=== PATIENT | female | born 1980 | race Hispanic/Latino ===

== ENCOUNTER 2016-08-12 23:16 | Inpatient (IN) | payer MEDICAID, OTHER ==
[2016-08-12 23:16] VITALS: BMI 23.4
[2016-08-13 00:22] LABS: BASO # 0.1 K/uL (0.0-0.2); BASO % 1.3 % (0.0-2.0); EOS # 0.3 K/uL (0.0-0.7); EOS % 2.4 % (0.0-4.0); HEMATOCRIT 40.2 % (34.0-47.0); LYMPH % 25.4 % (20.0-40.0); MEAN CELL VOLUME 95.1 fl (81.0-99.0); MEAN CORPUSCULAR HEMOGLOBIN 31.1 pg (27.0-31.0); MEAN CORPUSCULAR HGB CONC 32.7 g/dL (33.0-37.0); MEAN PLATELET VOLUME 10.1 fl (7.2-11.7); MONO # 0.5 K/uL (0.0-0.8); MONO % 4.5 % (0.0-10.0); NEUT # 7.7 K/uL (1.8-7.0); NEUT % 66.4 % (50.0-75.0); RED CELL DISTRIBUTION WIDTH 13.4 % (11.5-14.5); WHITE BLOOD COUNT 11.7 K/uL (4.8-10.8)
[2016-08-13 00:29] LABS: ALCOHOL SERUM < 10 mg/dl (0-10); BLOOD UREA NITROGEN 22 mg/dl (7-17); CALCIUM 9.5 mg/dL (8.4-10.2); CARBON DIOXIDE 29 mmol/L (22-30); CHLORIDE 102 mmol/L (98-107); GFR AFRICAN-AMERICAN > 60; GLUCOSE,RANDOM 92 mg/dL (65-105); POTASSIUM 3.9 MMOL/L (3.6-5.0); SODIUM 140 mmol/l (132-148)
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
[2016-08-13 03:46] LABS: RBC URINE 1 /hpf (0-3); URINE BACTERIA RARE (<OCC); URINE BILIRUBIN NEGATIVE (NEGATIVE); URINE BLOOD NEGATIVE (NEGATIVE); URINE COLOR YELLOW (YELLOW); URINE GLUCOSE (UA) NEG (Normal); URINE KETONE NEGATIVE (NEGATIVE); URINE LEUKOCYTE ESTERASE TRACE Leu/uL (Negative); URINE PROTEIN NEGATIVE (NEGATIVE); URINE UROBILINOGEN 0.2-1.0 mg/dL (0.2-1.0); WBC URINE 5 /hpf (0-5)
[2016-08-13 04:24] VITALS: O2SAT 100
[2016-08-13] MEDS ORDERED: Magnesium Hydroxide Susp 30 ml UD PO PRN (04:54)
[2016-08-13] MEDS ORDERED: Alum-Mag Hydrox-Simethicone Susp (30 mL) PO PRN (04:54)
[2016-08-13] MEDS ORDERED: DiphenhydrAMINE 50 mg/ml Inj IM PRN (04:54)
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
[2016-08-13 09:27] LABS: CHOLESTEROL 229 mg/dL (0-199)
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
--- NOTE | 2016-08-13 18:25 | PCM.PYCHPN ---
Psychiatric Progress Note - Psychiatric Progress Note Patient Chief Complaint: Boyfriend is devil Mental Status Examination - Homicidal Ideation Homicidal Ideation: No
--- NOTE | 2016-08-14 09:31 | PN ---
DATE: 08/14/2016 The patient seen and examined. Interim events noted. The patient remains in psychiatric unit. Psychiatry followup and intervention noted and appreciated. The patient denies any specific medica l complaints. PHYSICAL EXAMINATION: GENERAL: The patient is in no acute distress. VITAL SIGNS: Stable. Physical exam is essentially unchanged. DIAGNOSTIC DATA: Available reviewed. Overall, patient's general medical condition is stable. PLAN: As ordered. Zi Butler MD cc: [id number] TT: 08/14/2016 09:30:17 Confirmation # [id number] Dictation # [id number] en
[2016-08-14 10:08] LABS: T4 7.11 ug/dl (5.5-11.0)
[2016-08-14 10:21] LABS: THYROID STIMULATING HORMONE 2.99 mIU/ML (0.46-4.68)
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
--- NOTE | 2016-08-15 08:41 | PN ---
DATE: 08/15/2016 The patient seen and examined. Interim events noted. Psychiatric followup and intervention noted an d appreciated. The patient remains in psychiatric unit. Denies any specific medical complaint. No chest pain or shortness of breath. PHYSICAL EXAMINATION: GENERAL: The patient is in no acute distress. VITAL SIGNS: Stable. Physical exam is essentially unchanged. DIAGNOSTIC DATA: Available diagnostic data reviewed. Low cholesterol diet discussed and reviewed with patient. Overall, patient's general medical conditi on is stable. PLAN: As ordered. Zi Butler MD cc: [id number] TT: 08/15/2016 08:40:33 Confirmation # [id number] Dictation # [id number] mn
--- NOTE | 2016-08-15 11:24 | PCM.PYCHPN ---
Psychiatric Progress Note - Psychiatric Progress Note Patient seen today, length of contact: in treatment team Patient Chief Complaint: i am feeling a little better Problems Identified/Issues Discussed: pt denies side effects with haldol. feels it is helping with her symptoms. admits to hearing voices. admits to becoming paranoid when decompensated. states she is feeling safe here, not paranoid about staff or other patients. is willing to increase haldol and take decanoate form if helpful Medication Change: Yes (increase haldol to 5mg bid) Medical Record Reviewed: Yes Mental Status Examination - Cognitive Function Orientation: Person, Place, Situation, Time Attention: WNL Concentration: WNL Association: WNL Fund of Knowledge: [facility] Decription of patient's judgement and insights: fair - Mood Mood: Depressed, Anxious - Affect Affect: Constricted - Speech Speech: Soft - Formal Thought Process Formal Thought Process: Hallucinations (reports having auditory hallucinations) , Paranoia - Suicidal Ideation Suicidal Ideation: No - Homicidal Ideation Homicidal Ideation: No Goal/Treatment Plan - Goal/Treatment Plan Need for Continued Stay: Remain at risks for inpatient hospitalization, Severe depression anxiety, Discharge may exacerbated symptoms Progress Toward Problem(s) and Goals/Treatment Plan: schizophrenia, paranoid continue current treatment increase haldol to 5mg bid disposition planning Estimated Date of D/C: 08/17/16
--- NOTE | 2016-08-16 09:11 | PN ---
DATE: 08/16/2016 The patient seen and examined. Interim events noted. Psychiatry followup and intervention noted and appreciated. The patient remains in the psych unit. The patient feels okay. Denies any specific m edical complaint. No chest pain or shortness of breath. PHYSICAL EXAMINATION: GENERAL: The patient is in no acute distress. VITAL SIGNS: Stable. HEART: S1, S2 normal, regular. LUNGS: Good bilateral air entry. ABDOMEN: Soft, nontender. EXTREMITIES: No edema, no calf swelling, no tenderness, no ischemia. CENTRAL NERVOUS SYSTEM: Essentially unchanged. DIAGNOSTIC DATA: Available diagnostic data reviewed. Cholesterol level is 278. We will start patient on Lipitor ____ control the patient's ____ cholesterol. The patient did not e at before the blood test. Will start patient on 20 mg of Lipitor. PLAN: As ordered. Case and plan discussed with patient ____. Zi Butler MD cc: [id number] TT: 08/16/2016 09:10:34 Confirmation # [id number] Dictation # [id number] ernesto
--- NOTE | 2016-08-16 15:22 | PCM.PYCHPN ---
Psychiatric Progress Note - Psychiatric Progress Note Patient seen today, length of contact: in treatment team Patient Chief Complaint: i am feeling better Problems Identified/Issues Discussed: pt denies any side effects with increase in the haldol. states the voices are improving. states she will go back to live with her ex-. pt socializing more with peers. and attending groups. Medication Change: No ( ) Medical Record Reviewed: Yes Mental Status Examination - Cognitive Function Orientation: Person, Place, Situation, Time Memory: Intact Attention: WNL Concentration: WNL Association: WN Fund of Knowledge: [facility] Decription of patient's judgement and insights: fair - Mood Mood: Anxious - Affect Affect: Constricted - Speech Speech: Appropriate - Formal Thought Process Formal Thought Process: Hallucinations (hallucinations are improving) Psychotic Thoughts and Behaviors: internally preoccupied, hallucinations improving - Suicidal Ideation Suicidal Ideation: No - Homicidal Ideation Homicidal Ideation: No Goal/Treatment Plan - Goal/Treatment Plan Need for Continued Stay: Remain at risks for inpatient hospitalization, Severe depression anxiety, Discharge may exacerbated symptoms Progress Toward Problem(s) and Goals/Treatment Plan: schizophrenia, paranoid continue current treatment continue haldol 5mg bid disposition planning- discharge this week Estimated Date of D/C: 08/17/16
--- NOTE | 2016-08-17 07:50 | PN ---
DATE: 08/17/2016 The patient seen and examined. Interim events noted. Psychiatric followup and intervention noted an d appreciated. The patient remains in the psych unit. Feels okay. No chest pain, no shortness of b reath. No side effect from Lipitor. PHYSICAL EXAMINATION: GENERAL: The patient is in no acute distress. VITAL SIGNS: Stable. HEART: S1, S2 normal, regular. LUNGS: Good bilateral air entry. ABDOMEN: Soft, nontender. EXTREMITIES: No edema, no calf swelling, no tenderness, no acute ischemia. CENTRAL NERVOUS SYSTEM: Essentially unchanged. DIAGNOSTIC DATA: Available diagnostic data reviewed. Overall, patient's general medical condition is stable. PLAN: As ordered. Zi Butler MD cc: [id number] TT: 08/17/2016 07:49:34 Confirmation # [id number] Dictation # [id number] mn
--- NOTE | 2016-08-17 08:21 | PCM.PYCHPN ---
Psychiatric Progress Note - Psychiatric Progress Note Patient seen today, length of contact: discussed with team Patient Chief Complaint: i feel good Problems Identified/Issues Discussed: pt reports voices are not bothering her. she is less paranoid. she reports no side effects with increase in haldol. she is sleeping well. pt is focused on her discharge and is future oriented. not expressing paranoid thoughts at this time. Medication Change: No ( ) Medical Record Reviewed: Yes Mental Status Examination - Cognitive Function Orientation: Person, Place, Situation, Time Memory: Intact Attention: WNL Concentration: WNL Association: WN Fund of Knowledge: [facility] Decription of patient's judgement and insights: fair - Mood Mood: Neutral - Affect Affect: Constricted - Speech Speech: Appropriate - Formal Thought Process Formal Thought Process: Hallucinations Psychotic Thoughts and Behaviors: less internally preoccupied, hallucinations improving - Suicidal Ideation Suicidal Ideation: No - Homicidal Ideation Homicidal Ideation: No Goal/Treatment Plan - Goal/Treatment Plan Need for Continued Stay: Remain at risks for inpatient hospitalization, Severe depression anxiety, Discharge may exacerbated symptoms Progress Toward Problem(s) and Goals/Treatment Plan: schizophrenia, paranoid continue current treatment continue haldol 5mg bid disposition planning- discharge tomorrow Estimated Date of D/C: 08/18/16
--- NOTE | 2016-08-18 09:18 | PN ---
DATE: 08/18/2016 The patient seen and examined. Interim events noted. Psychiatric followup and intervention noted an d appreciated. The patient remains in psych unit. The patient is sleepy, arousable. No specific co mplaint or issues from nursing staff. PHYSICAL EXAMINATION: GENERAL: The patient is in no acute distress. VITAL SIGNS: Stable. HEART: S1, S2 normal, regular. LUNGS: Good bilateral air exchange. ABDOMEN: Soft, nontender. EXTREMITIES: No edema, no calf swelling, no tenderness, no acute ischemia. CENTRAL NERVOUS SYSTEM: Essentially unchanged. DIAGNOSTIC DATA: Available diagnostic data reviewed. The patient is tolerating Lipitor so far witho ut any overt side effect. The patient is medically stable. The patient is for possible discharge to day. The patient was advised to follow up in the office. Case and plan discussed with patient. Zi Butler MD cc: [id number] TT: 08/18/2016 09:17:15 Confirmation # [id number] Dictation # [id number] ernesto
--- NOTE | 2016-08-18 09:32 | PCM.PYCHDC ---
Mental Status Examination - Mental Status Examination Orientation: Person, Place, Situation, Time Memory: Intact Mood: Depressed Affect: Broad Speech: Appropriate Attention: WNL Concentration: WNL Association: WNL Fund of Knowledge: WNL Formal Thought Process: No Impairment Description of patient's judgement and insight: fair Psychotic Thoughts and Behaviors: denies any a/v hallucinations. no paranoid beliefs expressed Suicidal Ideation: No Current Homicidal Ideation?: No Plan: pt denies any suicidal or homicidal thoughts/plans of intent Discharge Summary - Discharge Note Reason for Hospitalization: paranoid thoughts, anxiety, suicidal thoughts Psychiatric History (includes Medical, Family, Personal Hx): schizoaffective disorder Consultations:: List each consultation separately and include: 1. Reason for request. 2. Findings. 3. Follow-up Consultations: seen by hospitalist Summary of Hospital Course include:: 1. Description of specific treatment plan utilized for patients during their course of treatmen. 2. Summarize the time- course for resolution of acute symptoms and/or regressed behaviors. 3. Describe issues identified and worked on during hospitalization. 4. Describe medication utilized. 5. Describe medical problems identified and treated. 6. Reassessment of suicide risk Summary of Hospital Course: pt was admitted to [facility] and oriented to the unit. she was placed on routine safety protocols. she was started on medications to address her psychosis- the dose of the haldol was increased up to 5mg bid and the patient tolerated this medication with improvement in symptoms. the patient participated in groups. she was goal directed and future oriented. she was denying any suicidal or homicidal thoughts at the time of discharge. she was agreeing to follow up with aftercare. - Final Diagnosis (DSM 5) Condition upon Discharge: STABLE DSM 5: schizophrenia, paranoid type Disposition: HOME/ ROUTINE Follow-up Treatment Plan: follow up with aftercare as directed take medications as prescribed do not use alcohol, tobacco or other illicit substances call 911 if any suicidal or homicidal thoughts. Prescriptions/Medication Reconciliation: Atorvastatin [Lipitor] 10 mg PO DAILY #30 tab Benztropine [Cogentin] 0.5 mg PO BID #60 tab Haloperidol [Haldol] 5 mg PO BID #60 tab - Smoking Cessation Smoking Cessation Medication prescribed: No Reason for not providing: declines - Antipsychotic Medications Pt discharged on 2 or more routine antipsychotic medications: No
[2016-08-18 10:03] VITALS: BP 103/57; PULSE 74; RESP 18; TEMP 97.7
== END 2016-08-18 10:21 | disposition home or self-care (01) | DRG 430 ==
LOC: H.ER 23:16 → H.EROBSV 23:42 → H.ERHOLD 08-13 03:53 → OBSVTOIN 08-13 03:53 → H.PSYCH 08-13 04:37
PROVIDERS: ADMIT Psychiatry & Neurology Psychiatry; ATTEND Psychiatry & Neurology Psychiatry
PROC: GZHZZZZ Group Psychotherapy (ICD-10-PCS; principal; 2016-08-13)
PROC: GZ58ZZZ Individual Psychotherapy, Cognitive-Behavioral (ICD-10-PCS; 2016-08-13)
DX: F25.9 Schizoaffective disorder, unspecified (principal); Z91.14 Patient's other noncompliance with medication regimen; F17.200 Nicotine dependence, unspecified, uncomplicated; E78.00 Pure hypercholesterolemia, unspecified; Z88.6 Allergy status to analgesic agent

== ENCOUNTER 2016-09-13 17:06 | Emergency (ER) | payer MEDICAID ==
[2016-09-13 17:06] VITALS: BMI 23.4
[2016-09-13 17:16] VITALS: BP 113/71; PULSE 84; RESP 18; TEMP 98; O2SAT 99
--- NOTE | 2016-09-13 18:42 | ED PDOC ---
HPI: Psych/Substance Abuse Time Seen by Provider: 09/13/16 17:17 Chief Complaint (Nursing): Psychiatric Evaluation Chief Complaint (Provider): Psychiatric Evaluation History Per: Patient History/Exam Limitations: no limitations Onset/Duration Of Symptoms: Hrs Current Symptoms Are (Timing): Still Present Additional Complaint(s): 35 y/o female with a past medical history of schizophrenia who presents to the emergency department with a complaint of anxiety and paranoia. States I was out too long today, became somewhat paranoid and asked police men for help" which promoted an emergency room visit. Reports she is due for her daily medication and is requesting dosage. According to history, patient was recently admitted last month for similar symptoms. Denies drug or alcohol usage, depression, suicidal/homicidal ideation or auditory/visual hallucinations. Past Medical History Reviewed: Historical Data, Nursing Documentation, Vital Signs Vital Signs: Last Vital Signs Temp 98 F 09/13/16 17:12 Pulse 84 09/13/16 17:12 Resp 18 09/13/16 17:12 BP 113/71 09/13/16 17:12 Pulse Ox 99 09/13/16 17:12 - Medical History PMH: Bipolar Disorder, Depression, Hypercholesterolemia, Schizophrenia Denies: Diabetes, Hepatitis, HIV, HTN, Chronic Kidney Disease, Seizures, Sexually Transmitted Disease - Surgical History Surgical History: (x3) - Family History Family History: States: Unknown Family Hx - Social History Current smoker - smoking cessation education provided: No Ex-Smoker (has not smoked in the last 12 months): Yes Alcohol: Social Drugs: Other - Immunization History Hx Tetanus Toxoid Vaccination: No Hx Influenza Vaccination: No Hx Pneumococcal Vaccination: No - Home Medications Home Medications: Ambulatory Orders Medication Instructions Recorded Atorvastatin [Lipitor] 10 mg PO DAILY #30 tab 08/18/16 Benztropine [Cogentin] 0.5 mg PO BID #60 tab 08/18/16 Haloperidol [Haldol] 5 mg PO BID #60 tab 08/18/16 - Allergies Allergies/Adverse Reactions: Allergies Allergy/AdvReac Type Severity Reaction Status Date / Time aspirin AdvReac NAUSEA Verified 08/12/16 23:26 Review of Systems ROS Statement: Except As Marked, All Systems Reviewed And Found Negative Psych: Positive for: Anxiety, Other (Paranoia). Negative for: Suicidal ideation (homicidal ideation or auditory/visual halluciations) Physical Exam - Reviewed Nursing Documentation Reviewed: Yes Vital Signs Reviewed: Yes - Physical Exam Appears: Positive for: Non-toxic, No Acute Distress Head Exam: Positive for: ATRAUMATIC, NORMAL INSPECTION, NORMOCEPHALIC Skin: Positive for: Normal Color, Warm, Dry Cardiovascular/Chest: Positive for: Regular Rate, Rhythm. Negative for: Murmur Respiratory: Positive for: Normal Breath Sounds. Negative for: Accessory Muscle Use, Respiratory Distress Gastrointestinal/Abdominal: Positive for: Normal Exam, Soft. Negative for: Tenderness Extremity: Positive for: Normal ROM. Negative for: Pedal Edema Neurologic/Psych: Positive for: Alert, Oriented, Mood/Affect (Cooperative and restful. ), Other (Mild pressured speech but communicative. Thought processes are logical. ) - ECG O2 Sat by Pulse Oximetry: 99 (RA) Pulse Ox Interpretation: Normal Medical Decision Making Medical Decision Making: Time: 17:22 Initial impression: Schizophrenia Initial plan: --Cogentin 0.5 mg PO --Haldol 5 mg PO --Reevaluation Time: 18:33 --Patient was evaluated by crisis and cleared for discharged by Dr. Allison --Upon provider reevaluation patient is feeling better, is medically stable, and requires no further treatment in the ED at this time. Patient will be discharged home and advised to take medications as prescribed. Counseling was provided and all questions were answered regarding diagnosis and need for follow up with referred clinic. There is agreement to discharge plan. Return if symptoms persist or worsen. She remains cooperative and denies suicidal thoughts or gestures. Clinical Impression: Schizophrenia Scribe Attestation: Documented by Lorena Lee, acting as a scribe for Ignacio Davidson MD. Provider Scribe Attestation: All medical record entries made by the Scribe were at my direction and personally dictated by me. I have reviewed the chart and agree that the record accurately reflects my personal performance of the history, physical exam, medical decision making, and the department course for this patient. I have also personally directed, reviewed, and agree with the discharge instructions and disposition. Disposition - Clinical Impression Clinical Impression: Schizophrenia - Patient ED Disposition Is Patient to be Admitted: No Counseled Patient/Family Regarding: Diagnosis, Need For Followup - Disposition Referrals: [facility] [Outside] Disposition: Routine/Home Disposition Time: 18:33 Condition: STABLE Additional Instructions: Followup with your psychiatrist as directed, take your medications as prescribed. Return to ER for any concern for yourself. Instructions: Schizophrenia (ED), Suicide Prevention for Adults (ED)
== END 2016-09-13 19:10 | disposition home or self-care (01) ==
LOC: H.ER 17:06
DX: F20.9 Schizophrenia, unspecified (principal); E78.00 Pure hypercholesterolemia, unspecified; F22 Delusional disorders; F31.9 Bipolar disorder, unspecified; F41.9 Anxiety disorder, unspecified; Z87.891 Personal history of nicotine dependence

== ENCOUNTER 2016-09-14 19:34 | Inpatient (IN) | payer MEDICAID ==
[2016-09-14 19:34] VITALS: BMI 23.4
[2016-09-14] MEDS ORDERED: Sodium Chloride 0.9% 1,000 ML IV STA (19:52)
[2016-09-14] MEDS ORDERED: DiphenhydrAMINE 50 mg/ml Inj IV STA (20:09)
[2016-09-14 20:23] LABS: EOS # 0.1 K/uL (0.0-0.7); MEAN CORPUSCULAR HEMOGLOBIN 31.5 pg (27.0-31.0); MONO # 0.4 K/uL (0.0-0.8); NEUT % 75.7 % (50.0-75.0)
[2016-09-14 20:28] LABS: SALICYLATE < 1.0 mg/dl
[2016-09-14 20:29] LABS: ALB/GLOB RATIO 1.5 (1.0-2.1); ALBUMIN 4.6 g/dL (3.5-5.0); ALT/SGPT 33 U/L (9-52); AST/SGOT 20 U/L (14-36); BLOOD UREA NITROGEN 10 mg/dl (7-17); CALCIUM 9.5 mg/dL (8.4-10.2); GFR AFRICAN-AMERICAN > 60; GFR NON-AFRICAN AMERICAN > 60
[2016-09-14 20:52] LABS: ACETAMINOPHEN < 10.0 ug/ml (10.0-30.0)
[2016-09-14 21:16] LABS: BASO % 0.5 % (0.0-2.0); EOS % 0.9 % (0.0-4.0); HEMOGLOBIN 13.1 g/dL (12.0-16.0); LYMPH # 1.7 K/uL (1.0-4.3); LYMPH % 18.7 % (20.0-40.0); MEAN CORPUSCULAR HGB CONC 33.5 g/dL (33.0-37.0); MEAN PLATELET VOLUME 9.3 fl (7.2-11.7); MONO % 4.2 % (0.0-10.0); NEUT # 6.8 K/uL (1.8-7.0); RBC 4.15 Mil/uL (3.80-5.20); RED CELL DISTRIBUTION WIDTH 12.6 % (11.5-14.5)
--- NOTE | 2016-09-14 21:31 | ED PDOC ---
HPI: Psych/Substance Abuse Time Seen by Provider: 09/14/16 19:48 Chief Complaint (Nursing): Psychiatric Evaluation Chief Complaint (Provider): Suicide attempt History Per: Patient, EMS Suicide/Self Injury Attempted (Context): Ingestion Additional Complaint(s): The patient is a 35yo female, with PMHx of dislipidemia, schizophrenia , suicide attempts, is brought to the ED by EMS for evaluation s/p self reported ingestion of twenty 5.0mg tablets of Haldol about 2 hours [employer]. Patient reports she ingested as a suicided attempt and at present is requesting provider for transfer to [facility]. Pt denies any auditory or visual hallucinations. Pt reports she took Buspar in the past but has been noncompliant as her pharmacy does not have the medicine. Additionally reports she has not been taking her cholesterol medication. Pt offers no other medical complaints. PCP: Dr. Zi Butler Past Medical History Reviewed: Historical Data, Nursing Documentation, Vital Signs Vital Signs: Last Vital Signs Temp 98.1 F 09/14/16 19:40 Pulse 89 09/14/16 19:40 Resp 16 09/14/16 19:40 BP Pulse Ox 97 09/14/16 19:40 - Medical History PMH: Bipolar Disorder, Depression, Hypercholesterolemia, Schizophrenia Denies: Diabetes, Hepatitis, HIV, HTN, Chronic Kidney Disease, Seizures, Sexually Transmitted Disease - Surgical History Surgical History: (x3) - Family History Family History: States: Unknown Family Hx - Social History Current smoker - smoking cessation education provided: Yes Alcohol: None Drugs: Denies - Immunization History Hx Tetanus Toxoid Vaccination: No Hx Influenza Vaccination: No Hx Pneumococcal Vaccination: No - Home Medications Home Medications: Ambulatory Orders Medication Instructions Recorded Atorvastatin [Lipitor] 10 mg PO DAILY #30 tab 08/18/16 Benztropine [Cogentin] 0.5 mg PO BID #60 tab 08/18/16 Haloperidol [Haldol] 5 mg PO BID #60 tab 08/18/16 - Allergies Allergies/Adverse Reactions: Allergies Allergy/AdvReac Type Severity Reaction Status Date / Time aspirin AdvReac NAUSEA Verified 09/14/16 19:39 Review of Systems ROS Statement: Except As Marked, All Systems Reviewed And Found Negative Psych: Positive for: Depression, Suicidal ideation Physical Exam - Reviewed Nursing Documentation Reviewed: Yes Vital Signs Reviewed: Yes - Physical Exam Appears: Positive for: Well, Non-toxic, No Acute Distress Head Exam: Positive for: ATRAUMATIC, NORMAL INSPECTION, NORMOCEPHALIC Skin: Positive for: Normal Color, Warm Eye Exam: Positive for: Normal appearance Neck: Positive for: Normal, Supple Cardiovascular/Chest: Positive for: Regular Rate, Rhythm Respiratory: Positive for: Normal Breath Sounds. Negative for: Respiratory Distress Neurologic/Psych: Positive for: Alert, Oriented - Laboratory Results Result Diagrams: 09/14/16 21:00 09/14/16 20:00 - ECG O2 Sat by Pulse Oximetry: 97 (RA) Pulse Ox Interpretation: Normal Medical Decision Making Medical Decision Making: Time: 1999 Impression: 35 yo female with overdose attempt in setting of known Hx of Schizophrenia Plan: -- 1:1 observation -- EKG -- Labs -- Poison Control Teleconsult -- IV Fluids Reassess Time: 2056 Poison control advised for a repeat EKG and magnesium level which have both been ordered. Time: [address] Butler, pt to be admitted medically to telemetry for further evaluation and treatment. Scribe Attestation: Documented by Jeanette Claudio acting as a scribe for Toan Hutton MD. Provider Attestation: All medical record entries made by the Scribe were at my direction and personally dictated by me. I have reviewed the chart and agree that the record accurately reflects my personal performance of the history, physical exam, medical decision making, and the department course for this patient. I have also personally directed, reviewed, and agree with the discharge instructions and disposition. Disposition - Clinical Impression Clinical Impression: Overdose - Patient ED Disposition Is Patient to be Admitted: Yes Discussed With : Zi Butler Doctor Will See Patient In The: Hospital - Disposition Disposition Time: 21:05 Condition: FAIR - Pt Status Changed To: Hospital Disposition Of: Inpatient - Admit Certification Admit to Inpatient:: After my assessment, the patient will require hospitalization for at least two midnights. This is because of the severity of symptoms shown, intensity of services needed, and/or the medical risk in this patient being treated as an outpatient.
--- NOTE | 2016-09-15 08:47 | CP.PCM.HP ---
<Brandon De Paz - Last Filed: 09/15/16 12:47> History of Present Illness - History of Present Illness History of Present Illness: 35 y/o female with PMHx remarkable for schizophrenia, dyslipidemia, and multiple prior suicide attempts was brought to the ED by EMS for evaluation after ingestion of around twenty 5.0mg tablets of Haldol as per PT. Patient reports she ingested them as a suicided attempt. Reports she has been more stressed out recently because she feels as if "people are out to kill her". Pt denies any auditory or visual hallucinations. Denies any other complaints. Denies fever/chills, headaches, changes in vision, CP/SOB/palpitations, N/V/D/C , urinary symptoms, numbness/tingling. PMD: Dr. Zi Butler PMHx: schizophrenia, multipe suicide attempts, dyslipidemia Meds: Buspar (has not taken as pharmacy doesnt carry), Haldol, Lipitor PSurgHx: x3, Liposuction ALL: Aspirin (nausea) POBHx: PGynHx: LMP: August 29, 2016, regular SocialHx: Tobacco 1PPD for 20 years, ETOH last usage 2 months ago, denies illicit drug use FamilyHx: noncontributory ED COURSE Vitals on presentation: BP: 111/70, Temp: 98.1, HR: 89, RR: 16, POX: 97% on RA Labs ordered: CBC: wnl CMP: wnl Ma.0 Serum Alc/salicylates: neg Imaging ordered: EKG: NSR, QT prolongation at 446 CXR: no active pulmonary disease Consults: Poison control was called, recommended f/u EKG and Mag level decision was made to admit pt. Present on Admission - Present on Admission Any Indicators Present on Admission: No Review of Systems - Review of Systems All systems: reviewed and no additional remarkable complaints except - Constitutional Constitutional: As Per HPI Past Patient History - Past Medical History & Family History Past Medical History?: Yes - Past Social History Smoking Status: Heavy Smoker > 10 Cigarettes Daily Chewing Tobacco Use: No Cigar Use: No Alcohol: None Drugs: Denies - CARDIAC Hx Hypercholesterolemia: Yes Hx Hypertension: No - PULMONARY Hx Tuberculosis: No - NEUROLOGICAL Hx Seizures: No - HEENT Hx HEENT Problems: No - RENAL Hx Chronic Kidney Disease: No - ENDOCRINE/METABOLIC Hx Endocrine Disorders: No - HEMATOLOGICAL/ONCOLOGICAL Hx Human Immunodeficiency Virus (HIV): No - INTEGUMENTARY Hx Dermatological Problems: No - MUSCULOSKELETAL/RHEUMATOLOGICAL Hx Musculoskeletal Disorders: No Hx Falls: No - GASTROINTESTINAL Hx Gastrointestinal Disorders: No - GENITOURINARY/GYNECOLOGICAL Hx Sexually Transmitted Disorders: No - PSYCHIATRIC Hx Bipolar Disorder: Yes Hx Depression: Yes Hx Schizophrenia: Yes - SURGICAL HISTORY Hx Surgeries: Yes Hx Section: Yes (x3) - ANESTHESIA Hx Anesthesia: Yes Hx Anesthesia Reactions: No Meds Allergies/Adverse Reactions: Allergies Allergy/AdvReac Type Severity Reaction Status Date / Time aspirin AdvReac NAUSEA Verified 09/14/16 19:39 Physical Exam - Constitutional Appears: Non-toxic, No Acute Distress - Head Exam Head Exam: ATRAUMATIC, NORMOCEPHALIC - Eye Exam Eye Exam: EOMI Pupil Exam: PERRL - ENT Exam ENT Exam: Mucous Membranes Moist - Neck Exam Neck exam: Positive for: Normal Inspection - Respiratory Exam Respiratory Exam: Clear to Auscultation Bilateral, NORMAL BREATHING PATTERN. absent: Rales, Rhonchi, Wheezes - Cardiovascular Exam Cardiovascular Exam: REGULAR RHYTHM, RRR, +S1, +S2. absent: Gallop, JVD, Rubs, Systolic Murmur - GI/Abdominal Exam GI & Abdominal Exam: Normal Bowel Sounds, Soft. absent: Distended, Firm, Guarding, Tenderness - Extremities Exam Extremities exam: Positive for: normal inspection, pedal pulses present. Negative for: calf tenderness, pedal edema - Neurological Exam Neurological exam: Alert, CN II-XII Intact, Oriented x3 - Psychiatric Exam Psychiatric exam: Normal Affect, Normal Mood - Skin Skin Exam: Dry, Intact, Normal Color, Warm Results - Vital Signs Recent Vital Signs: Last Vital Signs Temp 98.5 F 09/15/16 08:00 Pulse 65 09/15/16 08:00 Resp 18 09/15/16 08:00 BP 108/69 09/15/16 08:00 Pulse Ox 98 09/15/16 08:00 - Labs Result Diagrams: 09/14/16 21:00 09/14/16 20:00 Labs: Laboratory Results - last 24 hr 09/14/16 21:11 Magnesium 2.0 Assessment & Plan (1) Overdose Assessment and Plan: -poison control notified -Mag level WNL -CBC/CMP WNL -pt AAOx3, wants to be transferred to psych unit -psych consult appreciated -cleared medically for transfer Status: Acute Priority: High <Butler,Zi K - Last Filed: 09/15/16 16:21> Results - Vital Signs Recent Vital Signs: Last Vital Signs Temp 98.2 F 09/15/16 16:14 Pulse 75 09/15/16 16:14 Resp 16 09/15/16 16:14 BP 109/67 09/15/16 16:14 Pulse Ox 98 09/15/16 16:14 - Labs Result Diagrams: 09/14/16 21:00 09/14/16 20:00 Labs: Laboratory Results - last 24 hr 09/14/16 21:11 Magnesium 2.0 Assessment & Plan - Assessment and Plan (Free Text) Assessment: Patient was personally seen and examined by me in rounds with residents. Available labs and diagnostic data reviewed. Case, patient's condition and management plan discussed with residents in rounds. Agree with resident's progress note. Plan: As ordered.
--- NOTE | 2016-09-15 09:25 | RAD ---
HISTORY: admit COMPARISON: No prior. FINDINGS: LUNGS: The lungs are well inflated and clear. PLEURA: No significant pleural effusion identified, no pneumothorax apparent. CARDIOVASCULAR: Normal. OSSEOUS STRUCTURES: No significant abnormalities. VISUALIZED UPPER ABDOMEN: Normal. OTHER FINDINGS: None. IMPRESSION: No active pulmonary disease.
[2016-09-15] MEDS: Enoxaparin 40 mg Syringe SC SCH ×2 (10:37→11:09)
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
--- NOTE | 2016-09-15 18:26 | CARD ---
APPROVED REPORT EKG Measurement Heart [id number] <Conclusion> Normal sinus rhythm Prolonged QT Abnormal ECG
[2016-09-16] MEDS: Enoxaparin 40 mg Syringe SC SCH (09:15)
[2016-09-16 12:21] LABS: BENZODIAZEPINES, UR NEGATIVE (NEGATIVE); OPIATES, UR NEGATIVE (NEGATIVE); PHENCYCLIDINE, UR NEGATIVE (NEGATIVE)
[2016-09-16 12:35] LABS: BARBITURATES, UR NEGATIVE (NEGATIVE)
[2016-09-17] MEDS: Enoxaparin 40 mg Syringe SC SCH (08:39)
[2016-09-18 00:25] LABS: SQUAMOUS EPITHIAL 1 /hpf (0-5); URINE BACTERIA RARE (<OCC); URINE BILIRUBIN NEGATIVE (NEGATIVE); URINE BLOOD NEGATIVE (NEGATIVE); URINE CLARITY CLEAR (Clear); URINE COLOR YELLOW (YELLOW); URINE GLUCOSE (UA) NEG (Normal); URINE LEUKOCYTE ESTERASE NEG Leu/uL (Negative); URINE NITRATE NEGATIVE (NEGATIVE); URINE PROTEIN NEGATIVE (NEGATIVE); URINE UROBILINOGEN 0.2-1.0 mg/dL (0.2-1.0)
[2016-09-18] MEDS: Enoxaparin 40 mg Syringe SC SCH (09:10)
[2016-09-18 23:50] VITALS: BP 126/80; PULSE 84; RESP 19; TEMP 98.3; O2SAT 99
--- NOTE | 2016-09-29 15:55 | PN ---
This is Dr. Zi Butler dictating for patient Coretta Leonardo # [id number] 09/18/16 Patient seen in examination was noted. Patient is wotuh out progress of care ____.Patient is sleeping ____without no specific medical complaints. No chest pain, no SOB. Physical exam Patient is ____. Vitals are stable Heart: S1, S2, regular. Patient's medical condition was stable. Zi Butler MD
--- NOTE | 2016-10-03 14:04 | PN ---
DR MAURIZIO MENDIETA Patient one to one observation for safety. Patient is easily __. Patient complains of nausea, chest pain, headache, , also not able to sleep well. But according to one of the , Last night patient slept very well. Physical exam patient is heart is lungs is soft and tender. . Patient is nasal OMCs. Plan is ' MD MATT Alcocer
== END 2016-09-19 00:15 | DRG 449 ==
LOC: H.ER 19:34 → H.ERHOLD 21:05 → H.TEL 23:10
PROVIDERS: ADMIT Internal Medicine; ATTEND Internal Medicine
DX: T43.4X2A Poisoning by butyrophenone and thiothixene neuroleptics, intentional self-harm, initial encounter (principal); F20.0 Paranoid schizophrenia; E78.5 Hyperlipidemia, unspecified; E78.00 Pure hypercholesterolemia, unspecified; F17.210 Nicotine dependence, cigarettes, uncomplicated; F31.9 Bipolar disorder, unspecified

== ENCOUNTER 2017-03-30 06:32 | Inpatient (IN) | payer MEDICAID ==
[2017-03-30 06:33] VITALS: BMI 23.4
--- NOTE | 2017-03-30 07:12 | ED PDOC ---
HPI: Psych/Substance Abuse Time Seen by Provider: 03/30/17 07:06 Chief Complaint (Nursing): Psychiatric Evaluation History Per: Patient Onset/Duration Of Symptoms: Days (2) Current Symptoms Are (Timing): Still Present Suicide/Self Injury Attempted (Context): None Modifying Factor(s): None Severity: Moderate Associated Symptoms: Depression, Suicidal Thoughts, Suicidal Plan Additional Complaint(s): Admits ti SI with plan wants to jump in front of light rail after cheating on boyfriend Past Medical History Vital Signs: Last Vital Signs Temp 97.1 F L 03/30/17 06:47 Pulse 92 H 03/30/17 06:47 Resp 18 03/30/17 06:47 BP 113/77 03/30/17 06:47 Pulse Ox 100 03/30/17 06:47 - Medical History PMH: Anxiety, Bipolar Disorder, Depression, Hypercholesterolemia, Schizophrenia Denies: Diabetes, Hepatitis, HIV, HTN, Chronic Kidney Disease, Seizures, Sexually Transmitted Disease - Surgical History Surgical History: (x3) - Family History Family History: States: Unknown Family Hx - Immunization History Hx Tetanus Toxoid Vaccination: No Hx Influenza Vaccination: No Hx Pneumococcal Vaccination: No - Home Medications Home Medications: Ambulatory Orders Medication Instructions Recorded Atorvastatin [Lipitor] 10 mg PO DAILY #30 tab 08/18/16 Benztropine [Cogentin] 0.5 mg PO BID #60 tab 08/18/16 Haloperidol [Haldol] 5 mg PO BID #60 tab 08/18/16 Olanzapine [Zyprexa] 5 mg PO BID #14 tablet 01/12/17 Olanzapine [Zyprexa] 5 mg PO BID #14 tablet 01/12/17 Acyclovir 400 mg PO 5XD #35 tablet 02/05/17 Ciprofloxacin HCl [Ciloxan] 1 drop OS QID #5 ml 02/05/17 OLANZapine [ZyPREXA] 10 mg PO BID 02/15/17 Nitrofurantoin Macrocrystals 100 mg PO Q12 #14 cap 02/20/17 [Macrobid] OLANZapine [Zyprexa] 10 mg PO BID #14 tab 02/20/17 - Allergies Allergies/Adverse Reactions: Allergies Allergy/AdvReac Type Severity Reaction Status Date / Time aspirin AdvReac NAUSEA Verified 09/14/16 19:39 Review of Systems ROS Statement: Except As Marked, All Systems Reviewed And Found Negative Psych: Positive for: Depression, Suicidal ideation Physical Exam - Reviewed Nursing Documentation Reviewed: Yes Vital Signs Reviewed: Yes - Physical Exam Appears: Positive for: Non-toxic, No Acute Distress Head Exam: Positive for: ATRAUMATIC, NORMAL INSPECTION, NORMOCEPHALIC Skin: Positive for: Normal Color, Warm, DRY Eye Exam: Positive for: EOMI, Normal appearance, PERRL ENT: Positive for: Normal ENT Inspection Neck: Positive for: Normal, Painless ROM Cardiovascular/Chest: Positive for: Regular Rate, Rhythm Respiratory: Positive for: CNT, Normal Breath Sounds Gastrointestinal/Abdominal: Positive for: Normal Exam, Bowel Sounds, Soft Back: Positive for: Normal Inspection Extremity: Positive for: Normal ROM Neurologic/Psych: Positive for: Alert, Oriented - Laboratory Results Result Diagrams: 03/30/17 07:31 03/30/17 07:31 - ECG O2 Sat by Pulse Oximetry: 100 Medical Decision Making Medical Decision Making: Medically stable for psychiatric admission Disposition - Clinical Impression Clinical Impression: Depression - Patient ED Disposition Is Patient to be Admitted: Yes - Disposition Referrals: Jozef Galo [Primary Care Provider] - Disposition Time: 09:58 Condition: FAIR Forms: [employer] (Faroese) - Pt Status Changed To: Hospital Disposition Of: Inpatient - Admit Certification Admit to Inpatient:: After my assessment, the patient will require hospitalization for at least two midnights. This is because of the severity of symptoms shown, intensity of services needed, and/or the medical risk in this patient being treated as an outpatient. - POA Present On Arrival: None
[2017-03-30 07:39] LABS: BASO # 0.1 K/uL (0.0-0.2); BASO % 0.8 % (0.0-2.0); EOS # 0.3 K/uL (0.0-0.7); EOS % 3.1 % (0.0-4.0); HEMOGLOBIN 12.4 g/dL (12.0-16.0); LYMPH # 1.9 K/uL (1.0-4.3); LYMPH % 19.9 % (20.0-40.0); MEAN CELL VOLUME 92.6 fl (81.0-99.0); MEAN CORPUSCULAR HEMOGLOBIN 31.2 pg (27.0-31.0); MEAN CORPUSCULAR HGB CONC 33.7 g/dL (33.0-37.0); MEAN PLATELET VOLUME 9.5 fl (7.2-11.7); MONO # 0.5 K/uL (0.0-0.8); MONO % 5.4 % (0.0-10.0); NEUT # 6.7 K/uL (1.8-7.0); NEUT % 70.8 % (50.0-75.0); NRBC % 0.1 % (0.0-0.0); RBC 3.97 Mil/uL (3.80-5.20); RED CELL DISTRIBUTION WIDTH 13.5 % (11.5-14.5); WHITE BLOOD COUNT 9.5 K/uL (4.8-10.8)
[2017-03-30 08:01] LABS: ALB/GLOB RATIO 1.2 (1.0-2.1); ALBUMIN 3.7 g/dL (3.5-5.0); ALT/SGPT 29 U/L (9-52); AST/SGOT 17 U/L (14-36); BLOOD UREA NITROGEN 19 mg/dl (7-17); CALCIUM 9.1 mg/dL (8.4-10.2); GFR AFRICAN-AMERICAN > 60; GFR NON-AFRICAN AMERICAN > 60
[2017-03-30 10:52] LABS: BARBITURATES, UR NEGATIVE (NEGATIVE); BENZODIAZEPINES, UR NEGATIVE (NEGATIVE); OPIATES, UR NEGATIVE (NEGATIVE); PHENCYCLIDINE, UR NEGATIVE (NEGATIVE)
[2017-03-30 11:03] VITALS: O2SAT 96
--- NOTE | 2017-03-30 11:19 | CARD ---
APPROVED REPORT EKG Measurement Heart [id number] <Conclusion> Sinus rhythm with short VA Left posterior fascicular block Nonspecific T wave abnormality Abnormal ECG
--- NOTE | 2017-03-30 12:00 | RAD ---
HISTORY: psych screen COMPARISON: Chest radiograph dated 09/14/2016. FINDINGS: LUNGS: No active pulmonary disease. PLEURA: No significant pleural effusion identified, no pneumothorax apparent. CARDIOVASCULAR: Normal. OSSEOUS STRUCTURES: No significant abnormalities. VISUALIZED UPPER ABDOMEN: Normal. OTHER FINDINGS: None. IMPRESSION: No active disease.
--- NOTE | 2017-03-30 14:53 | PCM.BM ---
<KwakuAmparo - Last Filed: 03/30/17 14:51> Treatment Plan Problems - Problems identified on initial assessmt Feelings of Worthlessness Date Initiated: 03/30/17 Time Initiated: 14:52 Assessment reference: NA Status: Active Treatment assets and liabiliti Patient Assests: ADL independent, physically healthy, negotiates basic needs, cognitively intact Patient Liabilities: financial problems, poor support system, relationship conflicts - Milieu Protocol Maintain good personal hygiene: daily Encourage regular showers, every shift Remind patient to perform daily oral care, every shift Assist patient to perform ADL's Conduct patient checks and document Observation sheet: Q15 minutes Maintain personal safety: every shift Educate patient to report safety concerns to staff, every shift Monitor environment for contraband/sharps Medication safety: Monitor for expected outcome, potential side effects: every shift, Assess barriers to learning: every shift, Assess readiness for medication education: every shift <Pablito Vega - Last Filed: 04/02/17 10:17> Family Contact Family involvement: Famliy/SO not involved Family contact: Patient declines to allow family contact at present Family contact name: Pt denied. - Outside Agency Agency 1 Care involvment: Following patient during stay Agency contact name: [facility] outpatient Agency contact number: [phone] - Goals for Treatment Patient goals for treatment: Pt is focused on discharge and her main concern is to obtain more stable housing. Pt reported that she was staying at [facility] longterm , yet she finds it very difficult to survive in this environment as she is not "street" enough. 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 Discharge/Continuing Care - Education Needs Education Needs: Patient Medication, Patient Diagnosis/Disease Process, Patient Coping Skills, Patient Community resources, Patient Aftercare Safety Plan - Discharge Discharge Criteria: Tolerates medication w/o severe side effects, Free of paranoid thoughts, Free of agitation, Normal sleep pattern, Reduction of target symptoms Discharge to:: Longterm - Treatment Team Participation Discussed with Family/SO: No Was Patient/Family/SO present at Treatment Team Meeting: Yes <Lucille Jay - Last Filed: 04/02/17 14:49> Discharge/Continuing Care - Treatment Team Participation Patient/Family/SO Statement: 04/02/17 14:50 Patient attended tx team this morning and was able to participate in discussion regarding progress on 3NP and aftercare. Patient reports improvement in symptoms of depression since admission, stating "the medications are working." Patient somewhat guarded but cooperative and pleasant. Patient denies SI/HI and is able to contract for safety on 3NP. No harmful behaviors noted. Patient somewhat withdrawn but observed socializing appropriately with select peers. Patient expressed wanting to return to [facility] for outpatient mental health services upon discharge. Patient reports having been inconsistently compliant with aftercare for several weeks prior to admission but reports being connected to Radha Galo ([facility]). Patient reports she will go to [facility] until she receives SSI funds in April. <Linda Diamond - Last Filed: 04/06/17 10:36> - Diagnosis (1) Depression Status: Acute Interventions: psychotherapy pharmacotherapy 04/03/17 11:09
[2017-03-30] MEDS ORDERED: DiphenhydrAMINE 50 mg/ml Inj IM PRN (15:40)
[2017-03-30] MEDS ORDERED: Alum-Mag Hydrox-Simethicone Susp (30 mL) PO PRN (15:40)
[2017-03-30] MEDS ORDERED: Magnesium Hydroxide Susp 30 ml UD PO PRN (15:40)
--- NOTE | 2017-03-30 16:04 | PCM.PSYCH ---
Initial Psychiatric Evaluation - Initial Psychiatric Evaluation Type of Admission: Voluntary Legal Status: Capacity Chief Complaint (in patient's own words): I did not have my medicine and I was depressed Patient's Reaction to Hospitalization: pt requested help History of Present Illness and Precipitating Events: pt with previous psychiatric diagnosis of schizoaffective disorder, multiple inpatient hospitalizations, reportedly non compliant with medications, pt became increasingly depressed, also has been having financial difficulties and housing problems, pt started experiencing suicidal ideations with the plan to jump off the bridge, pt presented to ER seeking help pt reported depressed mood , hopelessness , helplessness, paranoid and persecutory delusions feeling that people are after her, decreased sleep denied command hallucinations denied suicidal or homicidal ideations on the unit no reported substance use Current Medications: Active Medications Generic Name Dose Route Start Last Admin Trade Name Freq PRN Reason Stop Dose Admin Acetaminophen 650 mg 03/30/17 15:40 Tylenol 325mg Tab PO Q4 PRN Pain, moderate (4-7) Al Hydrox/Mg Hydrox/Simethicone 30 ml 03/30/17 15:40 Maalox Plus 30 Ml PO Q4 PRN Dyspepsia Diphenhydramine HCl 50 mg 03/30/17 15:40 Benadryl IM Q6 PRN Extrapyramidal S/S Unable PO Diphenhydramine HCl 50 mg 03/30/17 15:40 Benadryl PO Q6 PRN Extrapyramidal Symptoms Haloperidol 5 mg 03/30/17 15:40 Haldol PO Q4 PRN Agitation Haloperidol Lactate 5 mg 03/30/17 15:40 Haldol IM Q4 PRN Agitation, Unable to Take PO Lorazepam 2 mg 03/30/17 15:40 Ativan IM Q4 PRN Anxiety/Agitation,Unable PO Lorazepam 2 mg 03/30/17 15:40 Ativan PO Q4 PRN Anxiety/Agitation Magnesium Hydroxide 30 ml 03/30/17 15:40 Milk Of Magnesia PO HS PRN Constipation Olanzapine 5 mg 03/30/17 22:00 Zyprexa PO HS XAVIER Past Psychiatric History - Past Psychiatric History Explanation of prior treatment: pt has history of multiple inpatient hospitalizations, due to paranoid delusions and disorganized behavior History of Abuse: denied History of ETOH/Drug Use: denied History of Family Illness: denied Pertinent Medical Hx (Current Medical&Sleep Prob, Allergies): Allergies Allergy/AdvReac Type Severity Reaction Status Date / Time aspirin AdvReac NAUSEA Verified 09/14/16 19:39 OLANZapine [Zyprexa] 10 mg PO BID #14 tab 02/20/17 Mental Status Examination - Personal Presentation Personal Presentation: Looks stated age Additional comments: unkempt, disheveled - Affect Affect: Constricted, Depressed - Motor Activity Motor Activity: Psychomotor Retardation - Reliability in Providing Information Reliability in Providing Information: Poor, due to alteration in thoughts, Poor , due to altered mood - Speech Speech: Tangential - Mood Mood: Depressed, Anxious - Formal Thought Process Formal Thought Process: Delusions, Paranoia Additional comments: pt has delusions of persecution - Hallucinations/Delusions Additional comments: pt denied perceptual disturbances, non elicited - Obsessions/Compulsions Obsessions: No Compulsions: No - Cognitive Functions Orientation: Person, Place Sensorium: Alert Attention/Concentration: Easily distracted Abstract Thinking: [place] Estimate of Intelligence: Below average Judgement: Imparied, as evidence by: Poor judgement, Imparied, as evidence by: Lack of insight into illness Memory: Recent intact, as evidence by: Ability to recall events of the day - Risk Risk: Suicidal, Diminished functioning - Strength & Assets Inventory Strength & Assets Inventory: Life experience - Limitations Additional comments: poor compliance DSM 5 DX - DSM 5 DSM 5 Diagnosis: schizoaffective disorder bipolar type - Recommended/Plan of Treatment Treatment Recommendations and Plan of Treatment: start zyprexa 5mg qhs with plan to uptitrate CBT , supportive and group therapy Projected ELOS: 7 days Discharge Plan and Discharge Criteria: pt no longer has suicidal ideations
--- NOTE | 2017-03-31 10:40 | PCM.PYCHPN ---
Psychiatric Progress Note - Psychiatric Progress Note Patient seen today, length of contact: pt seen and evaluated Patient Chief Complaint: pt is still depressed and still anxious and still feels paranoid and tolerating zyprexa well and denies suicidal ideation. Medication Change: No Medical Record Reviewed: Yes Mental Status Examination - Cognitive Function Orientation: Person, Place Attention: Poor Concentration: Poor Association: WNL Fund of Knowledge: WNL - Mood Mood: Depressed, Anxious - Affect Affect: Constricted, Depressed - Formal Thought Process Formal Thought Process: Delusions, Paranoia, Flight of ideas - Suicidal Ideation Suicidal Ideation: No - Homicidal Ideation Homicidal Ideation: No Goal/Treatment Plan - Goal/Treatment Plan Progress Toward Problem(s) and Goals/Treatment Plan: Will continue to stabilize the pt by titrating zyprexa and engaging pt in therapy. D/c plans as per dr wallace
--- NOTE | 2017-04-01 12:58 | PCM.PYCHPN ---
Psychiatric Progress Note - Psychiatric Progress Note Patient seen today, length of contact: pt seen and evaluated Patient Chief Complaint: pt is still depressed and still anxious and still feels paranoid and tolerating zyprexa well and denies suicidal ideation. Medication Change: No Medical Record Reviewed: Yes Mental Status Examination - Cognitive Function Orientation: Person, Place Attention: Poor Concentration: Poor Association: WNL Fund of Knowledge: WNL - Mood Mood: Depressed, Anxious - Affect Affect: Constricted, Depressed - Formal Thought Process Formal Thought Process: Delusions, Paranoia, Flight of ideas - Suicidal Ideation Suicidal Ideation: No - Homicidal Ideation Homicidal Ideation: No Goal/Treatment Plan - Goal/Treatment Plan Progress Toward Problem(s) and Goals/Treatment Plan: Will continue to stabilize the pt by titrating zyprexa to 10 mg hs and engaging pt in therapy. D/c plans as per dr wallace
[2017-04-01] MEDS: guaiFENesin DM 200 mg-20 mg/10 ml UD PO PRN (16:52)
[2017-04-01] MEDS ORDERED: Sodium Chloride 3% for Inhalation 4 ML VIAL.NEB IH PRN (21:12)
[2017-04-02 05:02] LABS: SQUAMOUS EPITHIAL 1 /hpf (0-5); URINE BACTERIA RARE (<OCC); URINE BILIRUBIN NEGATIVE (NEGATIVE); URINE BLOOD SMALL (NEGATIVE); URINE CLARITY SLIGHTY-CLOUDY (Clear); URINE COLOR YELLOW (YELLOW); URINE GLUCOSE (UA) NEG (Normal); URINE LEUKOCYTE ESTERASE MOD Leu/uL (Negative); URINE NITRATE NEGATIVE (NEGATIVE); URINE PROTEIN NEGATIVE (NEGATIVE); URINE UROBILINOGEN 0.2-1.0 mg/dL (0.2-1.0)
--- NOTE | 2017-04-02 14:09 | PCM.PYCHPN ---
Psychiatric Progress Note - Psychiatric Progress Note Patient seen today, length of contact: pt seen and evaluated Patient Chief Complaint: I feel better now when I am on my medicine Problems Identified/Issues Discussed: pt seen on the unit more kempt, less irritable, continues to be guarded needs encouragment to attend groups reportes clearing off of her thought process denied any current suicidal or homicidal ideations denied perceptual disturbances denied side effect of medications Medical Problems: pt has history of multiple inpatient hospitalizations, due to paranoid delusions and disorganized behavior DSM 5 Symptoms Update: schizoaffective disorder bipolar type Medication Change: No Medical Record Reviewed: Yes Mental Status Examination - Cognitive Function Orientation: Person, Place Attention: WNL Concentration: WNL Association: WNL Fund of Knowledge: Poor Decription of patient's judgement and insights: partial insight and poor judgment - Mood Mood: Depressed, Anxious - Affect Affect: Constricted, Depressed - Formal Thought Process Formal Thought Process: Delusions, Paranoia, Flight of ideas Psychotic Thoughts and Behaviors: pt continues to be guarded paranoid, denied command hallucinations - Suicidal Ideation Suicidal Ideation: No - Homicidal Ideation Homicidal Ideation: No Goal/Treatment Plan - Goal/Treatment Plan Need for Continued Stay: Severe depression anxiety, Discharge may exacerbated symptoms Progress Toward Problem(s) and Goals/Treatment Plan: zyprexa uptitrated to 10mg qhs continue with CBT , supportive and group therapy
--- NOTE | 2017-04-03 12:07 | PCM.PYCHPN ---
Psychiatric Progress Note - Psychiatric Progress Note Patient seen today, length of contact: pt seen and evaluated Patient Chief Complaint: I am feeling sick, I had a fever Problems Identified/Issues Discussed: pt seen in bed, stuart bales cooperative reported stable mood appropriate affect , thought process more clear pt denied any current suicidal or homicidal ideations, denied perceptual disturbances pt has experienced a fever of 102 last night family practice consulted will follow up on urine and sputum culture Medical Problems: pt has history of multiple inpatient hospitalizations, due to paranoid delusions and disorganized behavior DSM 5 Symptoms Update: schizoaffective disorder Medication Change: No Medical Record Reviewed: Yes Mental Status Examination - Cognitive Function Orientation: Person, Place Attention: WNL Concentration: WNL Association: WNL Fund of Knowledge: Poor Decription of patient's judgement and insights: partial insight and poor judgment - Mood Mood: Anxious, Neutral - Affect Affect: Constricted, Depressed - Speech Speech: Appropriate - Formal Thought Process Formal Thought Process: Circumstantial Psychotic Thoughts and Behaviors: pt continues to be guarded paranoid, denied command hallucinations - Suicidal Ideation Suicidal Ideation: No - Homicidal Ideation Homicidal Ideation: No Goal/Treatment Plan - Goal/Treatment Plan Need for Continued Stay: Severe depression anxiety, Discharge may exacerbated symptoms Progress Toward Problem(s) and Goals/Treatment Plan: continue with zyprexa 10mg qhs follow up on urine culture continue with CBT , supportive and group therapy social worker arranging for discharge plan
--- NOTE | 2017-04-03 12:55 | CP.PCM.CON ---
History of Present Illness - History of Present Illness History of Present Illness: Medical consult note 36 yo female admitted for suicidal ideation and depression. Patient reports she wanted to take her life after cheating on her boyfriend and had a plan to jump in front of the train. Denies SOB, chest pain, weakness, nausea, or vomiting. Reports she has been fighting a cold. PMH includes hypercholesteremia, anxiety, bipolar disorder, depression, and schizophrenia. PMD: Dr. Butler Specialist: [place] [facility] [place] [facility] [place]: 03/26/17 PMHx: hypercholesteremia, anxiety, bipolar disorder, depression, and schizophrenia SurHx: x 3, BTL FMHx: father dies of PR in his 60's, mother at 37 from homicide, siblings are healthy SocHx: current smoker 11 pack years, occasional EToH, denies drugs Medications: Zyprexa 10 mg PO QD Allergies: ASA-GI discomfort Review of Systems - Review of Systems All systems: reviewed and no additional remarkable complaints except (for what is mentioned in the HPI) - Constitutional Constitutional: Fever. absent: Headache, Weakness - EENT Eyes: absent: Change in Vision Ears: absent: Ear Discharge, Ear Pain Nose/Mouth/Throat: Nasal Congestion - Cardiovascular Cardiovascular: absent: Chest Pain, Dyspnea - Respiratory Respiratory: absent: Cough, Hemoptysis - Gastrointestinal Gastrointestinal: absent: Abdominal Pain, Nausea, Vomiting - Genitourinary Genitourinary: absent: Difficulty Urinating, Dysuria - Reproductive: Female Reproductive:Female: Normal Menses - Musculoskeletal Musculoskeletal: absent: Arthralgias, Back Pain - Integumentary Integumentary: absent: Bleeding Lesions - Neurological Neurological: absent: Dizziness - Psychiatric Psychiatric: Anxiety. absent: Suicidal Ideation - Endocrine Endocrine: absent: Polydipsia, Polyuria - Hematologic/Lymphatic Hematologic: absent: Easy Bleeding, Easy Bruising Past Patient History - Infectious Disease Hx of Infectious Diseases: None - Tetanus Immunizations Tetanus Immunization: Unknown - Past Medical History & Family History Past Medical History?: Yes - Past Social History Smoking Status: Light Smoker < 10 Cigarettes Daily - CARDIAC Hx Cardiac Disorders: Yes - PULMONARY Hx Tuberculosis: No - NEUROLOGICAL Hx Seizures: No - HEENT Hx HEENT Problems: No - RENAL Hx Chronic Kidney Disease: No - ENDOCRINE/METABOLIC Hx Endocrine Disorders: No - HEMATOLOGICAL/ONCOLOGICAL Hx Human Immunodeficiency Virus (HIV): No - INTEGUMENTARY Hx Dermatological Problems: No - MUSCULOSKELETAL/RHEUMATOLOGICAL Hx Musculoskeletal Disorders: No - GASTROINTESTINAL Hx Gastrointestinal Disorders: No - GENITOURINARY/GYNECOLOGICAL Hx Sexually Transmitted Disorders: No - PSYCHIATRIC Hx Substance Use: No - SURGICAL HISTORY Hx Section: Yes (x3) - ANESTHESIA Hx Anesthesia: Yes Hx Anesthesia Reactions: No Meds Allergies/Adverse Reactions: Allergies Allergy/AdvReac Type Severity Reaction Status Date / Time aspirin AdvReac NAUSEA Verified 09/14/16 19:39 - Medications Medications: Current Medications Acetaminophen (Tylenol 325mg Tab) 650 mg PO Q4 PRN PRN Reason: Pain, moderate (4-7) Last Admin: 04/03/17 07:05 Dose: 650 mg Al Hydrox/Mg Hydrox/Simethicone (Maalox Plus 30 Ml) 30 ml PO Q4 PRN PRN Reason: Dyspepsia Ciprofloxacin (Cipro) 500 mg PO Q12 XAVIER PRN Reason: Protocol Last Admin: 04/03/17 09:42 Dose: 500 mg Diphenhydramine HCl (Benadryl) 50 mg IM Q6 PRN PRN Reason: Extrapyramidal S/S Unable PO Diphenhydramine HCl (Benadryl) 50 mg PO Q6 PRN PRN Reason: Extrapyramidal Symptoms Guaifenesin/Dextromethorphan (Robitussin Dm) 10 ml PO TID PRN PRN Reason: Cough Last Admin: 04/01/17 16:52 Dose: 10 ml Haloperidol (Haldol) 5 mg PO Q4 PRN PRN Reason: Agitation Haloperidol Lactate (Haldol) 5 mg IM Q4 PRN PRN Reason: Agitation, Unable to Take PO Lorazepam (Ativan) 2 mg IM Q4 PRN PRN Reason: Anxiety/Agitation,Unable PO Lorazepam (Ativan) 2 mg PO Q4 PRN PRN Reason: Anxiety/Agitation Last Admin: 04/02/17 15:18 Dose: 2 mg Magnesium Hydroxide (Milk Of Magnesia) 30 ml PO HS PRN PRN Reason: Constipation Nicotine (Nicoderm Cq) 1 patch TD DAILY [facility] Last Admin: 04/03/17 09:43 Dose: Not Given Olanzapine (Zyprexa) 10 mg PO HS [facility] Last Admin: 04/02/17 21:47 Dose: 10 mg Physical Exam - Constitutional Appears: No Acute Distress - Head Exam Head Exam: ATRAUMATIC, NORMOCEPHALIC - Eye Exam Eye Exam: EOMI - ENT Exam ENT Exam: Mucous Membranes Moist - Neck Exam Neck exam: Positive for: Full Rom - Respiratory Exam Respiratory Exam: Clear to Auscultation Bilateral, NORMAL BREATHING PATTERN - Cardiovascular Exam Cardiovascular Exam: REGULAR RHYTHM, +S1, +S2 - GI/Abdominal Exam GI & Abdominal Exam: Normal Bowel Sounds, Soft. absent: Tenderness - Extremities Exam Extremities exam: Positive for: full ROM. Negative for: calf tenderness, pedal edema - Back Exam Back exam: absent: CVA tenderness (L), CVA tenderness (R) - Neurological Exam Neurological exam: Alert, CN II-XII Intact, Oriented x3 - Psychiatric Exam Psychiatric exam: Depressed, Flat Affect Additional comments: no suicidal or homicidal ideation - Skin Skin Exam: Dry, Normal Color, Warm Results - Vital Signs Recent Vital Signs: Last Vital Signs Temp 102 F H 04/03/17 07:05 Pulse 91 H 04/02/17 09:00 Resp 20 04/02/17 09:00 BP 102/60 04/02/17 09:00 Pulse Ox 96 03/30/17 12:37 - Labs Result Diagrams: 03/30/17 07:31 03/30/17 07:31 Assessment & Plan - Assessment and Plan (Free Text) Assessment: 36 yo female admitted for depression and suicidal ideation. Patient with intermittent fever likely secondary to viral URI. -f/u blood cx and sputum cx , urine culture GBS + 10K-50K - tylenol PRN -per psych team Zyprexa 10 mg PO QD -regular diet -adequate fluid intake -f/u influenza and rapid strep tests - Date & Time Date: 04/03/17 Time: 09:35
[2017-04-04 07:48] LABS: BASO # 0.1 K/uL (0.0-0.2); BASO % 0.9 % (0.0-2.0); EOS % 0.3 % (0.0-4.0); HEMOGLOBIN 12.7 g/dL (12.0-16.0); LYMPH # 1.5 K/uL (1.0-4.3); LYMPH % 19.2 % (20.0-40.0); MEAN CELL VOLUME 94.2 fl (81.0-99.0); MEAN CORPUSCULAR HEMOGLOBIN 31.2 pg (27.0-31.0); MEAN CORPUSCULAR HGB CONC 33.1 g/dL (33.0-37.0); MEAN PLATELET VOLUME 9.5 fl (7.2-11.7); MONO # 0.7 K/uL (0.0-0.8); MONO % 9.5 % (0.0-10.0); NEUT # 5.4 K/uL (1.8-7.0); NEUT % 70.1 % (50.0-75.0); NRBC % 0.1 % (0.0-0.0); RBC 4.08 Mil/uL (3.80-5.20); RED CELL DISTRIBUTION WIDTH 13.6 % (11.5-14.5); WHITE BLOOD COUNT 7.8 K/uL (4.8-10.8)
[2017-04-04 08:38] LABS: ALB/GLOB RATIO 1.1 (1.0-2.1); ALBUMIN 3.8 g/dL (3.5-5.0); ALT/SGPT 32 U/L (9-52); AST/SGOT 27 U/L (14-36); BLOOD UREA NITROGEN 11 mg/dl (7-17); GFR AFRICAN-AMERICAN > 60; GFR NON-AFRICAN AMERICAN > 60
--- NOTE | 2017-04-04 09:11 | CON ---
DATE: CHIEF COMPLAINT: The patient was admitted to psych unit for psychiatric issues. Medical consult was called for management of medical problems. anxious and being depressed . The patient denies any specific medical complaint. REVIEW OF SYSTEMS: Negative for headache, dizziness, syncope, loss of consciousness, chest pain, shortness of breath, nausea, vomiting, diarrhea, constipation, any new joint or extremity pain. Review of systems of all other organ system is unremarkable. PAST MEDICAL HISTORY: Significant for elevated cholesterol, anxiety, and psychiatric issues. PAST SURGICAL HISTORY: Unremarkable. PERSONAL HISTORY: The patient is currently nonsmoker, nondrinker, no substance abuse. MEDICATIONS: The patient is on multiple medications, which is as per reconciliation sheet, which was reviewed and ordered. ALLERGIES: THE PATIENT IS NOT ALLERGIC TO ANY MEDICATIONS. FAMILY HISTORY: Noncontributory. PHYSICAL EXAMINATION: GENERAL: Well-built, well-nourished, young female, in no acute distress. VITAL SIGNS: Temperature afebrile, pulse 80, respirations 18, blood pressure 130/76. HEENT: Pupils are reacting to light. No JVD. No thyromegaly. . HEART: S1 and S2, normal and regular. LUNGS: Good bilateral air exchange. ABDOMEN: Soft, nontender. No organomegaly noted. Bowel sounds are present and normal. EXTREMITIES: No edema. No calf swelling. No tenderness. No acute ischemia. CENTRAL NERVOUS SYSTEM: The patient is alert, awake, oriented x3. There is no sign of any acute gross focal motor or sensory neurological deficit. DIAGNOSTIC DATA: Available diagnostic data reviewed. CBC and CMP are acceptable. RPR is negative. Thyroid functions are normal. Cholesterol was slightly elevated. The patient does not need any pharmacological management. The patient advised about dietary intake, exercise and weight loss. CONSULTING IMPRESSION: psychiatric disorder, medical problems are fairly controlled. PLAN: As ordered. Case and plan discussed with patient. Thanks for this consult. We will follow the patient with you. Zi Butler MD
--- NOTE | 2017-04-04 13:38 | PCM.PYCHPN ---
Psychiatric Progress Note - Psychiatric Progress Note Patient seen today, length of contact: pt seen and evaluated Patient Chief Complaint: I am feeling better today Problems Identified/Issues Discussed: pt seen in bed, calmer , cooperative , reported better mood, brighter affect thought process more clear , pt denied any current suicidal or homicidal ideations, denied perceptual disturbances follow up on sputum, blood cultures, results negative, will follow up with family practice for medical clearence for discharge Medical Problems: pt has history of multiple inpatient hospitalizations, due to paranoid delusions and disorganized behavior DSM 5 Symptoms Update: bipolar disorder depressed Medication Change: No Medical Record Reviewed: Yes Mental Status Examination - Cognitive Function Orientation: Person, Place Attention: WNL Concentration: WNL Association: WNL Fund of Knowledge: Poor Decription of patient's judgement and insights: partial insight and poor judgment - Mood Mood: Anxious, Neutral - Affect Affect: Constricted, Depressed - Speech Speech: Appropriate - Formal Thought Process Formal Thought Process: Circumstantial Psychotic Thoughts and Behaviors: pt continues to be guarded paranoid, denied command hallucinations - Suicidal Ideation Suicidal Ideation: No - Homicidal Ideation Homicidal Ideation: No Goal/Treatment Plan - Goal/Treatment Plan Need for Continued Stay: Severe depression anxiety, Discharge may exacerbated symptoms Progress Toward Problem(s) and Goals/Treatment Plan: continue with zyprexa 10mg qhs follow up on culture results with family practice for medical clearence continue with CBT , supportive and group therapy rn social work arranging for discharge plan Estimated Date of D/C: 04/05/17
[2017-04-04] MEDS: guaiFENesin DM 200 mg-20 mg/10 ml UD PO PRN (14:20)
--- NOTE | 2017-04-04 15:08 | CP.PCM.PN ---
Subjective - Date & Time of Evaluation Date of Evaluation: 04/04/17 Time of Evaluation: 08:00 - Subjective Subjective: Patient seen and examined at bedside with attending- Dr. Butler. Denies chest pain , SOB, cough or dysuria. Reports intermittent chills and bodyaches. Tolerating PO diet and ambulating without difficulty. Objective - Vital Signs/Intake and Output Vital Signs (last 24 hours): Temp Pulse Resp BP Pulse Ox 100.9 F H 85 18 108/68 96 04/04/17 14:21 04/04/17 09:00 04/04/17 09:00 04/04/17 09:00 03/30/17 12:37 - Medications Medications: Current Medications Acetaminophen (Tylenol 325mg Tab) 650 mg PO Q4 PRN PRN Reason: Pain, moderate (4-7) Last Admin: 04/04/17 14:21 Dose: 650 mg Al Hydrox/Mg Hydrox/Simethicone (Maalox Plus 30 Ml) 30 ml PO Q4 PRN PRN Reason: Dyspepsia Ciprofloxacin (Cipro) 500 mg PO Q12 XAVIER PRN Reason: Protocol Last Admin: 04/04/17 10:52 Dose: 500 mg Diphenhydramine HCl (Benadryl) 50 mg IM Q6 PRN PRN Reason: Extrapyramidal S/S Unable PO Diphenhydramine HCl (Benadryl) 50 mg PO Q6 PRN PRN Reason: Extrapyramidal Symptoms Guaifenesin/Dextromethorphan (Robitussin Dm) 10 ml PO TID PRN PRN Reason: Cough Last Admin: 04/04/17 14:20 Dose: 10 ml Haloperidol (Haldol) 5 mg PO Q4 PRN PRN Reason: Agitation Haloperidol Lactate (Haldol) 5 mg IM Q4 PRN PRN Reason: Agitation, Unable to Take PO Lorazepam (Ativan) 2 mg IM Q4 PRN PRN Reason: Anxiety/Agitation,Unable PO Lorazepam (Ativan) 2 mg PO Q4 PRN PRN Reason: Anxiety/Agitation Last Admin: 04/02/17 15:18 Dose: 2 mg Magnesium Hydroxide (Milk Of Magnesia) 30 ml PO HS PRN PRN Reason: Constipation Nicotine (Nicoderm Cq) 1 patch TD DAILY XAVIER Last Admin: 04/04/17 10:52 Dose: 1 patch Olanzapine (Zyprexa) 10 mg PO HS [facility] Last Admin: 04/03/17 21:31 Dose: 10 mg - Labs Labs: 04/04/17 07:43 04/04/17 07:43 - Constitutional Appears: No Acute Distress - Head Exam Head Exam: ATRAUMATIC, NORMOCEPHALIC - Eye Exam Eye Exam: EOMI - ENT Exam ENT Exam: Mucous Membranes Moist - Neck Exam Neck Exam: Full ROM - Respiratory Exam Respiratory Exam: Clear to Ausculation Bilateral, NORMAL BREATHING PATTERN. absent: Rales, Rhonchi - Cardiovascular Exam Cardiovascular Exam: REGULAR RHYTHM, +S1, +S2 - GI/Abdominal Exam GI & Abdominal Exam: Soft, Normal Bowel Sounds. absent: Tenderness - Extremities Exam Extremities Exam: Full ROM. absent: Calf Tenderness, Pedal Edema - Back Exam Back Exam: Full ROM - Neurological Exam Neurological Exam: Alert, Awake, CN II-XII Intact, Oriented x3 - Psychiatric Exam Psychiatric exam: Depressed, Flat Affect - Skin Skin Exam: Dry, Normal Color, Warm Assessment and Plan - Assessment and Plan (Free Text) Assessment: 36 yo female admitted for depression and suicidal ideation. Patient with intermittent fever likely secondary to viral URI. -blood cx negative x 48 hours , urine culture GBS + 10K-50K, influenza negative - tylenol PRN -per psych team Zyprexa 10 mg PO QD -regular diet -adequate fluid intake -f/u sputum cx and rapid strep test
--- NOTE | 2017-04-05 09:10 | CP.PCM.PN ---
Subjective - Date & Time of Evaluation Date of Evaluation: 04/05/17 Time of Evaluation: 09:00 - Subjective Subjective: Patient seen and examined at bedside with attending-Dr. Butler. Reports her throat remains sore, tolerating PO diet. Denies chest pain, SOB, weakness or dizziness. Objective - Vital Signs/Intake and Output Vital Signs (last 24 hours): Temp Pulse Resp BP Pulse Ox 100 F H 95 H 18 121/72 96 04/04/17 21:46 04/04/17 17:00 04/04/17 17:00 04/04/17 17:00 03/30/17 12:37 - Medications Medications: Current Medications Acetaminophen (Tylenol 325mg Tab) 650 mg PO Q4 PRN PRN Reason: Pain, moderate (4-7) Last Admin: 04/04/17 21:52 Dose: 650 mg Al Hydrox/Mg Hydrox/Simethicone (Maalox Plus 30 Ml) 30 ml PO Q4 PRN PRN Reason: Dyspepsia Ciprofloxacin (Cipro) 500 mg PO Q12 XAVIER PRN Reason: Protocol Last Admin: 04/04/17 21:21 Dose: 500 mg Diphenhydramine HCl (Benadryl) 50 mg IM Q6 PRN PRN Reason: Extrapyramidal S/S Unable PO Diphenhydramine HCl (Benadryl) 50 mg PO Q6 PRN PRN Reason: Extrapyramidal Symptoms Guaifenesin/Dextromethorphan (Robitussin Dm) 10 ml PO TID PRN PRN Reason: Cough Last Admin: 04/04/17 14:20 Dose: 10 ml Haloperidol (Haldol) 5 mg PO Q4 PRN PRN Reason: Agitation Haloperidol Lactate (Haldol) 5 mg IM Q4 PRN PRN Reason: Agitation, Unable to Take PO Lorazepam (Ativan) 2 mg IM Q4 PRN PRN Reason: Anxiety/Agitation,Unable PO Lorazepam (Ativan) 2 mg PO Q4 PRN PRN Reason: Anxiety/Agitation Last Admin: 04/02/17 15:18 Dose: 2 mg Magnesium Hydroxide (Milk Of Magnesia) 30 ml PO HS PRN PRN Reason: Constipation Nicotine (Nicoderm Cq) 1 patch TD DAILY [facility] Last Admin: 04/04/17 10:52 Dose: 1 patch Olanzapine (Zyprexa) 10 mg PO HS [facility] Last Admin: 04/04/17 21:21 Dose: 10 mg - Labs Labs: 04/04/17 07:43 04/04/17 07:43 - Constitutional Appears: No Acute Distress - Head Exam Head Exam: ATRAUMATIC, NORMOCEPHALIC - Eye Exam Eye Exam: EOMI - ENT Exam ENT Exam: Mucous Membranes Moist Additional comments: oral thrush - Neck Exam Neck Exam: Full ROM - Respiratory Exam Respiratory Exam: Clear to Ausculation Bilateral, NORMAL BREATHING PATTERN - Cardiovascular Exam Cardiovascular Exam: REGULAR RHYTHM, +S1, +S2 - GI/Abdominal Exam GI & Abdominal Exam: Soft, Normal Bowel Sounds - Extremities Exam Extremities Exam: Full ROM. absent: Pedal Edema - Neurological Exam Neurological Exam: Alert, Awake, CN II-XII Intact, Normal Gait - Psychiatric Exam Psychiatric exam: Flat Affect - Skin Skin Exam: Normal Color, Warm Assessment and Plan - Assessment and Plan (Free Text) Assessment: 36 yo female admitted for depression and suicidal ideation. Patient with intermittent fever likely secondary to viral URI. -Augmentin 875mg PO Q12, Fluconazole 200mg PO -blood cx negative x 48 hours , urine culture GBS + 10K-50K, influenza negative - tylenol PRN -per psych team Zyprexa 10 mg PO QD -regular diet -adequate fluid intake -sputum cx negative -f/u rapid strep test
[2017-04-05] MEDS: Amoxicillin-Clav 875-125 mg Tab PO SCH ×2 (10:53→21:01)
--- NOTE | 2017-04-05 12:17 | PCM.PYCHPN ---
Psychiatric Progress Note - Psychiatric Progress Note Patient seen today, length of contact: pt seen and evaluated Patient Chief Complaint: I have a sore throat Problems Identified/Issues Discussed: pt seen in bed, calmer , cooperative , reported feeling down due to her medical condition, pt presenting with sore throat and positive urine culture, started on antibiotics by family practice thought process more clear , pt denied any current suicidal or homicidal ideations, denied perceptual disturbances Medical Problems: pt has history of multiple inpatient hospitalizations, due to paranoid delusions and disorganized behavior DSM 5 Symptoms Update: bipolar disorder Medication Change: No Medical Record Reviewed: Yes Mental Status Examination - Cognitive Function Orientation: Person, Place Attention: WNL Concentration: WNL Association: WNL Fund of Knowledge: Poor Decription of patient's judgement and insights: partial insight and poor judgment - Mood Mood: Anxious, Neutral - Affect Affect: Constricted, Depressed - Speech Speech: Appropriate - Formal Thought Process Formal Thought Process: Circumstantial Psychotic Thoughts and Behaviors: pt continues to be guarded paranoid, denied command hallucinations - Suicidal Ideation Suicidal Ideation: No - Homicidal Ideation Homicidal Ideation: No Goal/Treatment Plan - Goal/Treatment Plan Need for Continued Stay: Severe depression anxiety, Discharge may exacerbated symptoms Progress Toward Problem(s) and Goals/Treatment Plan: continue with zyprexa 10mg qhs follow up with family practice for medical clearence continue with CBT , supportive and group therapy adoption social worker arranging for discharge plan Estimated Date of D/C: 04/05/17
[2017-04-06 09:33] VITALS: BP 111/68; PULSE 79; RESP 18; TEMP 99.7
[2017-04-06] MEDS: Amoxicillin-Clav 875-125 mg Tab PO SCH (10:03)
--- NOTE | 2017-04-06 10:05 | CP.PCM.PN ---
Subjective - Date & Time of Evaluation Date of Evaluation: 04/06/17 Time of Evaluation: 10:00 - Subjective Subjective: Patient seen and examined at beside with attending-Dr. Steen. Patient reports she feels better. Denies fever, chills, SOB, weakness or dizziness. Objective - Vital Signs/Intake and Output Vital Signs (last 24 hours): Temp Pulse Resp BP Pulse Ox 99.7 F H 79 18 111/68 96 04/06/17 09:00 04/06/17 09:00 04/06/17 09:00 04/06/17 09:00 03/30/17 12:37 - Medications Medications: Current Medications Acetaminophen (Tylenol 325mg Tab) 650 mg PO Q4 PRN PRN Reason: Pain, moderate (4-7) Last Admin: 04/05/17 20:23 Dose: 650 mg Al Hydrox/Mg Hydrox/Simethicone (Maalox Plus 30 Ml) 30 ml PO Q4 PRN PRN Reason: Dyspepsia Amoxicillin/Clavulanate Potassium (Augmentin 875 Mg-125 Mg Tab) 1 tab PO Q12 XAVIER PRN Reason: Protocol Last Admin: 04/05/17 21:01 Dose: 1 tab Diphenhydramine HCl (Benadryl) 50 mg IM Q6 PRN PRN Reason: Extrapyramidal S/S Unable PO Diphenhydramine HCl (Benadryl) 50 mg PO Q6 PRN PRN Reason: Extrapyramidal Symptoms Fluconazole (Diflucan) 200 mg PO DAILY XAVIER PRN Reason: Protocol Last Admin: 04/05/17 10:53 Dose: 200 mg Guaifenesin/Dextromethorphan (Robitussin Dm) 10 ml PO TID PRN PRN Reason: Cough Last Admin: 04/04/17 14:20 Dose: 10 ml Haloperidol (Haldol) 5 mg PO Q4 PRN PRN Reason: Agitation Haloperidol Lactate (Haldol) 5 mg IM Q4 PRN PRN Reason: Agitation, Unable to Take PO Magnesium Hydroxide (Milk Of Magnesia) 30 ml PO HS PRN PRN Reason: Constipation Nicotine (Nicoderm Cq) 1 patch TD DAILY [facility] Last Admin: 04/05/17 09:17 Dose: Not Given Olanzapine (Zyprexa) 10 mg PO HS [facility] Last Admin: 04/05/17 21:01 Dose: 10 mg - Labs Labs: 04/04/17 07:43 04/04/17 07:43 - Constitutional Appears: No Acute Distress - Head Exam Head Exam: ATRAUMATIC, NORMOCEPHALIC - Eye Exam Eye Exam: EOMI - ENT Exam ENT Exam: Mucous Membranes Moist - Neck Exam Neck Exam: Full ROM - Respiratory Exam Respiratory Exam: Clear to Ausculation Bilateral, NORMAL BREATHING PATTERN - Cardiovascular Exam Cardiovascular Exam: REGULAR RHYTHM, +S1, +S2 - GI/Abdominal Exam GI & Abdominal Exam: Soft, Normal Bowel Sounds - Extremities Exam Extremities Exam: Full ROM. absent: Calf Tenderness, Pedal Edema - Neurological Exam Neurological Exam: Alert, Awake, CN II-XII Intact, Oriented x3 - Psychiatric Exam Psychiatric exam: Normal Affect, Normal Mood - Skin Skin Exam: Dry, Normal Color, Warm Assessment and Plan - Assessment and Plan (Free Text) Assessment: 36 yo female admitted for depression and suicidal ideation. Patients' intermittent fever has resolved, she is medically stable for discharge. -medically stable for discharge -Rx given to complete Augmentin 875mg PO Q12 x 4 days (had 1 day tx here) -follow up with PMD as outpatient within 1 week -take rest of your medications as prescribed -adequate PO intake
--- NOTE | 2017-04-06 10:50 | PCM.PYCHDC ---
Mental Status Examination - Mental Status Examination Orientation: Person, Place, Situation Memory: Intact Mood: Neutral Affect: Broad Speech: Appropriate Attention: WNL Concentration: WNL Association: WNL Fund of Knowledge: WNL Formal Thought Process: No Impairment Description of patient's judgement and insight: partial insight and poor judgment Psychotic Thoughts and Behaviors: pt denied any psychotic symptoms, non elicited Suicidal Ideation: No Current Homicidal Ideation?: No Discharge Summary - Discharge Note Reason for Hospitalization: pt with previous psychiatric diagnosis of schizoaffective disorder, multiple inpatient hospitalizations, reportedly non compliant with medications, pt became increasingly depressed, also has been having financial difficulties and housing problems, pt started experiencing suicidal ideations with the plan to jump off the bridge, pt presented to ER seeking help pt reported depressed mood , hopelessness , helplessness, paranoid and persecutory delusions feeling that people are after her, decreased sleep denied command hallucinations denied suicidal or homicidal ideations on the unit no reported substance use Consultations:: List each consultation separately and include: 1. Reason for request. 2. Findings. 3. Follow-up Summary of Hospital Course include:: 1. Description of specific treatment plan utilized for patients during their course of treatmen. 2. Summarize the time- course for resolution of acute symptoms and/or regressed behaviors. 3. Describe issues identified and worked on during hospitalization. 4. Describe medication utilized. 5. Describe medical problems identified and treated. 6. Reassessment of suicide risk Summary of Hospital Course: pt on admission was started on [id number]. it was uptitrated to 10mg pt showed gradual clearing of thought process , no reported side effect of medications pt presented with fever, family practice consulted and pt was started on antibiotics pt attended groups, was cooperative with treatment on discharge,pt mental status was stable, denied suicidal or homicidal ideations , denied perceptual disturbances, - Diagnosis (1) Depression Current Visit: Yes Status: Acute - Final Diagnosis (DSM 5) Condition upon Discharge: FAIR Disposition: HOME/ ROUTINE Follow-up Treatment Plan: continue with zyprexa 10mg qhs follow up with family practice for medical clearence continue with CBT , supportive and group therapy social insurance specialist arranging for discharge plan Prescriptions/Medication Reconciliation: Amoxicillin/Clavulanate [Augmentin 875 MG-125 MG Tab] 1 tab PO Q12 7 Days #14 tab Fluconazole [Diflucan] 200 mg PO DAILY 7 Days #7 tab OLANZapine [Zyprexa] 10 mg PO HS 30 Days #30 tab - Antipsychotic Medications Pt discharged on 2 or more routine antipsychotic medications: No
== END 2017-04-06 11:32 | disposition home or self-care (01) | DRG 430 ==
LOC: H.ER 06:32 → H.ERHOLD 09:56 → H.PSYCH 12:52
PROVIDERS: ADMIT Psychiatry & Neurology Psychiatry; ATTEND Psychiatry & Neurology Psychiatry
PROC: GZHZZZZ Group Psychotherapy (ICD-10-PCS; principal; 2017-03-30)
PROC: GZ58ZZZ Individual Psychotherapy, Cognitive-Behavioral (ICD-10-PCS; 2017-03-30)
DX: F25.0 Schizoaffective disorder, bipolar type (principal); F22 Delusional disorders; R45.851 Suicidal ideations; Z91.14 Patient's other noncompliance with medication regimen; J06.9 Acute upper respiratory infection, unspecified; F41.9 Anxiety disorder, unspecified; E78.00 Pure hypercholesterolemia, unspecified; F17.210 Nicotine dependence, cigarettes, uncomplicated; Z22.330 Carrier of Group B streptococcus; Z59.9 Problem related to housing and economic circumstances, unspecified; Z88.6 Allergy status to analgesic agent

== ENCOUNTER 2017-04-25 12:06 | Emergency (ER) | payer MEDICAID ==
[2017-04-25 12:06] VITALS: BMI 23.4
[2017-04-25 12:23] VITALS: BP 118/73; PULSE 90; RESP 16; TEMP 98.5; O2SAT 100
--- NOTE | 2017-04-25 13:37 | ED PDOC ---
HPI: Psych/Substance Abuse Time Seen by Provider: 04/25/17 13:27 Chief Complaint (Nursing): Med Refill Chief Complaint (Provider): Medication Refill History Per: Patient History/Exam Limitations: no limitations Onset/Duration Of Symptoms: Days (x1 week) Suicide/Self Injury Attempted (Context): None Additional Complaint(s): 36 year old female presents to ED for a prescription refill of Zyprexa 10mg daily. Patient reports she has a history of paranoid schizophrenia and bipolar disorder. Patient states that she has not taken Zyprexa 10mg QD for the last week and is afraid of becoming paranoid/having a schizophrenic episode. Patient has no current complaints at this time. (-) hallucinations, suicidal ideation, or homicidal ideation. Patient also notes that she is currently homeless. LMP: x1 month ago PCP: Dr. Butler Past Medical History Reviewed: Historical Data, Nursing Documentation, Vital Signs Vital Signs: Last Vital Signs Temp 98.5 F 04/25/17 12:20 Pulse 90 04/25/17 12:20 Resp 16 04/25/17 12:20 BP 118/73 04/25/17 12:20 Pulse Ox 100 04/25/17 12:20 - Medical History PMH: Anxiety, Bipolar Disorder, Depression, Hypercholesterolemia, Schizophrenia Denies: Diabetes, Hepatitis, HIV, HTN, Chronic Kidney Disease, Seizures, Sexually Transmitted Disease - Surgical History Surgical History: (x3) - Family History Family History: States: Unknown Family Hx - Living Arrangements Living Arrangements: Other (Non-domiciled) - Social History Current smoker - smoking cessation education provided: Yes Ex-Smoker (has not smoked in the last 12 months): No Alcohol: > 2 Drinks/Day Drugs: Denies - Home Medications Home Medications: Ambulatory Orders Medication Instructions Recorded Amoxicillin/Clavulanate [Augmentin 1 tab PO Q12 7 Days #14 tab 04/06/17 875 MG-125 MG Tab] Fluconazole [Diflucan] 200 mg PO DAILY 7 Days #7 tab 04/06/17 OLANZapine [Zyprexa] 10 mg PO HS 30 Days #30 tab 04/06/17 Sodium Chloride for Inhalation 4 ml IH ONCE PRN vial.neb 04/06/17 [Sodium Chloride 3% for Inhalation] OLANZapine [ZyPREXA] 10 mg PO DAILY #7 tab 02/14/18 - Allergies Allergies/Adverse Reactions: Allergies Allergy/AdvReac Type Severity Reaction Status Date / Time aspirin AdvReac NAUSEA Verified 04/25/17 12:20 Review of Systems ROS Statement: Except As Marked, All Systems Reviewed And Found Negative Psych: Negative for: Psychosis, Suicidal ideation, Other ((-) homicidal ideation ) Physical Exam - Reviewed Nursing Documentation Reviewed: Yes Vital Signs Reviewed: Yes - Physical Exam Appears: Positive for: Well, Non-toxic, No Acute Distress Head Exam: Positive for: NORMOCEPHALIC Skin: Positive for: Normal Color, Warm, Dry Eye Exam: Positive for: Normal appearance Cardiovascular/Chest: Positive for: Regular Rate, Rhythm. Negative for: Murmur Respiratory: Positive for: Normal Breath Sounds. Negative for: Respiratory Distress Gastrointestinal/Abdominal: Positive for: Normal Exam, Soft. Negative for: Tenderness Neurologic/Psych: Positive for: Alert, Oriented, Mood/Affect (appropriate) - ECG O2 Sat by Pulse Oximetry: 100 (RA) Pulse Ox Interpretation: Normal Medical Decision Making Medical Decision Makin Initial impression: medication refill 1356 Patient is stable for discharge home. Will prescribe 1 week supply of Zyprexa 10mg PO QD. Patient instructed to follow up with psychiatrist/PMD within the week. Return to ED with any new or worsening symptoms. Scribe Attestation: Documented by Alexandria Cian, acting as a scribe for Rosalind Otero PA-C. Provider Scribe Attestation: All medical record entries made by the Scribe were at my direction and personally dictated by me. I have reviewed the chart and agree that the record accurately reflects my personal performance of the history, physical exam, medical decision making, and the department course for this patient. I have also personally directed, reviewed, and agree with the discharge instructions and disposition. Disposition - Clinical Impression Clinical Impression: Schizophrenia, Medication refill - Patient ED Disposition Is Patient to be Admitted: No Counseled Patient/Family Regarding: Need For Followup, Rx Given - Disposition Disposition: Routine/Home Disposition Time: 13:57 Condition: STABLE Prescriptions: OLANZapine [ZyPREXA] 10 mg PO DAILY #7 tab Instructions: Schizophrenia (ED), Medicine Refill (ED) Forms: [employer] (Chinese) Print Language: ROMANIAN
== END 2017-04-25 15:12 | disposition home or self-care (01) ==
LOC: H.ER 12:06
DX: Z76.0 Encounter for issue of repeat prescription (principal); F20.0 Paranoid schizophrenia; F31.9 Bipolar disorder, unspecified; E78.00 Pure hypercholesterolemia, unspecified

== ENCOUNTER 2017-04-27 02:14 | Emergency (ER) | payer MEDICAID ==
[2017-04-27 02:15] VITALS: BMI 23.4
[2017-04-27 02:28] VITALS: RESP 16; TEMP 97.9
[2017-04-27 03:24] LABS: BASO # 0.1 K/uL (0.0-0.2); BASO % 1.3 % (0.0-2.0); EOS # 0.1 K/uL (0.0-0.7); HEMOGLOBIN 12.8 g/dL (12.0-16.0); MEAN CELL VOLUME 93.6 fl (81.0-99.0); MEAN CORPUSCULAR HGB CONC 33.1 g/dL (33.0-37.0); MEAN PLATELET VOLUME 9.2 fl (7.2-11.7); MONO # 0.5 K/uL (0.0-0.8); NEUT # 7.5 K/uL (1.8-7.0); NEUT % 66.7 % (50.0-75.0); RBC 4.13 Mil/uL (3.80-5.20); RED CELL DISTRIBUTION WIDTH 14.5 % (11.5-14.5); WHITE BLOOD COUNT 11.3 K/uL (4.8-10.8)
[2017-04-27 03:34] LABS: ALB/GLOB RATIO 1.3 (1.0-2.1); ALBUMIN 4.2 g/dL (3.5-5.0); ALT/SGPT 25 U/L (9-52); AST/SGOT 19 U/L (14-36); BLOOD UREA NITROGEN 17 mg/dl (7-17); CALCIUM 8.8 mg/dL (8.4-10.2); GFR AFRICAN-AMERICAN > 60; GFR NON-AFRICAN AMERICAN > 60
[2017-04-27] MEDS ORDERED: Potassium Chloride 10 mEq ER Tab PO ONE ×2 (04:05→04:10)
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
[2017-04-27 05:32] VITALS: BP 101/53; PULSE 92; O2SAT 96
== END 2017-04-27 05:35 | disposition home or self-care (01) ==
LOC: H.ER 02:14
DX: F32.9 Major depressive disorder, single episode, unspecified (principal); E78.00 Pure hypercholesterolemia, unspecified

== ENCOUNTER 2017-04-27 17:07 | Emergency (ER) | payer MEDICAID ==
[2017-04-27 17:07] VITALS: BMI 23.4
== END 2017-04-27 17:55 | disposition left against medical advice (07) ==
LOC: H.ER 17:07
DX: Z02.89 Encounter for other administrative examinations (principal); Z00.00 Encounter for general adult medical examination without abnormal findings

== ENCOUNTER 2017-08-15 09:05 | Inpatient (IN) | payer MEDICAID ==
[2017-08-15 09:15] VITALS: BMI 22.4
[2017-08-15 10:10] LABS: BASO # 0.1 K/uL (0.0-0.2); BASO % 0.6 % (0.0-2.0); EOS # 0.3 K/uL (0.0-0.7); EOS % 2.4 % (0.0-4.0); HEMOGLOBIN 13.5 g/dL (12.0-16.0); LYMPH % 21.6 % (20.0-40.0); MEAN CELL VOLUME 94.3 fl (81.0-99.0); MEAN CORPUSCULAR HEMOGLOBIN 31.7 pg (27.0-31.0); MEAN CORPUSCULAR HGB CONC 33.6 g/dL (33.0-37.0); MEAN PLATELET VOLUME 9.8 fl (7.2-11.7); MONO # 0.5 K/uL (0.0-0.8); NEUT # 9.8 K/uL (1.8-7.0); NEUT % 71.4 % (50.0-75.0); NRBC % 0.2 % (0.0-0.0); RBC 4.25 Mil/uL (3.80-5.20); RED CELL DISTRIBUTION WIDTH 12.8 % (11.5-14.5); WHITE BLOOD COUNT 13.7 K/uL (4.8-10.8)
[2017-08-15 10:18] LABS: BLOOD UREA NITROGEN 16 mg/dl (7-17); CALCIUM 9.1 mg/dL (8.4-10.2); GFR AFRICAN-AMERICAN > 60; GFR NON-AFRICAN AMERICAN > 60
[2017-08-15 10:19] LABS: ACETAMINOPHEN < 10.0 ug/ml (10.0-30.0); SALICYLATE < 1.0 mg/dl
--- NOTE | 2017-08-15 10:20 | ED PDOC ---
HPI: Psych/Substance Abuse Time Seen by Provider: 08/15/17 09:20 Chief Complaint (Nursing): Psychiatric Evaluation Chief Complaint (Provider): Psychiatric Evaluation History Per: Patient History/Exam Limitations: no limitations Current Symptoms Are (Timing): Still Present Associated Symptoms: Suicidal Thoughts Additional Complaint(s): 36 year old female with history of depression and schizophrenia presents to the ED with suicidal ideation and plan. Patient reports she not compliant with her medications for management of schizophrenia and feels "weird". She admits to regular alcohol with her most recent drink last night. Denies homicidal ideation. PMD: none provided Past Medical History Reviewed: Historical Data, Nursing Documentation, Vital Signs Vital Signs: Last Vital Signs Temp 98.5 F 08/15/17 09:16 Pulse 98 H 08/15/17 09:16 Resp 16 08/15/17 09:16 BP 125/86 08/15/17 09:16 Pulse Ox 98 08/15/17 09:16 - Medical History PMH: Anxiety, Bipolar Disorder, Depression, Hypercholesterolemia, Schizophrenia Denies: Diabetes, Hepatitis, HIV, HTN, Chronic Kidney Disease, Seizures, Sexually Transmitted Disease - Surgical History Surgical History: (x3) - Family History Family History: States: Unknown Family Hx - Social History Current smoker - smoking cessation education provided: Yes Alcohol: Social Drugs: Denies - Immunization History Hx Tetanus Toxoid Vaccination: No Hx Influenza Vaccination: No Hx Pneumococcal Vaccination: No - Home Medications Home Medications: Ambulatory Orders Medication Instructions Recorded OLANZapine [ZyPREXA] 10 mg PO BID 08/15/17 - Allergies Allergies/Adverse Reactions: Allergies Allergy/AdvReac Type Severity Reaction Status Date / Time aspirin AdvReac NAUSEA Verified 08/15/17 09:39 Review of Systems ROS Statement: Except As Marked, All Systems Reviewed And Found Negative Psych: Positive for: Depression, Suicidal ideation (with plan) Physical Exam - Reviewed Nursing Documentation Reviewed: Yes Vital Signs Reviewed: Yes - Physical Exam Appears: Positive for: No Acute Distress Head Exam: Positive for: ATRAUMATIC, NORMOCEPHALIC Skin: Positive for: Normal Color, Warm, Dry Cardiovascular/Chest: Positive for: Regular Rate, Rhythm. Negative for: Murmur Respiratory: Positive for: Normal Breath Sounds. Negative for: Respiratory Distress Gastrointestinal/Abdominal: Positive for: Normal Exam, Soft. Negative for: Tenderness Neurologic/Psych: Positive for: Alert (awake ), Oriented, Other (tangential thinking; fragmented sentences and paranoid) - Laboratory Results Result Diagrams: 08/15/17 09:52 08/15/17 09:52 - ECG ECG: Positive for: Interpreted By Me, Viewed By Me ECG Rhythm: Positive for: Sinus Rhythm (normal ) Rate: 85 O2 Sat by Pulse Oximetry: 98 (RA) Pulse Ox Interpretation: Normal Medical Decision Making Medical Decision Making: Time: 09:35 Initial Plan: psychiatric complaint. --EKG --Acetaminophen --Alcohol serum --BMP --urine drug --salicylate --CBC --UA ua shows uti. Time: 12:13 Patient will be admitted to inpatient care. Received dose of Macrobid. Diagnosis is depression and UTI. Scribe Attestation: Documented by Santa Bills, acting as a scribe for Vandana oGnzales MD Provider Scribe Attestation: All medical record entries made by the Scribe were at my direction and personally dictated by me. I have reviewed the chart and agree that the record accurately reflects my personal performance of the history, physical exam, medical decision making, and the department course for this patient. I have also personally directed, reviewed, and agree with the discharge instructions and disposition. Disposition - Clinical Impression Clinical Impression: Depression - Patient ED Disposition Is Patient to be Admitted: Yes - Disposition Disposition Time: 12:00 Condition: STABLE - Pt Status Changed To: Hospital Disposition Of: Inpatient - Admit Certification Admit to Inpatient:: After my assessment, the patient will require hospitalization for at least two midnights. This is because of the severity of symptoms shown, intensity of services needed, and/or the medical risk in this patient being treated as an outpatient.
[2017-08-15 10:31] LABS: SQUAMOUS EPITHIAL 17 /hpf (0-5); URINE BACTERIA RARE (<OCC); URINE BILIRUBIN SMALL (NEGATIVE); URINE BLOOD NEGATIVE (NEGATIVE); URINE CLARITY CLOUDY (Clear); URINE COLOR YELLOW (YELLOW); URINE GLUCOSE (UA) NEG (Normal); URINE LEUKOCYTE ESTERASE MOD Leu/uL (Negative); URINE PROTEIN 100 mg/dL (NEGATIVE)
[2017-08-15 10:44] LABS: BARBITURATES, UR NEGATIVE (NEGATIVE); BENZODIAZEPINES, UR NEGATIVE (NEGATIVE); OPIATES, UR NEGATIVE (NEGATIVE); PHENCYCLIDINE, UR NEGATIVE (NEGATIVE)
[2017-08-15 12:49] VITALS: RESP 18
--- NOTE | 2017-08-15 12:55 | RAD ---
HISTORY: clearance COMPARISON: 03/30/2017 FINDINGS: LUNGS: No active pulmonary disease. PLEURA: No significant pleural effusion identified, no pneumothorax apparent. CARDIOVASCULAR: Normal. OSSEOUS STRUCTURES: No significant abnormalities. VISUALIZED UPPER ABDOMEN: Normal. OTHER FINDINGS: None. IMPRESSION: No interval pathology noted
[2017-08-15] MEDS ORDERED: Magnesium Hydroxide Susp 30 ml UD PO PRN (13:47)
[2017-08-15] MEDS ORDERED: DiphenhydrAMINE 50 mg/ml Inj IM PRN (13:47)
[2017-08-15] MEDS ORDERED: Alum-Mag Hydrox-Simethicone Susp (30 mL) PO PRN (13:47)
--- NOTE | 2017-08-15 15:07 | PCM.PSYCH ---
Initial Psychiatric Evaluation - Initial Psychiatric Evaluation Type of Admission: Voluntary Legal Status: Capacity Chief Complaint (in patient's own words): I was seeing demons Patient's Reaction to Hospitalization: pt requested help History of Present Illness and Precipitating Events: pt is 36ys old female with previous diagnosis of schizoaffective disorder , non compliant with medications or follow up, pt has been homeless and having financial difficulties , became increasingly depressed, started having suicidal ideation came to ER seeking help pt reported she has been experiencing visual hallucinations seeing demons around , continues to be depressed with passive suicidal ideation due to her current living situation , no active plan on unit, reported decreased sleep, low energy, denied homicidal ideation, no reported substance use Current Medications: Active Medications Generic Name Dose Route Start Last Admin Trade Name Freq PRN Reason Stop Dose Admin Acetaminophen 650 mg 08/15/17 13:47 Tylenol 325mg Tab PO Q4 PRN Pain, moderate (4-7) Al Hydrox/Mg Hydrox/Simethicone 30 ml 08/15/17 13:47 Maalox Plus 30 Ml PO Q4 PRN Dyspepsia Diphenhydramine HCl 50 mg 08/15/17 13:47 Benadryl IM Q6 PRN Extrapyramidal S/S Unable PO Diphenhydramine HCl 50 mg 08/15/17 13:47 Benadryl PO Q6 PRN Extrapyramidal Symptoms Haloperidol 5 mg 08/15/17 13:47 Haldol PO Q4 PRN Agitation Lorazepam 2 mg 08/15/17 13:47 Ativan IM Q4 PRN Anxiety/Agitation,Unable PO Lorazepam 1 mg 08/15/17 13:50 Ativan PO TID PRN Anxiety Magnesium Hydroxide 30 ml 08/15/17 13:47 Milk Of Magnesia PO HS PRN Constipation Olanzapine 5 mg 08/16/17 09:00 Zyprexa PO DAILY XAVIER Olanzapine 5 mg 08/15/17 22:00 Zyprexa PO HS XAVIER Past Psychiatric History - Past Psychiatric History Explanation of prior treatment: multiple inpatient hospitalizations, history of non compliance History of ETOH/Drug Use: denied Pertinent Medical Hx (Current Medical&Sleep Prob, Allergies): Allergies Allergy/AdvReac Type Severity Reaction Status Date / Time aspirin AdvReac NAUSEA Verified 08/15/17 09:39 OLANZapine [ZyPREXA] 10 mg PO BID 06/06/18 Mental Status Examination - Personal Presentation Personal Presentation: Looks stated age - Affect Affect: Constricted, Depressed - Motor Activity Motor Activity: Psychomotor Agitation - Reliability in Providing Information Reliability in Providing Information: Poor, due to alteration in thoughts, Poor , due to altered mood - Speech Speech: Tangential - Mood Mood: Depressed, Anxious - Formal Thought Process Formal Thought Process: Hallucinations, Circumstantial - Hallucinations/Delusions Hallucinations: Visual - Obsessions/Compulsions Obsessions: No Compulsions: No - Cognitive Functions Orientation: Person, Place Sensorium: Alert Attention/Concentration: Easily distracted Judgement: Imparied, as evidence by: Poor judgement, Imparied, as evidence by: Lack of insight into illness - Risk Risk: Suicidal, Diminished functioning - Strength & Assets Inventory Strength & Assets Inventory: Life experience - Limitations Additional comments: poor compliance DSM 5 DX - DSM 5 DSM 5 Diagnosis: schizoaffective disorder - Recommended/Plan of Treatment Treatment Recommendations and Plan of Treatment: start zyprexa 5mg bid GROUP AND SUPPORTIVE THERAPY
--- NOTE | 2017-08-15 16:09 | CARD ---
APPROVED REPORT EKG Measurement Heart [id number] MI [id number] <Conclusion> Normal sinus rhythm Possible Left atrial enlargement Borderline ECG
[2017-08-16 07:38] LABS: T4 5.34 ug/dl (5.5-11.0)
--- NOTE | 2017-08-16 10:17 | CP.PCM.CON ---
History of Present Illness - History of Present Illness History of Present Illness: 36 y/o woman w/ pmh of hypercholesteremia, anxiety, bipolar disorder, depression , and schizophrenia is admitted for suicidal ideation and depression. Patient reports increased stress and depression lately. Patient denies plan for suicide. Patient reports visual hallucinations. Patient denies headahces, chest pain, SOB, abdominal pain, nausea, vomiting, diarrhea, dysuria, or fever. PMH includes hypercholesteremia, anxiety, bipolar disorder, depression, and schizophrenia. PMD: Dr. Butler Specialist: Mental health at [facility] PMH: hypercholesteremia, anxiety, bipolar disorder, depression, and schizophrenia meds: see med list allergies: ASA-GI discomfort PSH: x 3, BTL Fam: father dies of [place] in his 60's, mother at 37 from homicide, siblings are healthy SOC: current smoker 11 pack years, occasional EToH, denies drugs ROS: 12 points assessed and negative unless otherwise reported in HPI seen and examined this morning w/ Dr. Butler Review of Systems - Review of Systems All systems: reviewed and no additional remarkable complaints except - Constitutional Constitutional: absent: Chills, Fever - EENT Eyes: absent: Change in Vision - Cardiovascular Cardiovascular: absent: Chest Pain - Respiratory Respiratory: absent: Dyspnea - Gastrointestinal Gastrointestinal: absent: Abdominal Pain, Diarrhea, Nausea, Vomiting - Genitourinary Genitourinary: absent: Dysuria - Integumentary Integumentary: absent: Rash Past Patient History - Infectious Disease Hx of Infectious Diseases: None - Tetanus Immunizations Tetanus Immunization: Unknown - Past Medical History & Family History Past Medical History?: Yes - Past Social History Alcohol: Social Drugs: Denies - CARDIAC Hx Cardiac Disorders: Yes - PULMONARY Hx Respiratory Disorders: No - NEUROLOGICAL Hx Neurological Disorder: No - HEENT Hx HEENT Problems: No - RENAL Hx Chronic Kidney Disease: No - ENDOCRINE/METABOLIC Hx Endocrine Disorders: No - HEMATOLOGICAL/ONCOLOGICAL Hx Blood Disorders: No - INTEGUMENTARY Hx Dermatological Problems: No - MUSCULOSKELETAL/RHEUMATOLOGICAL Hx Musculoskeletal Disorders: No - GASTROINTESTINAL Hx Gastrointestinal Disorders: No - GENITOURINARY/GYNECOLOGICAL Hx Genitourinary Disorders: No - PSYCHIATRIC Hx Depression: Yes Hx Substance Use: No - SURGICAL HISTORY Hx Section: Yes (x3) - ANESTHESIA Hx Anesthesia: Yes Hx Anesthesia Reactions: No Meds Allergies/Adverse Reactions: Allergies Allergy/AdvReac Type Severity Reaction Status Date / Time aspirin AdvReac NAUSEA Verified 08/15/17 09:39 - Medications Medications: Current Medications Acetaminophen (Tylenol 325mg Tab) 650 mg PO Q4 PRN PRN Reason: Pain, moderate (4-7) Al Hydrox/Mg Hydrox/Simethicone (Maalox Plus 30 Ml) 30 ml PO Q4 PRN PRN Reason: Dyspepsia Diphenhydramine HCl (Benadryl) 50 mg IM Q6 PRN PRN Reason: Extrapyramidal S/S Unable PO Diphenhydramine HCl (Benadryl) 50 mg PO Q6 PRN PRN Reason: Extrapyramidal Symptoms Haloperidol (Haldol) 5 mg PO Q4 PRN PRN Reason: Agitation Lorazepam (Ativan) 2 mg IM Q4 PRN PRN Reason: Anxiety/Agitation,Unable PO Lorazepam (Ativan) 1 mg PO TID PRN PRN Reason: Anxiety Magnesium Hydroxide (Milk Of Magnesia) 30 ml PO HS PRN PRN Reason: Constipation Olanzapine (Zyprexa) 5 mg PO DAILY [facility] Last Admin: 08/16/17 09:13 Dose: 5 mg Olanzapine (Zyprexa) 5 mg PO HS [facility] Last Admin: 08/15/17 21:39 Dose: 5 mg Physical Exam - Constitutional Appears: Non-toxic, No Acute Distress - Head Exam Head Exam: ATRAUMATIC, NORMAL INSPECTION, NORMOCEPHALIC - Eye Exam Eye Exam: Normal appearance - ENT Exam ENT Exam: Mucous Membranes Moist - Neck Exam Neck exam: Positive for: Full Rom. Negative for: Tenderness - Respiratory Exam Respiratory Exam: Clear to Auscultation Bilateral. absent: Accessory Muscle Use , Decreased Breath Sounds, Rales, Rhonchi, Wheezes, Respiratory Distress - Cardiovascular Exam Cardiovascular Exam: REGULAR RHYTHM, RRR. absent: Tachycardia - GI/Abdominal Exam GI & Abdominal Exam: Normal Bowel Sounds, Soft. absent: Distended, Tenderness - Extremities Exam Extremities exam: Positive for: normal inspection. Negative for: calf tenderness - Neurological Exam Neurological exam: Alert, CN II-XII Intact, Normal Gait, Oriented x3 - Psychiatric Exam Psychiatric exam: Anxious, Depressed - Skin Skin Exam: Dry, Intact, Normal Color, Warm Results - Vital Signs Recent Vital Signs: Last Vital Signs Temp 97.5 F L 08/16/17 08:50 Pulse 84 08/16/17 08:50 Resp 18 08/16/17 08:50 BP 133/71 08/16/17 08:50 Pulse Ox 99 08/15/17 12:48 - Labs Result Diagrams: 08/15/17 09:52 08/15/17 09:52 Labs: Laboratory Results - last 24 hr 08/15/17 08/15/17 08/15/17 09:52 09:52 09:52 WBC 13.7 H RBC 4.25 Hgb 13.5 Hct 40.1 MCV 94.3 MCH 31.7 H MCHC 33.6 RDW 12.8 Plt Count 297 MPV 9.8 Neut % (Auto) 71.4 Lymph % (Auto) 21.6 Bath % (Auto) 4.0 Eos % (Auto) 2.4 Baso % (Auto) 0.6 Neut # (Auto) 9.8 H Lymph # (Auto) 3.0 Bath # (Auto) 0.5 Eos # (Auto) 0.3 Baso # (Auto) 0.1 Sodium 141 Potassium 3.6 Chloride 104 Carbon Dioxide 26 Anion Gap 15 BUN 16 Creatinine 0.8 Est GFR ( Amer) > 60 Est GFR (Non-Af Amer) > 60 Random Glucose 119 H Calcium 9.1 Triglycerides Cholesterol LDL Cholesterol Direct HDL Cholesterol Thyroxine (T4) TSH 3rd Generation Urine Color Urine Clarity Urine pH Ur Specific [place] Urine Protein Urine Glucose (UA) Urine Ketones Urine Blood Urine Nitrate Urine Bilirubin Urine Urobilinogen Ur Leukocyte Esterase Urine RBC (Auto) Urine Microscopic WBC Ur Squamous Epith Cells Urine Bacteria Salicylates < 1.0 Urine Opiates Screen Urine Methadone Screen Acetaminophen < 10.0 L Ur Barbiturates Screen Ur Phencyclidine Scrn Ur Amphetamines Screen U Benzodiazepines Scrn U Oth Cocaine Metabols U Cannabinoids Screen Alcohol, Quantitative < 10 08/15/17 08/15/17 08/16/17 10:15 10:15 06:46 WBC RBC Hgb Hct MCV MCH MCHC RDW Plt Count MPV Neut % (Auto) Lymph % (Auto) Bath % (Auto) Eos % (Auto) Baso % (Auto) Neut # (Auto) Lymph # (Auto) Bath # (Auto) Eos # (Auto) Baso # (Auto) Sodium Potassium Chloride Carbon Dioxide Anion Gap BUN Creatinine Est GFR ( Amer) Est GFR (Non-Af Amer) Random Glucose Calcium Triglycerides 117 D Cholesterol 230 H LDL Cholesterol Direct 127 HDL Cholesterol 59 Thyroxine (T4) 5.34 L TSH 3rd Generation 0.60 Urine Color Yellow Urine Clarity Cloudy Urine pH 5.0 Ur Specific [place] 1.035 H Urine Protein 100 Urine Glucose (UA) Neg Urine Ketones Trace Urine Blood Negative Urine Nitrate Negative Urine Bilirubin Small Urine Urobilinogen 2.0 H Ur Leukocyte Esterase Mod Urine RBC (Auto) 4 H Urine Microscopic WBC 40 H Ur Squamous Epith Cells 17 H Urine Bacteria Rare Salicylates Urine Opiates Screen Negative Urine Methadone Screen Negative Acetaminophen Ur Barbiturates Screen Negative Ur Phencyclidine Scrn Negative Ur Amphetamines Screen Negative U Benzodiazepines Scrn Negative U Oth Cocaine Metabols Negative U Cannabinoids Screen Negative Alcohol, Quantitative Assessment & Plan (1) Suicidal ideation Status: Acute (2) Depression Status: Chronic (3) Schizophrenia Status: Chronic - Assessment and Plan (Free Text) Plan: c/w present management as per psychiatry team afebrile, non-tachycardic, normotensive c/w macrobid 100 mg PO Q12h day 1 monitor for acute changes
--- NOTE | 2017-08-16 12:31 | PCM.PYCHPN ---
Psychiatric Progress Note - Psychiatric Progress Note Patient seen today, length of contact: pt evaluated discussed with team chart reviewed Patient Chief Complaint: I still feel anxious and irritable Problems Identified/Issues Discussed: pt seen in bed , continues to be anhedonic, isolating herself reported feeling anxious, irritable affect , clearing off of the visual hallucinations, psychoeducation provided, encouraged pt to attend groups, no reported side effects of medications pt denied any current active suicidal ideation or plan Medical Problems: multiple inpatient hospitalizations, history of non compliance DSM 5 Symptoms Update: schizoaffective disorder Medication Change: No Medical Record Reviewed: Yes Mental Status Examination - Cognitive Function Orientation: Person, Place, Situation Attention: WNL Concentration: Poor Fund of Knowledge: Poor Decription of patient's judgement and insights: poor insight and judgment - Mood Mood: Depressed, Anxious - Affect Affect: Constricted, Depressed - Formal Thought Process Formal Thought Process: Hallucinations, Circumstantial - Suicidal Ideation Suicidal Ideation: No - Homicidal Ideation Homicidal Ideation: No Goal/Treatment Plan - Goal/Treatment Plan Need for Continued Stay: Remain at risks for inpatient hospitalization, Severe depression anxiety, Discharge may exacerbated symptoms Progress Toward Problem(s) and Goals/Treatment Plan: zyprexa 10mg qhs GROUP AND SUPPORTIVE THERAPY
[2017-08-16 23:46] VITALS: O2SAT 98
--- NOTE | 2017-08-17 11:02 | CP.PCM.PN ---
Subjective - Date & Time of Evaluation Date of Evaluation: 08/17/17 Time of Evaluation: 10:05 - Subjective Subjective: Patient seen and examined this morning at bedside w/ Dr. Butler. There are no acute events overnight, NAD. The patient is feeling better but is still depressed. The patient denies headaches, chest pain, SOB, abdominal pain, nausea, vomiting, diarrhea, dysuria, or fever. Objective - Vital Signs/Intake and Output Vital Signs (last 24 hours): Temp Pulse Resp BP Pulse Ox 97.5 F L 85 18 119/75 98 08/16/17 17:00 08/17/17 01:21 08/16/17 17:00 08/16/17 17:00 08/17/17 01:21 - Medications Medications: Current Medications Acetaminophen (Tylenol 325mg Tab) 650 mg PO Q4 PRN PRN Reason: Pain, moderate (4-7) Al Hydrox/Mg Hydrox/Simethicone (Maalox Plus 30 Ml) 30 ml PO Q4 PRN PRN Reason: Dyspepsia Diphenhydramine HCl (Benadryl) 50 mg IM Q6 PRN PRN Reason: Extrapyramidal S/S Unable PO Diphenhydramine HCl (Benadryl) 50 mg PO Q6 PRN PRN Reason: Extrapyramidal Symptoms Haloperidol (Haldol) 5 mg PO Q4 PRN PRN Reason: Agitation Lorazepam (Ativan) 2 mg IM Q4 PRN PRN Reason: Anxiety/Agitation,Unable PO Lorazepam (Ativan) 1 mg PO TID PRN PRN Reason: Anxiety Magnesium Hydroxide (Milk Of Magnesia) 30 ml PO HS PRN PRN Reason: Constipation Nitrofurantoin Macrocrystals (Macrobid) 100 mg PO Q12@0600,1800 XAVIER PRN Reason: Protocol Last Admin: 08/17/17 07:24 Dose: 100 mg Olanzapine (Zyprexa) 10 mg PO HS XAVIER - Labs Labs: 08/15/17 09:52 08/15/17 09:52 - Constitutional Appears: Non-toxic, No Acute Distress - Head Exam Head Exam: ATRAUMATIC, NORMAL INSPECTION, NORMOCEPHALIC - Eye Exam Eye Exam: Normal appearance - ENT Exam ENT Exam: Mucous Membranes Moist - Neck Exam Neck Exam: Full ROM. absent: Tenderness - Respiratory Exam Respiratory Exam: Clear to Ausculation Bilateral. absent: Accessory Muscle Use , Decreased Breath Sounds, Rales, Rhonchi, Wheezes, Respiratory Distress - Cardiovascular Exam Cardiovascular Exam: REGULAR RHYTHM. absent: Tachycardia - GI/Abdominal Exam GI & Abdominal Exam: Soft, Normal Bowel Sounds. absent: Distended, Tenderness - Extremities Exam Extremities Exam: absent: Calf Tenderness - Neurological Exam Neurological Exam: Alert, Awake, Oriented x3 - Skin Skin Exam: Dry, Intact, Normal Color, Warm Assessment and Plan (1) Suicidal ideation Status: Acute (2) Depression Status: Chronic (3) Schizophrenia Status: Chronic - Assessment and Plan (Free Text) Plan: c/w present management as per psychiatry team afebrile, non-tachycardic, normotensive c/w macrobid 100 mg PO Q12h day 2 monitor for acute changes
--- NOTE | 2017-08-17 14:01 | PCM.PYCHPN ---
Psychiatric Progress Note - Psychiatric Progress Note Patient seen today, length of contact: pt evaluated discussed with team chart reviewed Patient Chief Complaint: I broke up with my boyfriend , so I am very depressed Problems Identified/Issues Discussed: pt evaluated with treatment team , presenting with depressed mood , anxious and irritable affect , relates that to the break up with boyfriend , pt presenting with poor impulse control, discussed increase in dose of zyprexa , pt reported clearing off of the perceptual disturbances denied any current suicidal or homicidal ideation encouraged to attend groups and psychoeducation provided for medication compliance Medical Problems: multiple inpatient hospitalizations, history of non compliance DSM 5 Symptoms Update: bipolar disorder mixed Medication Change: No Medical Record Reviewed: Yes Mental Status Examination - Cognitive Function Orientation: Person, Place, Situation Attention: WNL Concentration: Poor Fund of Knowledge: Poor Decription of patient's judgement and insights: poor insight and judgment - Mood Mood: Depressed, Anxious - Affect Affect: Constricted, Depressed - Formal Thought Process Formal Thought Process: Hallucinations, Circumstantial - Suicidal Ideation Suicidal Ideation: No - Homicidal Ideation Homicidal Ideation: No Goal/Treatment Plan - Goal/Treatment Plan Need for Continued Stay: Remain at risks for inpatient hospitalization, Severe depression anxiety, Discharge may exacerbated symptoms Progress Toward Problem(s) and Goals/Treatment Plan: Increase zyprexa 2.5mg daily, 10mg qhs group and supportive therapy
--- NOTE | 2017-08-18 09:48 | PCM.BM ---
<Pablito Vega - Last Filed: 08/18/17 09:46> Treatment assets and liabiliti Patient Assests: ADL independent, physically healthy, negotiates basic needs, cognitively intact - Milieu Protocol Milieu Narrative: Increase zyprexa 2.5mg daily, 10mg qhs group and supportive therapy Family Contact Family involvement: Famliy/SO not involved Family contact: Patient declines to allow family contact at present Family contact name: Pt refused. - Goals for Treatment Patient goals for treatment: Pt refused to provide goals. But pt agreed to additional medication to help with her labile mood and irritability. Pt is discharged focused and wanting to stay at shelters in [facility]. Discharge/Continuing Care - Education Needs Education Needs: Patient Medication, Patient Diagnosis/Disease Process, Patient Coping Skills, Patient Community resources, Patient Aftercare Safety Plan - Discharge Discharge Criteria: Tolerates medication w/o severe side effects, Free of Suicidal thoughts, Free of paranoid thoughts, Free of agitation, Normal sleep pattern, Reduction of target symptoms Discharge to:: Assisted - Treatment Team Participation Patient/Family/SO Statement: Increase zyprexa 2.5mg daily, 10mg qhs group and supportive therapy Discussed with Family/SO: No Was Patient/Family/SO present at Treatment Team Meeting: Yes <Linda Diamond - Last Filed: 08/18/17 11:26> - Diagnosis (1) Depression Status: Chronic Interventions: 08/18/17 11:26 psychotherapy, pharrmacotherapy
--- NOTE | 2017-08-18 11:43 | PCM.PYCHPN ---
Psychiatric Progress Note - Psychiatric Progress Note Patient seen today, length of contact: pt evaluated discussed with team chart reviewed Patient Chief Complaint: I still feel down and irritable Problems Identified/Issues Discussed: pt seen in bed , presenting with anxious mood and irritable affect , stated feeling down due to her current living situation, being homeless and due to recent break up with boyfriend , pt denied any current side effects with the increase in zyprexa, discussed up titrating gradually as needed no reported side effects, pt denied any current suicidal or homicidal ideations denied any current perceptual disturbances Medical Problems: multiple inpatient hospitalizations, history of non compliance DSM 5 Symptoms Update: bipolar disorder depressed impulse control disorder Medication Change: No Medical Record Reviewed: Yes Mental Status Examination - Cognitive Function Orientation: Person, Place, Situation Attention: WNL Concentration: Poor Fund of Knowledge: Poor Decription of patient's judgement and insights: poor insight and judgment - Mood Mood: Depressed, Anxious - Affect Affect: Constricted, Depressed - Speech Speech: Appropriate - Formal Thought Process Formal Thought Process: Hallucinations, Circumstantial - Suicidal Ideation Suicidal Ideation: No - Homicidal Ideation Homicidal Ideation: No Goal/Treatment Plan - Goal/Treatment Plan Need for Continued Stay: Remain at risks for inpatient hospitalization, Severe depression anxiety, Discharge may exacerbated symptoms Progress Toward Problem(s) and Goals/Treatment Plan: Increase zyprexa 2.5mg daily, 10mg qhs group and supportive therapy
--- NOTE | 2017-08-18 14:00 | PN ---
DATE: 08/18/2017 SUBJECTIVE: The patient is seen and examined. Interim events noted. Consults noted and appreciated. Psychiatry followup and interventions noted and appreciated. The patient remains in adult psych unit. Feels okay. Denies any medical complaints. No chest pain, no shortness of breath. PHYSICAL EXAMINATION: GENERAL: The patient is in no acute distress. VITAL SIGNS: Stable. HEART: S1 and S2, normal and regular. LUNGS: Good bilateral air exchange. ABDOMEN: Soft and nontender. EXTREMITIES: No edema. No calf swelling. No tenderness. No acute ischemia. CROP AND SOIL TECHNICIAN: Exam is essentially unchanged. DIAGNOSTIC DATA: Available diagnostic data reviewed. PLAN: Overall, the patient's general medical condition is stable. Plan as ordered. Zi Butler MD
--- NOTE | 2017-08-19 11:35 | PCM.PYCHPN ---
Psychiatric Progress Note - Psychiatric Progress Note Patient seen today, length of contact: pt evaluated discussed with team chart reviewed Patient Chief Complaint: I am calmer today Problems Identified/Issues Discussed: pt seen in day room, more interacttive with staff and other patients, , presentibg with better mood reported feeling calmer less irritable, affect more stable, no reported side effect of medication, denied any current suicidal or homicidal ideation denied any current perceptual disturbances Medical Problems: multiple inpatient hospitalizations, history of non compliance DSM 5 Symptoms Update: bipolar disorder depressed Medication Change: No Medical Record Reviewed: Yes Mental Status Examination - Cognitive Function Orientation: Person, Place, Situation Attention: WNL Concentration: Poor Fund of Knowledge: Poor Decription of patient's judgement and insights: poor insight and judgment - Mood Mood: Depressed, Anxious - Affect Affect: Constricted, Depressed - Speech Speech: Appropriate - Formal Thought Process Formal Thought Process: Hallucinations, Circumstantial - Suicidal Ideation Suicidal Ideation: No - Homicidal Ideation Homicidal Ideation: No Goal/Treatment Plan - Goal/Treatment Plan Need for Continued Stay: Remain at risks for inpatient hospitalization, Severe depression anxiety, Discharge may exacerbated symptoms Progress Toward Problem(s) and Goals/Treatment Plan: continue zyprexa 2.5mg daily, 10mg qhs group and supportive therapy
[2017-08-19 17:41] VITALS: BP 119/74; PULSE 71; TEMP 97.2
--- NOTE | 2017-08-20 08:41 | PN ---
DATE: 08/19/2017 SUBJECTIVE: The patient is seen and examined. Interim events noted. noted and appreciated by nursing staff. PHYSICAL EXAMINATION: GENERAL: The patient is in no acute distress. VITAL SIGNS: Vital signs are stable. HEART: S1, S2 normal and regular. LUNGS: Shows good bilateral air exchange. ABDOMEN: Soft and nontender. EXTREMITIES: No edema. No calf swelling. No tenderness. No acute ischemia. ORDER DISPATCHER CHIEF: Essentially unchanged. DIAGNOSTIC DATA: Available diagnostic data reviewed . ASSESSMENT AND PLAN: Overall, the patient is medically stable. Zi Butler MD
--- NOTE | 2017-08-20 09:37 | PN ---
DATE: 08/20/2017 MEDICAL FOLLOWUP SUBJECTIVE: The patient is seen and examined. Interim events noted. Psychiatry followup and interventions noted and appreciated. The patient remains in Adult Psychiatric Unit. Feels much better, but possible discharge today. Denies any medical complaints. No specific medical issues. Reported by nursing staff. PHYSICAL EXAMINATION: GENERAL: The patient is in no acute distress. VITAL SIGNS: Stable. HEART: S1 and S2, normal and regular. LUNGS: Good bilateral air exchange. ABDOMEN: Soft and nontender. EXTREMITIES: No edema. No calf swelling. No tenderness. No acute ischemia. CENTRAL NERVOUS SYSTEM: Exam is essentially unchanged. DIAGNOSTIC DATA: Available diagnostic data reviewed. ASSESSMENT AND PLAN: Overall, the patient's general medical condition is stable. Plan as ordered. Zi Butler MD
--- NOTE | 2017-08-20 10:07 | PCM.PYCHDC ---
Mental Status Examination - Mental Status Examination Orientation: Person, Place, Situation Memory: Intact Mood: Neutral Affect: Broad Speech: Appropriate Attention: WNL Concentration: WNL Association: WNL Fund of Knowledge: WNL Formal Thought Process: No Impairment Description of patient's judgement and insight: partial insight and fair judgment Psychotic Thoughts and Behaviors: pt on admission denied perceptual disturbances, non elicited Suicidal Ideation: No Current Homicidal Ideation?: No Discharge Summary - Discharge Note Reason for Hospitalization: pt is 36ys old female with previous diagnosis of schizoaffective disorder , non compliant with medications or follow up, pt has been homeless and having financial difficulties , became increasingly depressed, started having suicidal ideation came to ER seeking help pt reported she has been experiencing visual hallucinations seeing demons around , continues to be depressed with passive suicidal ideation due to her current living situation , no active plan on unit, reported decreased sleep, low energy, denied homicidal ideation, no reported substance use Consultations:: List each consultation separately and include: 1. Reason for request. 2. Findings. 3. Follow-up Summary of Hospital Course include:: 1. Description of specific treatment plan utilized for patients during their course of treatmen. 2. Summarize the time- course for resolution of acute symptoms and/or regressed behaviors. 3. Describe issues identified and worked on during hospitalization. 4. Describe medication utilized. 5. Describe medical problems identified and treated. 6. Reassessment of suicide risk Summary of Hospital Course: pt on admission was presenting with depressed mood , increased anxiety and irritability pt was started on zyprexa 10mg qhs pt was compliant with medications, attended groups, no reported side effects of medications on discharge mental status was stable, pt denied suicidal or homicidal ideation denied perceptual disturbances - Diagnosis (1) Depression Current Visit: Yes Status: Chronic - Final Diagnosis (DSM 5) Condition upon Discharge: STABLE DSM 5: bipolar disorder MRE mixed Disposition: HOME/ ROUTINE Follow-up Treatment Plan: continue zyprexa 2.5mg daily, 10mg qhs group and supportive therapy Prescriptions/Medication Reconciliation: Nitrofurantoin Macrocrystals [Macrobid] 100 mg PO Q12@0900,2100 3 Days #6 cap OLANZapine [Zyprexa] 10 mg PO HS 30 Days #30 tab - Antipsychotic Medications Pt discharged on 2 or more routine antipsychotic medications: No
== END 2017-08-20 12:16 | disposition home or self-care (01) | DRG 430 ==
LOC: H.ER 09:05 → H.ERHOLD 12:11 → H.PSYCH 13:12
PROVIDERS: ADMIT Psychiatry & Neurology Psychiatry; ATTEND Psychiatry & Neurology Psychiatry
PROC: GZHZZZZ Group Psychotherapy (ICD-10-PCS; principal; 2017-08-15)
PROC: GZ56ZZZ Individual Psychotherapy, Supportive (ICD-10-PCS; 2017-08-15)
DX: F31.60 Bipolar disorder, current episode mixed, unspecified (principal); N39.0 Urinary tract infection, site not specified; Z59.0 Homelessness; R45.851 Suicidal ideations; Z91.14 Patient's other noncompliance with medication regimen; Z91.19 Patient's noncompliance with other medical treatment and regimen; E78.00 Pure hypercholesterolemia, unspecified; F17.210 Nicotine dependence, cigarettes, uncomplicated

== ENCOUNTER 2017-10-27 00:33 | Inpatient (IN) | payer MEDICAID ==
[2017-10-27 00:33] VITALS: BMI 22.4
[2017-10-27 00:38] VITALS: O2SAT 100
--- NOTE | 2017-10-27 01:17 | ED PDOC ---
HPI: Psych/Substance Abuse Time Seen by Provider: 10/27/17 00:43 Chief Complaint (Nursing): Psychiatric Evaluation Past Medical History Vital Signs: Last Vital Signs Temp 98 F 10/27/17 00:35 Pulse 69 10/27/17 00:35 Resp 16 10/27/17 00:35 BP 116/74 10/27/17 00:35 Pulse Ox 100 10/27/17 00:35 - Medical History PMH: Anxiety, Bipolar Disorder, Depression, Hypercholesterolemia, Schizophrenia Denies: Diabetes, Hepatitis, HIV, HTN, Chronic Kidney Disease, Seizures, Sexually Transmitted Disease - Surgical History Surgical History: (x3) - Family History Family History: States: Unknown Family Hx - Immunization History Hx Tetanus Toxoid Vaccination: No Hx Influenza Vaccination: No Hx Pneumococcal Vaccination: No - Home Medications Home Medications: Ambulatory Orders Medication Instructions Recorded No Known Home Med 10/18/17 - Allergies Allergies/Adverse Reactions: Allergies Allergy/AdvReac Type Severity Reaction Status Date / Time aspirin AdvReac upset Verified 10/21/17 02:48 stomach - ECG O2 Sat by Pulse Oximetry: 100 Disposition - Disposition Forms: [employer] (Kiswahili)
--- NOTE | 2017-10-27 01:51 | ED PDOC ---
HPI: Psych/Substance Abuse Time Seen by Provider: 10/27/17 00:43 Chief Complaint (Nursing): Psychiatric Evaluation Chief Complaint (Provider): Psychiatric Evaluation History Per: Patient History/Exam Limitations: no limitations Onset/Duration Of Symptoms: Hrs Current Symptoms Are (Timing): Still Present Additional Complaint(s): 36 y/o female with a PMHx of depression, anxiety, and bipolar disorder brought to the ED for psychiatric evaluation after police were called to a [facility] where she was having an emotional episode. Patient was seen in the ED earlier today for similar complaints and was discharged. Patient states she "doesn't want to be alive anymore and can't take living like this." Patient reports of having a suicidal plan to overdose on 100 pills and "shoot up" heroin even though she denies drug use. Patient states her symptoms were exacerbated today after having a break up with her boyfriend. Otherwise: (-) hallucinations, (-) homicidal ideation. Patient has no physical complaints at this time. PMD: Zi Butler LNMP: Cannot recall Past Medical History Reviewed: Historical Data, Nursing Documentation, Vital Signs Vital Signs: Last Vital Signs Temp 98 F 10/27/17 00:35 Pulse 69 10/27/17 00:35 Resp 16 10/27/17 00:35 BP 116/74 10/27/17 00:35 Pulse Ox 100 10/27/17 00:35 - Medical History PMH: Anxiety, Bipolar Disorder, Depression, Hypercholesterolemia, Schizophrenia - Surgical History Surgical History: (x3) - Family History Family History: States: Unknown Family Hx - Home Medications Home Medications: Ambulatory Orders Medication Instructions Recorded No Known Home Med 10/18/17 - Allergies Allergies/Adverse Reactions: Allergies Allergy/AdvReac Type Severity Reaction Status Date / Time aspirin AdvReac upset Verified 10/21/17 02:48 stomach Review of Systems ROS Statement: Except As Marked, All Systems Reviewed And Found Negative Psych: Positive for: Suicidal ideation (with plan) Physical Exam - Reviewed Nursing Documentation Reviewed: Yes Vital Signs Reviewed: Yes - Physical Exam Comments: GENERAL APPEARANCE: Patient is awake, alert, oriented x 3, in no acute distress. Tearful. SKIN: Warm, dry; (-) cyanosis EYES: (-) conjunctival pallor, (-) scleral icterus, (-) nystagmus. ENMT: Mucous membranes moist. Airway patent: (-) stridor. NECK: Supple, FROM HEART AND CARDIOVASCULAR: (-) irregularity CHEST AND RESPIRATORY: (-) rales, (-) rhonchi, (-) wheezes; breath sounds equal. Respirations even and nonlabored, speaking in full sentences. ABDOMEN: Soft, (-) distention, (-) tenderness, (-) guarding (-) rebound. NEURO AND PSYCH: Mental status as above. Affect: flat clinical marketing manager: Intact. Pupils equal and reactive; EOMI; (-) facial asymmetry; Gait steady, speech clear. - Laboratory Results Result Diagrams: 10/27/17 04:02 10/27/17 04:02 - ECG O2 Sat by Pulse Oximetry: 100 (RA) Pulse Ox Interpretation: Normal Medical Decision Making Medical Decision Making: Time: 43 Impression: Psychiatric Evaluation, Suicidal Ideation Plan: -- Crisis Evaluation -- 1:1 Observation -- Re-evaluation 0200 Patient resting comfortably on re-evaluation. Offers no complaints at this time. 0320 Per crisis evaluation, patient to be admitted for depressive disorder per Dr Werner. -CBC with diff, CMP, U/A, Urine drug screen, Serum Alcohol, and Urine ordered. 0430 CBC and CMP unremarkable. Upreg (-). U/A (+) contamination. U/C pending. Alcohol serum < 10. Urine drug screen: negative Arrangements made for admission. Patient agreeable to psychiatric admission at this time. Patient is medically stable for psychiatric admission. Vitals stable. Scribe Attestation: Documented by Lexi Amezquita acting as a scribe for Rosalind Otero PA-C. Provider Scribe Attestation: All medical record entries made by the Scribe were at my direction and personally dictated by me. I have reviewed the chart and agree that the record accurately reflects my personal performance of the history, physical exam, medical decision making, and the department course for this patient. I have also personally directed, reviewed, and agree with the discharge instructions and disposition. Disposition - Clinical Impression Clinical Impression: Depressive disorder - Patient ED Disposition Is Patient to be Admitted: Yes Counseled Patient/Family Regarding: Studies Performed, Diagnosis - Disposition Disposition Time: 04:30 Condition: FAIR - Pt Status Changed To: Hospital Disposition Of: Inpatient - Admit Certification Admit to Inpatient:: After my assessment, the patient will require hospitalization for at least two midnights. This is because of the severity of symptoms shown, intensity of services needed, and/or the medical risk in this patient being treated as an outpatient. - POA Present On Arrival: None Results - Lab Results Lab Results: 10/27/17 10/27/17 10/27/17 04:02 04:02 04:02 WBC RBC Hgb Hct MCV MCH MCHC RDW Plt Count MPV Neut % (Auto) Lymph % (Auto) Bradford % (Auto) Eos % (Auto) Baso % (Auto) Neut # (Auto) Lymph # (Auto) Bradford # (Auto) Eos # (Auto) Baso # (Auto) Sodium 138 Potassium 4.1 Chloride 103 Carbon Dioxide 28 Anion Gap 11 BUN 14 Creatinine 0.6 L Est GFR ( Amer) > 60 Est GFR (Non-Af Amer) > 60 Random Glucose 90 Calcium 9.0 Total Bilirubin 0.4 AST 16 ALT 13 Alkaline Phosphatase 57 Total Protein 6.7 Albumin 3.7 Globulin 3.0 Albumin/Globulin Ratio 1.3 Urine Color Yellow Urine Clarity Turbid Urine pH 8.0 Ur Specific Isabella 1.014 Urine Protein 100 Urine Glucose (UA) Neg Urine Ketones Negative Urine Blood Negative Urine Nitrate Negative Urine Bilirubin Negative Urine Urobilinogen 0.2-1.0 Ur Leukocyte Esterase Mod Urine RBC (Auto) 51 H Urine WBC Clumps (Auto) Many H Urine Microscopic WBC 670 H Ur Squamous Epith Cells 21 H Urine Bacteria Occ H Urine Opiates Screen Negative Urine Methadone Screen Negative Ur Barbiturates Screen Negative Ur Phencyclidine Scrn Negative Ur Amphetamines Screen Negative U Benzodiazepines Scrn Negative U Oth Cocaine Metabols Negative U Cannabinoids Screen Negative Alcohol, Quantitative < 10 10/27/17 04:02 WBC 12.0 H RBC 4.04 Hgb 12.9 Hct 38.0 MCV 94.2 MCH 31.9 H MCHC 33.9 RDW 12.9 Plt Count 277 MPV 9.7 Neut % (Auto) 73.5 Lymph % (Auto) 18.8 L Bradford % (Auto) 4.5 Eos % (Auto) 2.9 Baso % (Auto) 0.3 Neut # (Auto) 8.8 H Lymph # (Auto) 2.3 Bradford # (Auto) 0.5 Eos # (Auto) 0.4 Baso # (Auto) 0.0 Sodium Potassium Chloride Carbon Dioxide Anion Gap BUN Creatinine Est GFR ( Amer) Est GFR (Non-Af Amer) Random Glucose Calcium Total Bilirubin AST ALT Alkaline Phosphatase Total Protein Albumin Globulin Albumin/Globulin Ratio Urine Color Urine Clarity Urine pH Ur Specific Isabella Urine Protein Urine Glucose (UA) Urine Ketones Urine Blood Urine Nitrate Urine Bilirubin Urine Urobilinogen Ur Leukocyte Esterase Urine RBC (Auto) Urine WBC Clumps (Auto) Urine Microscopic WBC Ur Squamous Epith Cells Urine Bacteria Urine Opiates Screen Urine Methadone Screen Ur Barbiturates Screen Ur Phencyclidine Scrn Ur Amphetamines Screen U Benzodiazepines Scrn U Oth Cocaine Metabols U Cannabinoids Screen Alcohol, Quantitative
[2017-10-27 04:06] LABS: BASO % 0.3 % (0.0-2.0); EOS # 0.4 K/uL (0.0-0.7); EOS % 2.9 % (0.0-4.0); HEMOGLOBIN 12.9 g/dL (12.0-16.0); LYMPH # 2.3 K/uL (1.0-4.3); LYMPH % 18.8 % (20.0-40.0); MEAN CELL VOLUME 94.2 fl (81.0-99.0); MEAN CORPUSCULAR HEMOGLOBIN 31.9 pg (27.0-31.0); MEAN CORPUSCULAR HGB CONC 33.9 g/dL (33.0-37.0); MEAN PLATELET VOLUME 9.7 fl (7.2-11.7); MONO # 0.5 K/uL (0.0-0.8); MONO % 4.5 % (0.0-10.0); NEUT # 8.8 K/uL (1.8-7.0); NEUT % 73.5 % (50.0-75.0); RBC 4.04 Mil/uL (3.80-5.20); RED CELL DISTRIBUTION WIDTH 12.9 % (11.5-14.5)
[2017-10-27 04:14] LABS: ALB/GLOB RATIO 1.3 (1.0-2.1); ALBUMIN 3.7 g/dL (3.5-5.0); ALT/SGPT 13 U/L (9-52); AST/SGOT 16 U/L (14-36); BLOOD UREA NITROGEN 14 mg/dl (7-17); GFR AFRICAN-AMERICAN > 60; GFR NON-AFRICAN AMERICAN > 60
[2017-10-27 04:16] LABS: SQUAMOUS EPITHIAL 21 /hpf (0-5); URINE BACTERIA OCC (<OCC); URINE BILIRUBIN NEGATIVE (NEGATIVE); URINE BLOOD NEGATIVE (NEGATIVE); URINE CLARITY TURBID (Clear); URINE COLOR YELLOW (YELLOW); URINE GLUCOSE (UA) NEG (Normal); URINE LEUKOCYTE ESTERASE MOD Leu/uL (Negative); URINE PROTEIN 100 mg/dL (NEGATIVE); URINE UROBILINOGEN 0.2-1.0 mg/dL (0.2-1.0); WBC CLUMPS MANY /hpf
[2017-10-27 04:24] LABS: BARBITURATES, UR NEGATIVE (NEGATIVE); BENZODIAZEPINES, UR NEGATIVE (NEGATIVE); OPIATES, UR NEGATIVE (NEGATIVE); PHENCYCLIDINE, UR NEGATIVE (NEGATIVE)
[2017-10-27] MEDS ORDERED: DiphenhydrAMINE 50 mg/ml Inj IM PRN (05:15)
[2017-10-27] MEDS ORDERED: Magnesium Hydroxide Susp 30 ml UD PO PRN (05:15)
[2017-10-27 05:35] VITALS: RESP 18
--- NOTE | 2017-10-27 06:21 | PCM.BM ---
<Sheri Cotter C - Last Filed: 10/27/17 06:19> Treatment Plan Problems - Problems identified on initial assessmt Hopelessness/Helplessness Date Initiated: 10/27/17 Time Initiated: 06:19 Assessment reference: NA Status: Active Medication Non adherence Date Initiated: 10/27/17 Time Initiated: 06:20 Assessment reference: NA Status: Active Treatment assets and liabiliti Patient Assests: cooperative, ADL independent, physically healthy, negotiates basic needs, cognitively intact Patient Liabilities: live alone, financial problems, poor support system, relationship conflicts, substance abuse - Milieu Protocol Maintain good personal hygiene: daily Encourage regular showers, other Remind patient to perform daily oral care (prn), other Assist patient to perform ADL's (prn) Conduct patient checks and document Observation sheet: Q15 minutes Maintain personal safety: every shift Educate patient to report safety concerns to staff, every shift Monitor environment for contraband/sharps Medication safety: Monitor for expected outcome, potential side effects: every shift, Assess barriers to learning: every shift, Assess readiness for medication education: every shift <Linda Diamond - Last Filed: 10/31/17 14:47> Treatment Plan Problems - Problems identified on initial assessmt Hopelessness/Helplessness Date Initiated: 10/27/17 Time Initiated: 06:19 Assessment reference: NA Status: Active Medication Non adherence Date Initiated: 10/27/17 Time Initiated: 06:20 Assessment reference: NA Status: Active Anxiety Disorders Date Initiated: 10/30/17 Time Initiated: 14:14 Assessment reference: NA Status: Active - Diagnosis (1) Anxiety Status: Acute Interventions: psychotherapy pharmacotherapy 10/31/17 10:19
--- NOTE | 2017-10-27 07:56 | PCM.PSYCH ---
Initial Psychiatric Evaluation - Initial Psychiatric Evaluation Type of Admission: Voluntary Legal Status: Capacity Chief Complaint (in patient's own words): "I wanted to kill myself." Patient's Reaction to Hospitalization: HPI: 36 yo female presents w/ suicidal ideation w/ plan to overdose on pills and "shoot up heroin." She is irritable w/ freelance writer and discusses her frustration w/ being homeless and not being able to find out where her is. She reports feeling depressed, w/ sleep/appetite disturbances. She denies AH/VH/paranoia/delusions. PPHx: H/o multiple psychiatric admissions; no current outpatient psychiatric treatment; last treated w/ Zyprexa PMHx: Denies acute medical issues ALL: Aspirin SHx: Homeless, denies drug/etoh/cig use FHx: When asked about family history of mental illness she responded "yes, but I don't want to talk about it." Current Medications: Active Medications Generic Name Dose Route Start Last Admin Trade Name Freq PRN Reason Stop Dose Admin Acetaminophen 650 mg 10/27/17 05:15 Tylenol 325mg Tab PO Q4 PRN pain level 4-7 Diphenhydramine HCl 50 mg 10/27/17 05:15 Benadryl IM Q6 PRN Extrapyramidal S/S Unable PO Diphenhydramine HCl 50 mg 10/27/17 05:15 Benadryl PO Q6 PRN Extrapyramidal Symptoms Diphenhydramine HCl 50 mg 10/27/17 05:17 Benadryl PO HS PRN Sleep Haloperidol 5 mg 10/27/17 05:15 Haldol PO Q4 PRN Agitation Haloperidol Lactate 5 mg 10/27/17 05:15 Haldol IM Q4 PRN Agitation, Unable to Take PO Lorazepam 1 mg 10/27/17 05:15 Ativan IM Q8 PRN Anxiety/Agitation,Unable PO Lorazepam 1 mg 10/27/17 05:15 Ativan PO Q8 PRN Anxiety/Agitation Magnesium Hydroxide 30 ml 10/27/17 05:15 Milk Of Magnesia PO HS PRN Constipation Past Psychiatric History - Past Psychiatric History Previous Treatment History: Inpatient Pertinent Medical Hx (Current Medical&Sleep Prob, Allergies): Allergies Allergy/AdvReac Type Severity Reaction Status Date / Time aspirin AdvReac upset Verified 10/21/17 02:48 stomach No Known Home Med 10/18/17 Review of Systems - Psychiatric Psychiatric: As Per HPI, Abnormal Sleep Pattern, Anxiety, Change in Appetite, Depression, Difficulty Concentrating, Hopelessness, Irritability, Mood Swings, Suicidal Ideation Mental Status Examination - Personal Presentation Personal Presentation: Looks stated age - Affect Affect: Constricted, Other (Irritable) - Motor Activity Motor Activity: Calm - Reliability in Providing Information Reliability in Providing Information: Other (Poor; not cooperative w/ interview at times) - Speech Speech: Organized, Coherent - Mood Mood: Depressed - Formal Thought Process Formal Thought Process: No Impairment - Hallucinations/Delusions Additional comments: Denies AH/VH/paranoia/delusions - Obsessions/Compulsions Obsessions: No Compulsions: No - Cognitive Functions Orientation: Person, Place, Situation, Time Sensorium: Alert Attention/Concentration: Attentive Estimate of Intelligence: Average Judgement: Imparied, as evidence by: Poor judgement, Imparied, as evidence by: Lack of insight into illness Memory: Recent intact, as evidence by: Ability to recall events of the day - Risk Risk: Suicidal - Strength & Assets Inventory Strength & Assets Inventory: Life experience - Limitations Limitations: Other (Homelessness, Poverty) DSM 5 DX - DSM 5 DSM 5 Diagnosis: Bipolar Disorder - Recommended/Plan of Treatment Treatment Recommendations and Plan of Treatment: Bipolar Disorder -Admit to psychiatry unit -Restart Zyprexa -Individual and group therapy -Psychoeducation -Medicine consult -Disposition planning Projected ELOS: 5-7 days Discharge Plan and Discharge Criteria: Discharge when patient is psychiatrically stable - Smoking Cessation Smoking Cessation Initiated: No Reason for not providing: Not indicated
--- NOTE | 2017-10-27 09:32 | CARD ---
APPROVED REPORT Date of service: 10/27/2017 EKG Measurement Heart [id number] <Conclusion> Sinus rhythm with short SD Otherwise normal ECG
[2017-10-27 10:15] LABS: T4 5.86 ug/dl (5.5-11.0)
[2017-10-27 10:28] LABS: T3 0.815 nmol/L (1.49-2.60)
[2017-10-27 21:32] LABS: SQUAMOUS EPITHIAL 11 /hpf (0-5); URINE BACTERIA RARE (<OCC); URINE BILIRUBIN NEGATIVE (NEGATIVE); URINE BLOOD NEGATIVE (NEGATIVE); URINE CLARITY TURBID (Clear); URINE COLOR YELLOW (YELLOW); URINE GLUCOSE (UA) NEG (Normal); URINE LEUKOCYTE ESTERASE MOD Leu/uL (Negative); URINE PROTEIN 100 mg/dL (NEGATIVE); URINE UROBILINOGEN 0.2-1.0 mg/dL (0.2-1.0); WBC CLUMPS MANY /hpf
--- NOTE | 2017-10-28 09:00 | PCM.PYCHPN ---
Psychiatric Progress Note - Psychiatric Progress Note Patient seen today, length of contact: Patient evaluated, case discussed w/ team , chart reviewed Patient Chief Complaint: "I wanted to kill myself." Problems Identified/Issues Discussed: Patient continues to report feeling depressed w/ sleep/appetite disturbances. Patient was encourage to get out of bed and shower. She has low motivation and energy. Denies acute AH/VH/SI/HI. Medication Change: No Medical Record Reviewed: Yes Consults ordered or reviewed: Medicine consult Mental Status Examination - Cognitive Function Orientation: Person, Place, Situation, Time Memory: Intact Attention: WNL Concentration: WNL Association: WN Fund of Knowledge: [facility] Decription of patient's judgement and insights: Poor I/J - Mood Mood: Depressed - Affect Affect: Constricted, Other (Irritable) - Formal Thought Process Formal Thought Process: No Impairment Psychotic Thoughts and Behaviors: Denies acute AH/VH/paranoia/delusions - Suicidal Ideation Suicidal Ideation: No - Homicidal Ideation Homicidal Ideation: No Goal/Treatment Plan - Goal/Treatment Plan Need for Continued Stay: Remain at risks for inpatient hospitalization, Severe depression anxiety, Discharge may exacerbated symptoms Progress Toward Problem(s) and Goals/Treatment Plan: Bipolar Disorder -Continue Zyprexa -Individual and group therapy -Psychoeducation -Medicine consult -Disposition planning Estimated Date of D/C: 11/02/17
--- NOTE | 2017-10-28 15:38 | CON ---
Copied To: Zi Butler MD Attending MD: Zi Butler MD DATE: 10/28/2017 The patient seen and examined in the adult psych unit. CHIEF COMPLAINT: Feeling severely depressed with possible suicidal ideation. HISTORY OF PRESENT ILLNESS: This is 36-year-old female known case of elevated cholesterol, who was having some social issues. Recently, the patient felt very bad and depressed and was brought to emergency room and was admitted for further management. Review of system is positive for psychiatric issues. Review of system otherwise is negative for headache, dizziness, syncope, loss of consciousness, chest pain, shortness of breath, nausea, vomiting, diarrhea, and constipation, any new joint or extremity pain. Review of systems specifically negative for urinary symptoms. PAST MEDICAL HISTORY: Significant for depression and elevated cholesterol. PAST SURGICAL HISTORY: Unremarkable. PERSONAL HISTORY: The patient has a history of substance abuse, alcohol abuse, and smoking. ALLERGIES: THE PATIENT IS NOT ALLERGIC TO ANY MEDICATIONS. MEDICATIONS: The patient is not on any medications. The patient was supposed to be on Zyprexa, but was very noncompliant. FAMILY HISTORY: Noncontributory. PHYSICAL EXAMINATION: GENERAL: Well-built, well-nourished 36-year-old female, in no acute distress. VITAL SIGNS: Temperature afebrile, pulse 80, respirations 18, and blood pressure 136/76. HEENT: Pupils reacting to light. No JVD. No thyromegaly. No lymphadenopathy. No nystagmus. Normocephalic, atraumatic skull. HEART: S1 and S2. Normal and regular. No significant murmur, gallop, or rub is heard. LUNGS: Good bilateral air exchange. No rales or rhonchi. ABDOMEN: Soft and nontender. No organomegaly. No fluids. Bowel sounds are plus and normal. EXTREMITIES: No edema. No calf swelling. No tenderness. No acute ischemia. RN PATIENT SERVICES: The patient is withdrawn, but there is no sign of any acute focal motor or sensory neurological deficit. The patient with marked depression also has medical issues of elevated cholesterol. DIAGNOSTIC DATA: Available diagnostic data reviewed. Urinalysis is positive for leucocytes with nitrites is 92. Other lab data are acceptable. Cholesterol is also elevated upto 25. ADMITTING IMPRESSION: Elevated cholesterol, possible urinary tract infection in this 36-year-old female, who was admitted for depression. Plan as ordered. Case and plan discussed with psychiatry. Zi Butler MD : 10/28/2017 9:10:07
--- NOTE | 2017-10-29 13:12 | PN ---
Copied To: Zi Butler MD Attending MD: Zi Butler MD DATE: 10/29/2017 SUBJECTIVE: The patient is seen and examined. Interim events noted. The patient remains in psych unit. Denies any specific medical complaint. No specific issue reported by nursing staff. Psychiatry followup and intervention noted and appreciated. Case discussed with the patient. PHYSICAL EXAMINATION: GENERAL: The patient is in no acute distress. VITAL SIGNS: Stable. Physical exam in essentially unchanged. ASSESSMENT AND PLAN: Overall, the patient is medically stable. Plan as ordered. Zi Butler MD
--- NOTE | 2017-10-29 15:07 | PCM.PYCHPN ---
Psychiatric Progress Note - Psychiatric Progress Note Patient seen today, length of contact: Patient evaluated, case discussed w/ team , chart reviewed Patient Chief Complaint: I feel edgy and irritable Problems Identified/Issues Discussed: pt on evaluation presenting with irritable mood and affect reported feeling edgy and angry, relates that to her current living situation and previous non compliance with medications, discussed with pt increasing dose of zyprexa to 10mg bid encouraged pt to attend groups and participate in treatment pt denied nay current suicidal or homicidal ideation denied perceptual disturbances DSM 5 Symptoms Update: bipolar disorder mixed Medication Change: Yes (start zyprexa 10mg daily) Medical Record Reviewed: Yes Mental Status Examination - Cognitive Function Orientation: Person, Place, Situation, Time Memory: Intact Attention: WNL Concentration: WNL Association: WNL Fund of Knowledge: WNL - Mood Mood: Depressed, Anxious - Affect Affect: Constricted, Other (Irritable) Additional comments: angry , irritable - Speech Speech: Loud - Formal Thought Process Formal Thought Process: No Impairment Psychotic Thoughts and Behaviors: pt denied perceptual disturbances, non elicited - Suicidal Ideation Suicidal Ideation: No - Homicidal Ideation Homicidal Ideation: No Goal/Treatment Plan - Goal/Treatment Plan Need for Continued Stay: Remain at risks for inpatient hospitalization, Severe depression anxiety, Discharge may exacerbated symptoms Progress Toward Problem(s) and Goals/Treatment Plan: increase zyprexa to 10mg bid monitor for psychopharmacological effects and side effect profile CBT group and supportive therapy Estimated Date of D/C: 11/02/17
--- NOTE | 2017-10-30 13:04 | PN ---
Copied To: Zi Butler MD Attending MD: Zi Butler MD DATE: 10/30/2017 SUBJECTIVE: The patient is seen and examined. Interim events noted. Psychiatric followup and intervention noted and appreciated. The patient remains in adult psych unit, and is awake, responsive. Denies any specific medical complaints . PHYSICAL EXAMINATION: GENERAL: The patient is in no acute distress. VITAL SIGNS: Stable. Physical exam is essentially unchanged. DIAGNOSTIC DATA: Available diagnostic data reviewed. ASSESSMENT AND PLAN: Overall, the patient's general medical condition is stable. Plan as ordered. Zi Butler MD
--- NOTE | 2017-10-30 13:31 | PCM.PYCHPN ---
Psychiatric Progress Note - Psychiatric Progress Note Patient seen today, length of contact: Patient evaluated, case discussed w/ team , chart reviewed Patient Chief Complaint: I feel tired with the morning medications Problems Identified/Issues Discussed: pt on evaluation, reported feeling less edgy, affect less irritable , pt however reported feeling sedated with the 10mg zyprexa in AM , discussed reducing to 5mg encouraged pt to participate in treatment and attend groups pt denied nay current suicidal or homicidal ideation denied perceptual disturbances DSM 5 Symptoms Update: bipolar disorder Medication Change: Yes (decrease zyprexa to 15mg ) Medical Record Reviewed: Yes Mental Status Examination - Cognitive Function Orientation: Person, Place, Situation, Time Memory: Intact Attention: WNL Concentration: WNL Association: WNL Fund of Knowledge: WNL - Mood Mood: Depressed, Anxious - Affect Affect: Constricted Additional comments: irritable, edgy - Speech Speech: Loud - Formal Thought Process Formal Thought Process: No Impairment Psychotic Thoughts and Behaviors: pt denied perceptual disturbances, non elicited - Suicidal Ideation Suicidal Ideation: No - Homicidal Ideation Homicidal Ideation: No Goal/Treatment Plan - Goal/Treatment Plan Need for Continued Stay: Remain at risks for inpatient hospitalization, Severe depression anxiety, Discharge may exacerbated symptoms Progress Toward Problem(s) and Goals/Treatment Plan: decrease zyprexa 5mg qam and 10mg qhs monitor for psychopharmacological effects and side effect profile CBT group and supportive therapy Estimated Date of D/C: 11/02/17
--- NOTE | 2017-10-30 14:15 | PCM.BM ---
Treatment Plan Problems - Problems identified on initial assessmt Hopelessness/Helplessness Date Initiated: 10/27/17 Time Initiated: 06:19 Assessment reference: NA Status: Active Medication Non adherence Date Initiated: 10/27/17 Time Initiated: 06:20 Assessment reference: NA Status: Active Anxiety Disorders Date Initiated: 10/30/17 Time Initiated: 14:14 Assessment reference: NA Status: Active Treatment assets and liabiliti Patient Assests: cooperative, ADL independent, physically healthy, negotiates basic needs, cognitively intact Patient Liabilities: live alone, financial problems, poor support system, relationship conflicts, substance abuse - Milieu Protocol Maintain good personal hygiene: daily Encourage regular showers, other Remind patient to perform daily oral care (prn), other Assist patient to perform ADL's (prn) Conduct patient checks and document Observation sheet: Q15 minutes Maintain personal safety: every shift Educate patient to report safety concerns to staff, every shift Monitor environment for contraband/sharps Medication safety: Monitor for expected outcome, potential side effects: every shift, Assess barriers to learning: every shift, Assess readiness for medication education: every shift Milieu Narrative: decrease zyprexa 5mg qam and 10mg qhs monitor for psychopharmacological effects and side effect profile CBT group and supportive therapy Discharge/Continuing Care - Treatment Team Participation Patient/Family/SO Statement: decrease zyprexa 5mg qam and 10mg qhs monitor for psychopharmacological effects and side effect profile CBT group and supportive therapy
[2017-10-30 19:05] VITALS: BP 122/72; PULSE 98; TEMP 97.1
--- NOTE | 2017-10-31 10:47 | PCM.PYCHDC ---
Mental Status Examination - Mental Status Examination Orientation: Person, Place, Situation Memory: Intact Mood: Neutral Affect: Broad Speech: Appropriate Attention: WNL Concentration: WNL Association: WNL Fund of Knowledge: WNL Formal Thought Process: No Impairment Description of patient's judgement and insight: partial insight , poor judgment Psychotic Thoughts and Behaviors: pt denied perceptual disturbances, non elicited Suicidal Ideation: No Current Homicidal Ideation?: No Discharge Summary - Discharge Note Reason for Hospitalization: 36 yo female presents w/ suicidal ideation w/ plan to overdose on pills and "shoot up heroin." She is irritable w/ junior underwriter and discusses her frustration w / being homeless and not being able to find out where her is. She reports feeling depressed, w/ sleep/appetite disturbances. She denies AH/VH/ paranoia/delusions. Consultations:: List each consultation separately and include: 1. Reason for request. 2. Findings. 3. Follow-up Summary of Hospital Course include:: 1. Description of specific treatment plan utilized for patients during their course of treatmen. 2. Summarize the time- course for resolution of acute symptoms and/or regressed behaviors. 3. Describe issues identified and worked on during hospitalization. 4. Describe medication utilized. 5. Describe medical problems identified and treated. 6. Reassessment of suicide risk Summary of Hospital Course: pt on admission presented with anxious depressed mood, irritable affect, pt was started on zyprexa, it was up titrated to 15mg daily CBT , group and supportive therapy provided pt was compliant with treatment , no reported side effects on discharge, mental status was stable, pt denied any current suicidal or homicidal ideation, denied perceptual disturbances follow up arranged by older adult social work specialist at [facility] outpatient clinic/ [facility] program - Diagnosis (1) Anxiety Current Visit: No Status: Acute - Final Diagnosis (DSM 5) Condition upon Discharge: FAIR DSM 5: bipolar disorder depressed Disposition: HOME/ ROUTINE Follow-up Treatment Plan: decrease zyprexa 5mg qam and 10mg qhs monitor for psychopharmacological effects and side effect profile CBT group and supportive therapy Prescriptions/Medication Reconciliation: OLANZapine [Zyprexa] 5 mg PO DAILY 30 Days #30 tab OLANZapine [Zyprexa] 10 mg PO HS 30 Days #30 tab - Smoking Cessation Smoking Cessation Medication prescribed: No - Antipsychotic Medications Pt discharged on 2 or more routine antipsychotic medications: No
== END 2017-10-31 12:25 | disposition home or self-care (01) | DRG 885 ==
LOC: H.ER 00:33 → H.ERHOLD 04:30 → H.PSYCH 05:11
PROVIDERS: ADMIT Psychiatry & Neurology Psychiatry; ATTEND Psychiatry & Neurology Psychiatry
PROC: GZHZZZZ Group Psychotherapy (ICD-10-PCS; principal; 2017-10-27)
PROC: GZ51ZZZ Individual Psychotherapy, Behavioral (ICD-10-PCS; 2017-10-27)
DX: F31.60 Bipolar disorder, current episode mixed, unspecified (principal); R45.851 Suicidal ideations; F41.9 Anxiety disorder, unspecified; Z59.0 Homelessness; Z81.8 Family history of other mental and behavioral disorders; Z91.14 Patient's other noncompliance with medication regimen; F10.10 Alcohol abuse, uncomplicated; E78.00 Pure hypercholesterolemia, unspecified; F20.9 Schizophrenia, unspecified

== ENCOUNTER 2018-02-06 16:02 | Emergency (ER) | payer MEDICAID ==
[2018-02-06 16:02] VITALS: BMI 22.4
[2018-02-06 16:44] VITALS: BP 122/78; PULSE 96; RESP 18; TEMP 98.6; O2SAT 98
== END 2018-02-06 17:05 | disposition left against medical advice (07) ==
LOC: H.ER 16:02
DX: Z02.89 Encounter for other administrative examinations (principal)

== ENCOUNTER 2018-02-07 14:09 | Emergency (ER) | payer MEDICAID ==
[2018-02-07 14:10] VITALS: BMI 22.4
[2018-02-07 14:20] VITALS: BP 107/69; PULSE 80; RESP 16; TEMP 98.6; O2SAT 100
--- NOTE | 2018-02-07 15:51 | ED PDOC ---
HPI: Female Pain Time Seen by Provider: 02/07/18 15:01 Chief Complaint (Nursing): Female Genitourinary Chief Complaint (Provider): Female Genitourinary History Per: Patient History/Exam Limitations: no limitations Additional Complaint(s): 37 y/o female presents to the ED complaining of possible UTI. Patient reports that a month ago she got antibiotics for a UTI. She states she tried to follow up with her [employer] who she sees through her PMD but he is no longer at the office. Patient reports having frequency but does not mention vaginal discharge on review of system however did complain of vaginal discharge in triage. Patient additionally complains of dental pain for the past month. She was supposed to see her dentist but he wasn't there last week; she has appointment to see dentist next week. Past Medical History Reviewed: Historical Data, Nursing Documentation, Vital Signs Vital Signs: Last Vital Signs Temp 98.6 F 02/07/18 14:20 Pulse 80 02/07/18 14:20 Resp 16 02/07/18 14:20 BP 107/69 02/07/18 14:20 Pulse Ox 100 02/07/18 14:20 - Medical History PMH: Anxiety, Bipolar Disorder, Depression, Hypercholesterolemia, Schizophrenia Denies: Diabetes, Hepatitis, HIV, HTN, Chronic Kidney Disease, Seizures, Sexually Transmitted Disease - Surgical History Surgical History: (x3) - Family History Family History: States: Unknown Family Hx - Immunization History Hx Tetanus Toxoid Vaccination: No Hx Influenza Vaccination: No Hx Pneumococcal Vaccination: No - Home Medications Home Medications: Ambulatory Orders Medication Instructions Recorded Acetaminophen [Acetaminophen 8 650 mg PO Q8 PRN #21 tablet.er 12/23/17 Hour] Amoxicillin/Clavulanate [Augmentin 1 tab PO BID #14 tab 12/23/17 875 MG-125 MG Tab] Nitrofurantoin Macrocrystals 100 mg PO Q12 4 Days #8 cap 01/18/18 [Macrobid] OLANZapine [Zyprexa] 10 mg PO HS 30 Days #30 tab 01/18/18 Olanzapine [Zyprexa] 5 mg PO DAILY 30 Days #30 tablet 01/18/18 Penicillin VK [Penicillin VK Tab] 500 mg PO BID #14 tab 01/25/18 oxyCODONE/Acetaminophen [Percocet 1 ea PO Q6 PRN #7 tab 01/25/18 5/325 mg Tab] Acetaminophen [Athenol] 650 mg PO Q6H #10 tablet 02/07/18 Amoxicillin/Clavulanate [Augmentin 1 tab PO BID #20 tab 02/07/18 875 MG-125 MG] - Allergies Allergies/Adverse Reactions: Allergies Allergy/AdvReac Type Severity Reaction Status Date / Time aspirin AdvReac upset Verified 01/14/18 23:18 stomach Review of Systems ROS Statement: Except As Marked, All Systems Reviewed And Found Negative ENT: Positive for: Other (tooth pain) Genitourinary Female: Positive for: Frequency. Negative for: Vaginal Discharge (denies on ROS but reports in triage) Physical Exam - Reviewed Nursing Documentation Reviewed: Yes Vital Signs Reviewed: Yes - Physical Exam Appears: Positive for: Non-toxic, No Acute Distress Head Exam: Positive for: ATRAUMATIC, NORMOCEPHALIC Skin: Positive for: Normal Color, Warm, DRY Eye Exam: Positive for: EOMI, Normal appearance, PERRL ENT: Positive for: Other (dental fracture) Cardiovascular/Chest: Positive for: Regular Rate, Rhythm. Negative for: Murmur, Bradycardia, Tachycardia Respiratory: Positive for: Normal Breath Sounds. Negative for: Respiratory Distress Gastrointestinal/Abdominal: Positive for: Normal Exam, Soft. Negative for: Tenderness Extremity: Positive for: Normal ROM. Negative for: Pedal Edema, Deformity Neurologic/Psych: Positive for: Alert, Oriented. Negative for: Motor/Sensory Deficits - ECG O2 Sat by Pulse Oximetry: 100 (RA) Pulse Ox Interpretation: Normal Medical Decision Making Medical Decision Making: Time: 15:30 Initial Impression: possible UTI Initial Plan: * ED urine preg * ED Urine dip * Chlamydia/GC RNA, TMA * Urine culture Pt denies vaginal discharge in ER. Pt did mention discharge in note. [facility] Scribe Attestation: Documented by Devaughn Walker, acting as a scribe for Rachel Greco PA-C. Provider Scribe Attestation: All medical record entries made by the Scribe were at my direction and personally dictated by me. I have reviewed the chart and agree that the record accurately reflects my personal performance of the history, physical exam, medical decision making, and the department course for this patient. I have also personally directed, reviewed, and agree with the discharge instructions and disposition. Disposition - Clinical Impression Clinical Impression: Dysuria - Patient ED Disposition Is Patient to be Admitted: No Counseled Patient/Family Regarding: Diagnosis, Need For Followup, Rx Given - Disposition [facility] Disposition: Routine/Home Disposition Time: 15:49 Condition: GOOD Prescriptions: Acetaminophen [Athenol] 650 mg PO Q6H #10 tablet Amoxicillin/Clavulanate [Augmentin 875 MG-125 MG] 1 tab PO BID #20 tab Instructions: Dysuria, Adult (DC) Forms: [facility] (Serbian)
== END 2018-02-07 16:15 | disposition home or self-care (01) ==
LOC: H.ER 14:09
DX: R30.0 Dysuria (principal); N39.0 Urinary tract infection, site not specified

== ENCOUNTER 2018-03-14 20:34 | Emergency (ER) | payer MEDICAID ==
[2018-03-14 20:34] VITALS: BMI 22.4
[2018-03-14 21:05] VITALS: BP 136/92; PULSE 80; RESP 16; TEMP 98.6; O2SAT 100
== END 2018-03-14 23:00 | disposition left against medical advice (07) ==
LOC: H.ER 20:34
DX: Z02.89 Encounter for other administrative examinations (principal)

== ENCOUNTER 2018-03-15 11:07 | Emergency (ER) | payer MEDICAID ==
[2018-03-15 11:07] VITALS: BMI 22.4
[2018-03-15 11:38] VITALS: O2SAT 99
--- NOTE | 2018-03-15 12:09 | ED PDOC ---
HPI: Female Pain Time Seen by Provider: 03/15/18 12:05 Chief Complaint (Provider): Vaginal Bleeding History Per: Patient History/Exam Limitations: no limitations Onset/Duration Of Symptoms: Days (three), Persistent Current Symptoms Are (Timing): Still Present Severity: Moderate Quality Of Discomfort: Unable To Describe Alleviating Factors: None (Pt presents to the ED with a complaint of significant and extreme vaginal bleeding since this morning. She indicates that she is on her period as of three days ago and it is never as heavy as it is now. Pt had a tubal ligation three years ago. Pt deneis pain, tenderness, cramping or the like. ) Abnormal Vaginal Bleeding: Yes Last Menstral Period: current : 0 Past Medical History Reviewed: Historical Data, Nursing Documentation, Vital Signs Vital Signs: Last Vital Signs Temp 98 F 03/15/18 11:36 Pulse 98 H 03/15/18 11:36 Resp 20 03/15/18 11:36 BP 127/87 03/15/18 11:36 Pulse Ox 99 03/15/18 11:36 - Medical History PMH: Anxiety, Bipolar Disorder, Depression, Hypercholesterolemia, Schizophrenia Denies: Diabetes, Hepatitis, HIV, HTN, Chronic Kidney Disease, Seizures, Sexually Transmitted Disease - Surgical History Surgical History: (x3) - Family History Family History: States: Unknown Family Hx - Immunization History Hx Tetanus Toxoid Vaccination: No Hx Influenza Vaccination: No Hx Pneumococcal Vaccination: No - Home Medications Home Medications: Ambulatory Orders Medication Instructions Recorded RX: Acetaminophen [Acetaminophen 8 650 mg PO Q8 PRN #21 tablet.er 12/23/17 Hour] RX: Amoxicillin/Clavulanate 1 tab PO BID #14 tab 12/23/17 [Augmentin 875 MG-125 MG Tab] RX: Nitrofurantoin Macrocrystals 100 mg PO Q12 4 Days #8 cap 01/18/18 [Macrobid] RX: OLANZapine [Zyprexa] 10 mg PO HS 30 Days #30 tab 01/18/18 RX: Olanzapine [Zyprexa] 5 mg PO DAILY 30 Days #30 tablet 01/18/18 RX: Penicillin VK [Penicillin VK 500 mg PO BID #14 tab 01/25/18 Tab] oxyCODONE/Acetaminophen [Percocet 1 ea PO Q6 PRN #7 tab 11/16/18 5/325 mg Tab] Amoxicillin/Clavulanate [Augmentin 1 tab PO BID #20 tab 02/07/18 875 MG-125 MG] RX: Acetaminophen [Athenol] 650 mg PO Q6H #10 tablet 02/07/18 RX: Tranexamic Acid 1,300 mg PO TID #30 tablet 03/15/18 - Allergies Allergies/Adverse Reactions: Allergies Allergy/AdvReac Type Severity Reaction Status Date / Time aspirin AdvReac upset Verified 03/14/18 21:02 stomach Review of Systems ROS Statement: Except As Marked, All Systems Reviewed And Found Negative Constitutional: Negative for: Fever, Chills, Sweats Eyes: Negative for: Pain Genitourinary Female: Positive for: Vaginal Bleeding Physical Exam - Reviewed Nursing Documentation Reviewed: Yes Vital Signs Reviewed: Yes - Physical Exam Appears: Positive for: Well, No Acute Distress, Uncomfortable Head Exam: Positive for: ATRAUMATIC, NORMAL INSPECTION Skin: Positive for: Normal Color, Warm, Dry. Negative for: Diaphoresis, Pallor, Rash Eye Exam: Positive for: Normal appearance Neck: Positive for: Normal, Painless ROM, Supple. Negative for: Decreased ROM Cardiovascular/Chest: Positive for: Regular Rate, Rhythm Respiratory: Positive for: Normal Breath Sounds Pulses-Carotid (L): 2+ Pulses-Carotid (R): 2+ Pulses-Radial (L): 2+ Pulses-Radial (R): 2+ Gastrointestinal/Abdominal: Positive for: Normal Exam, Bowel Sounds (positve in all four quadrants), Soft. Negative for: Tenderness, Distended, Guarding, Rebound Pelvic Exam: Positive for: External Exam Normal, Speculum Exam Normal, No Cerv. Motion Tender, No Masses, Active Bleeding, Blood. Negative for: Discharge, Lesions, Tender W/Cervical Motion Back: Positive for: Normal Inspection. 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 Pt given a rx for Tranexenic acid AMA form prepared pt left prior to signing form or taking rx Pt is stable hemodynamicallyprior to dc Disposition - Clinical Impression Clinical Impression: Vaginal bleeding - Patient ED Disposition Is Patient to be Admitted: No Doctor Will See Patient In The: Office Counseled Patient/Family Regarding: Studies Performed, Diagnosis, Need For Followup, Rx Given - Disposition Referrals: [facility] [Outside] [facility] [Outside] Disposition: Left W/O Treatment Disposition Time: 17:57 Condition: STABLE Prescriptions: RX: Tranexamic Acid 1,300 mg PO TID #30 tablet Forms: [employer] (Slovenian)
[2018-03-15] MEDS ORDERED: Sodium Chloride 0.9% 1,000 ML IV ONE (12:30)
[2018-03-15 13:33] LABS: BASO % 0.7 % (0.0-2.0); EOS # 0.3 K/uL (0.0-0.7); HEMOGLOBIN 10.7 g/dL (12.0-16.0); LYMPH # 1.4 K/uL (1.0-4.3); LYMPH % 18.3 % (20.0-40.0); MEAN CELL VOLUME 93.8 fl (81.0-99.0); MEAN CORPUSCULAR HEMOGLOBIN 31.6 pg (27.0-31.0); MEAN CORPUSCULAR HGB CONC 33.6 g/dL (33.0-37.0); MEAN PLATELET VOLUME 10.1 fl (7.2-11.7); MONO # 0.4 K/uL (0.0-0.8); MONO % 5.2 % (0.0-10.0); NEUT # 5.4 K/uL (1.8-7.0); NEUT % 71.8 % (50.0-75.0); NRBC % 0.1 % (0.0-0.0); RBC 3.39 Mil/uL (3.80-5.20); RED CELL DISTRIBUTION WIDTH 12.7 % (11.5-14.5); WHITE BLOOD COUNT 7.5 K/uL (4.8-10.8)
[2018-03-15 13:45] LABS: ALB/GLOB RATIO 1.2 (1.0-2.1); ALBUMIN 3.7 g/dL (3.5-5.0); ALT/SGPT 24 U/L (9-52); AST/SGOT 19 U/L (14-36); BLOOD UREA NITROGEN 14 mg/dl (7-17); CALCIUM 8.6 mg/dL (8.4-10.2); GFR NON-AFRICAN AMERICAN > 60
[2018-03-15 14:22] LABS: SQUAMOUS EPITHIAL 11 /hpf (0-5); URINE BILIRUBIN NEGATIVE (NEGATIVE); URINE BLOOD LARGE (NEGATIVE); URINE CLARITY TURBID (Clear); URINE COLOR RED (YELLOW); URINE GLUCOSE (UA) 50 mg/dL (NEGATIVE); URINE PROTEIN 100 mg/dL (NEGATIVE); URINE UROBILINOGEN 0.2-1.0 mg/dL (0.2-1.0)
[2018-03-15 14:31] LABS: URINE LEUKOCYTE ESTERASE SMALL Leu/uL (Negative)
--- NOTE | 2018-03-15 15:40 | US ---
Date of service: 03/15/2018 HISTORY: heavy vaginal bleedng COMPARISON: None available. TECHNIQUE: Transvaginal pelvic ultrasound was performed with longitudinal and transverse images submitted for interpretation. FINDINGS: UTERUS: Measures 6.0 x 4.4 x 3.3 cm. Normal in size and appearance, anteverted. Although no cystic or solid myometrial masses identified. Myometrium appears diffusely heterogeneous in overall echotexture without focal pathological finding identified nevertheless. ENDOMETRIUM: Measures 2.0 mm in diameter. Unremarkable. CERVIX: No cervical abnormality identified. RIGHT OVARY: Measures 2.2 x 1.9 x 1.5 cm. No solid mass. Normal flow. Small scattered follicles identified. LEFT OVARY: Measures 3.2 x 3.0 x 2.3 cm. No solid mass. Normal flow. Small scattered follicles identified. FREE FLUID: Trace physiologic fluid noted in the cul-de-sac. OTHER FINDINGS: None. IMPRESSION: Heterogeneous but nonfocal myometrial echotexture with unremarkable appearing endometrium. No distinct myometrial cyst or mass identifiable at this time. Unremarkable bilateral adnexal compartments. No sonographic evidence to suggest ovarian torsion bilaterally.
[2018-03-15 17:57] VITALS: BP 122/68; PULSE 94; RESP 16; TEMP 98
== END 2018-03-15 17:58 | disposition left against medical advice (07) ==
LOC: H.ER 11:07
DX: N93.9 Abnormal uterine and vaginal bleeding, unspecified (principal); Z86.59 Personal history of other mental and behavioral disorders; E78.00 Pure hypercholesterolemia, unspecified
CPT/HCPCS: 76830; 80053; 81003; 81025; 85025; 96360; 99284; J7030

== ENCOUNTER 2018-04-05 23:23 | Emergency (ER) | payer MEDICAID ==
[2018-04-05 23:23] VITALS: BMI 22.4
--- NOTE | 2018-04-06 00:11 | ED PDOC ---
HPI: Psych/Substance Abuse Time Seen by Provider: 04/05/18 23:30 Chief Complaint (Nursing): Alcohol Ingestion Chief Complaint (Provider): Alcohol Ingestion ED Caveat: Intoxicated History Per: Patient History/Exam Limitations: intoxication Modifying Factor(s): Alcohol Additional Complaint(s): 37 y/o female was brought to the ED by EMS for alcohol intoxication. Patient was found intoxicated. Patient admits to drinking but is answering all questions. Denies any medical complaints at this time. Past Medical History Vital Signs: Last Vital Signs Temp 98.3 F 04/05/18 23:30 Pulse 93 H 04/05/18 23:30 Resp 18 04/05/18 23:30 BP 143/77 04/05/18 23:30 Pulse Ox 100 04/05/18 23:30 - Medical History PMH: Anxiety, Bipolar Disorder, Depression, Hypercholesterolemia, Schizophrenia Denies: Diabetes, Hepatitis, HIV, HTN, Chronic Kidney Disease, Seizures, Sexually Transmitted Disease - Surgical History Surgical History: (x3) - Family History Family History: States: Unknown Family Hx - Immunization History Hx Tetanus Toxoid Vaccination: No Hx Influenza Vaccination: No Hx Pneumococcal Vaccination: No - Home Medications Home Medications: Ambulatory Orders Medication Instructions Recorded Acetaminophen [Acetaminophen 8 650 mg PO Q8 PRN #21 tablet.er 12/23/17 Hour] Amoxicillin/Clavulanate [Augmentin 1 tab PO BID #14 tab 12/23/17 875 MG-125 MG Tab] Nitrofurantoin Macrocrystals 100 mg PO Q12 4 Days #8 cap 01/18/18 [Macrobid] OLANZapine [Zyprexa] 10 mg PO HS 30 Days #30 tab 01/18/18 Olanzapine [Zyprexa] 5 mg PO DAILY 30 Days #30 tablet 01/18/18 Penicillin VK [Penicillin VK Tab] 500 mg PO BID #14 tab 01/25/18 oxyCODONE/Acetaminophen [Percocet 1 ea PO Q6 PRN #7 tab 01/25/18 5/325 mg Tab] Acetaminophen [Athenol] 650 mg PO Q6H #10 tablet 02/07/18 Amoxicillin/Clavulanate [Augmentin 1 tab PO BID #20 tab 02/07/18 875 MG-125 MG] Tranexamic Acid 1,300 mg PO TID #30 tablet 03/15/18 - Allergies Allergies/Adverse Reactions: Allergies Allergy/AdvReac Type Severity Reaction Status Date / Time aspirin AdvReac upset Verified 04/05/18 23:30 stomach Review of Systems Review Of Systems: ROS cannot be obtained secondary to pt's inabilty to answer questions. Physical Exam - Reviewed Nursing Documentation Reviewed: Yes Vital Signs Reviewed: Yes - Physical Exam Appears: Positive for: Well, Non-toxic, No Acute Distress Head Exam: Positive for: ATRAUMATIC, NORMAL INSPECTION, NORMOCEPHALIC Skin: Positive for: Normal Color, Warm, DRY Eye Exam: Positive for: EOMI, Normal appearance, PERRL Neck: Positive for: Normal, Painless ROM Cardiovascular/Chest: Positive for: Regular Rate, Rhythm Respiratory: Positive for: CNT, Normal Breath Sounds Gastrointestinal/Abdominal: Positive for: Normal Exam, Soft Back: Positive for: Normal Inspection Extremity: Positive for: Normal ROM. Negative for: Pedal Edema, Deformity Neurologic/Psych: Positive for: Alert, Oriented, Gait (unsteady). Negative for: Motor/Sensory Deficits, Aphasia (slurred speech) - ECG O2 Sat by Pulse Oximetry: 100 (RA) Pulse Ox Interpretation: Normal - Progress Re-evaluation Time: 02:47 Condition: Re-examined, Improved Medical Decision Making Medical Decision Making: Time: 23:30 Initial Impression: alcohol intoxication Initial Plan: --Observe --Reassess Scribe Attestation: Documented by Devaughn Walker acting as a scribe for Milton Herman MD. Provider Scribe Attestation: All medical record entries made by the Scribe were at my direction and personally dictated by me. I have reviewed the chart and agree that the record accurately reflects my personal performance of the history, physical exam, medical decision making, and the department course for this patient. I have also personally directed, reviewed, and agree with the discharge instructions and disposition. Disposition - Clinical Impression Clinical Impression: Alcohol abuse with intoxication - Patient ED Disposition Is Patient to be Admitted: No Doctor Will See Patient In The: Office Counseled Patient/Family Regarding: Studies Performed, Diagnosis, Need For Followup - Disposition Disposition: Routine/Home Disposition Time: 02:47 Condition: GOOD Instructions: Alcohol Use - When Is Drinking a Problem?
[2018-04-06 03:46] VITALS: BP 137/81; PULSE 89; RESP 16; TEMP 98.4; O2SAT 98
== END 2018-04-06 03:46 | disposition home or self-care (01) ==
LOC: H.ER 23:23
DX: F10.129 Alcohol abuse with intoxication, unspecified (principal); Z86.59 Personal history of other mental and behavioral disorders; E78.00 Pure hypercholesterolemia, unspecified; Z88.6 Allergy status to analgesic agent

== ENCOUNTER 2018-04-24 17:37 | Emergency (ER) | payer MEDICAID ==
[2018-04-24 17:38] VITALS: BMI 22.4
[2018-04-24 18:17] VITALS: TEMP 98.3
[2018-04-24] MEDS ORDERED: Sodium Chloride 0.9% 1,000 ML IV STA (19:31)
[2018-04-24 20:38] LABS: BASO % 0.4 % (0.0-2.0); EOS # 0.2 K/uL (0.0-0.7); EOS % 1.3 % (0.0-4.0); HEMOGLOBIN 10.2 g/dL (12.0-16.0); LYMPH # 1.8 K/uL (1.0-4.3); LYMPH % 14.8 % (20.0-40.0); MEAN CELL VOLUME 88.2 fl (81.0-99.0); MEAN CORPUSCULAR HGB CONC 31.8 g/dL (33.0-37.0); MEAN PLATELET VOLUME 9.4 fl (7.2-11.7); MONO # 0.5 K/uL (0.0-0.8); NEUT # 9.8 K/uL (1.8-7.0); NEUT % 79.5 % (50.0-75.0); RBC 3.62 Mil/uL (3.80-5.20); RED CELL DISTRIBUTION WIDTH 13.6 % (11.5-14.5); WHITE BLOOD COUNT 12.3 K/uL (4.8-10.8)
[2018-04-24 20:43] LABS: ALB/GLOB RATIO 1.3 (1.0-2.1); ALBUMIN 4.2 g/dL (3.5-5.0); ALT/SGPT 19 U/L (9-52); AST/SGOT 21 U/L (14-36); BLOOD UREA NITROGEN 13 mg/dl (7-17); CALCIUM 9.3 mg/dL (8.4-10.2); GFR NON-AFRICAN AMERICAN > 60
--- NOTE | 2018-04-24 21:02 | ED PDOC ---
Syncope/Near Syncope/Dizziness Time Seen by Provider: 04/24/18 19:27 Chief Complaint (Nursing): Weakness/Neurological Deficit Chief Complaint (Provider): Weakness/Neurological Deficit History Per: Patient History/Exam Limitations: no limitations Onset/Duration Of Symptoms: Hrs (x1 hour) Additional Complaint(s): Coretta Leonardo is a 37 year old female with a past medical history of anxiety and depression, who presents to the emergency department complaining of dizziness, onset x1 hour ago. Patient states she was given a loosie cigarette from an unreliable person. She states that after some time, she started to feel dizziness, light headed and nausea. Patient states that the cigarette may have been laced with an illicit substance. At present, patient states that symptoms have improved. PMD: Zi Butler Past Medical History Reviewed: Historical Data, Nursing Documentation, Vital Signs Vital Signs: Last Vital Signs Temp 98.3 F 04/24/18 18:14 Pulse 88 04/24/18 18:14 Resp 16 04/24/18 18:14 BP 128/79 04/24/18 18:14 Pulse Ox 100 04/24/18 18:14 - Medical History PMH: Anxiety, Bipolar Disorder, Depression, Hypercholesterolemia, Schizophrenia Denies: Diabetes, Hepatitis, HIV, HTN, Chronic Kidney Disease, Seizures, Sexually Transmitted Disease - Surgical History Surgical History: (x3) - Family History Family History: States: Unknown Family Hx - Social History Drugs: Denies - Immunization History Hx Tetanus Toxoid Vaccination: No Hx Influenza Vaccination: No Hx Pneumococcal Vaccination: No - Home Medications Home Medications: Ambulatory Orders Medication Instructions Recorded Acetaminophen [Acetaminophen 8 650 mg PO Q8 PRN #21 tablet.er 12/23/17 Hour] Amoxicillin/Clavulanate [Augmentin 1 tab PO BID #14 tab 12/23/17 875 MG-125 MG Tab] Nitrofurantoin Macrocrystals 100 mg PO Q12 4 Days #8 cap 01/18/18 [Macrobid] OLANZapine [Zyprexa] 10 mg PO HS 30 Days #30 tab 01/18/18 Olanzapine [Zyprexa] 5 mg PO DAILY 30 Days #30 tablet 01/18/18 Penicillin VK [Penicillin VK Tab] 500 mg PO BID #14 tab 01/25/18 oxyCODONE/Acetaminophen [Percocet 1 ea PO Q6 PRN #7 tab 01/25/18 5/325 mg Tab] Acetaminophen [Athenol] 650 mg PO Q6H #10 tablet 02/07/18 Amoxicillin/Clavulanate [Augmentin 1 tab PO BID #20 tab 02/07/18 875 MG-125 MG] Tranexamic Acid 1,300 mg PO TID #30 tablet 03/15/18 - Allergies Allergies/Adverse Reactions: Allergies Allergy/AdvReac Type Severity Reaction Status Date / Time aspirin AdvReac upset Verified 04/05/18 23:30 stomach Review of Systems ROS Statement: Except As Marked, All Systems Reviewed And Found Negative Cardiovascular: Positive for: Light Headedness Gastrointestinal: Positive for: Nausea Neurological: Positive for: Dizziness Physical Exam - Reviewed Nursing Documentation Reviewed: Yes Vital Signs Reviewed: Yes - Physical Exam Appears: Positive for: Non-toxic, No Acute Distress Head Exam: Positive for: ATRAUMATIC, NORMOCEPHALIC Skin: Positive for: Normal Color, Warm, Dry Eye Exam: Positive for: Normal appearance, EOMI, PERRL ENT: Positive for: Normal ENT Inspection Neck: Positive for: Normal, Painless ROM, Supple Cardiovascular/Chest: Positive for: Regular Rate, Rhythm. Negative for: Murmur Respiratory: Positive for: Normal Breath Sounds. Negative for: Respiratory Distress Gastrointestinal/Abdominal: Positive for: Normal Exam, Soft. Negative for: Tenderness Back: Positive for: Normal Inspection. Negative for: L CVA Tenderness, R CVA Tenderness, Vertebral Tenderness Extremity: Positive for: Normal ROM. Negative for: Pedal Edema, Deformity Neurologic/Psych: Positive for: Alert, Oriented. Negative for: Motor/Sensory Deficits - Laboratory Results Result Diagrams: 04/24/18 20:11 04/24/18 20:11 Lab Results: Total Bilirubin 0.2 mg/dl (0.2-1.3) 04/24/18 20:11 AST 21 U/L (14-36) 04/24/18 20:11 ALT 19 U/L (9-52) 04/24/18 20:11 Alkaline Phosphatase 89 U/L (38-126) 04/24/18 20:11 Total Protein 7.5 G/DL (6.3-8.2) 04/24/18 20:11 Albumin 4.2 g/dL (3.5-5.0) 04/24/18 20:11 Globulin 3.3 gm/dL (2.2-3.9) 04/24/18 20:11 Albumin/Globulin Ratio 1.3 (1.0-2.1) 04/24/18 20:11 - ECG O2 Sat by Pulse Oximetry: 100 (RA) Pulse Ox Interpretation: Normal Medical Decision Making Medical Decision Making: Time: 1929 Impression: 37 year old female with non specific dizziness, in setting of cigarette usage. Plan: --Alcohol serum --CMP --Urine drug screen --ED urine --ED urine dipstick --CBC with differential --Sodium chloride 1,000 ml --IV insertion --Accucheck [Glucose, blood, POC] Time: 2137 Patient's labs have been reviewed and have no significant abnormalities. Patient is stable and will be discharged. Diagnosis is non specific dizziness. Scribe Attestation: Documented by Jesús Tolbert, acting as a scribe for Toan Hutton MD. Provider Scribe Attestation: All medical record entries made by the Scribe were at my direction and personally dictated by me. I have reviewed the chart and agree that the record accurately reflects my personal performance of the history, physical exam, medical decision making, and the department course for this patient. I have also personally directed, reviewed, and agree with the discharge instructions and disposition. Disposition - Clinical Impression Clinical Impression: Dizziness - Disposition Disposition: Routine/Home Disposition Time: 21:38 Condition: STABLE Instructions: Dizziness, Nonvertigo, (DC) Forms: [facility] ([place])
[2018-04-24 21:08] LABS: BARBITURATES, UR NEGATIVE (NEGATIVE); OPIATES, UR NEGATIVE (NEGATIVE); PHENCYCLIDINE, UR NEGATIVE (NEGATIVE)
[2018-04-24 21:32] LABS: BENZODIAZEPINES, UR NEGATIVE (NEGATIVE)
[2018-04-24 22:00] VITALS: BP 137/86; PULSE 91; RESP 18; O2SAT 98
== END 2018-04-24 22:05 | disposition home or self-care (01) ==
LOC: H.ER 17:37
DX: R42 Dizziness and giddiness (principal); E78.00 Pure hypercholesterolemia, unspecified; F20.9 Schizophrenia, unspecified; F31.9 Bipolar disorder, unspecified; F41.9 Anxiety disorder, unspecified; Z88.6 Allergy status to analgesic agent
CPT/HCPCS: 80053; 80320; 80324; 80345; 80346; 80349; 80353; 80358; 80361; 81025; 83992; 85025; 96360; 99285; J7030

== ENCOUNTER 2018-04-26 18:21 | Emergency (ER) | payer MEDICAID ==
[2018-04-26 18:22] VITALS: BMI 22.4
[2018-04-26 18:43] VITALS: BP 130/88; PULSE 87; RESP 16; TEMP 98.4; O2SAT 100
--- NOTE | 2018-04-26 20:32 | ED PDOC ---
HPI: General Adult Time Seen by Provider: 04/26/18 19:04 Chief Complaint (Nursing): Med Refill Chief Complaint (Provider): Medication Refill History Per: Patient History/Exam Limitations: no limitations Additional Complaint(s): 37 year old female presents to the ED stating she has not taken 10mg Zyprexa daily in 1 week. Patient has an appointment with Dr. Don on Sunday. Patient offers no complaints right now. Denies suicidal ideation, homicidal ideation, and hallucinations. PMD: Zi Brooks Past Medical History Reviewed: Historical Data, Nursing Documentation, Vital Signs Vital Signs: Last Vital Signs Temp 98.4 F 04/26/18 18:42 Pulse 87 04/26/18 18:42 Resp 16 04/26/18 18:42 BP 130/88 04/26/18 18:42 Pulse Ox 100 04/26/18 18:42 - Medical History PMH: Anxiety, Bipolar Disorder, Depression, Hypercholesterolemia, Schizophrenia Denies: Diabetes, Hepatitis, HIV, HTN, Chronic Kidney Disease, Seizures, Sexually Transmitted Disease - Surgical History Surgical History: (x3) - Family History Family History: States: Unknown Family Hx - Immunization History Hx Tetanus Toxoid Vaccination: No Hx Influenza Vaccination: No Hx Pneumococcal Vaccination: No - Home Medications Home Medications: Ambulatory Orders Medication Instructions Recorded RX: Acetaminophen [Acetaminophen 8 650 mg PO Q8 PRN #21 tablet.er 12/23/17 Hour] RX: Amoxicillin/Clavulanate 1 tab PO BID #14 tab 12/23/17 [Augmentin 875 MG-125 MG Tab] RX: Nitrofurantoin Macrocrystals 100 mg PO Q12 4 Days #8 cap 01/18/18 [Macrobid] RX: OLANZapine [Zyprexa] 10 mg PO HS 30 Days #30 tab 01/18/18 RX: Olanzapine [Zyprexa] 5 mg PO DAILY 30 Days #30 tablet 01/18/18 RX: Penicillin VK [Penicillin VK 500 mg PO BID #14 tab 01/25/18 Tab] oxyCODONE/Acetaminophen [Percocet 1 ea PO Q6 PRN #7 tab 01/25/18 5/325 mg Tab] Amoxicillin/Clavulanate [Augmentin 1 tab PO BID #20 tab 02/07/18 875 MG-125 MG] RX: Acetaminophen [Athenol] 650 mg PO Q6H #10 tablet 02/07/18 RX: Tranexamic Acid 1,300 mg PO TID #30 tablet 03/15/18 OLANZapine [ZyPREXA] 10 mg PO DAILY #4 tab 04/26/18 - Allergies Allergies/Adverse Reactions: Allergies Allergy/AdvReac Type Severity Reaction Status Date / Time aspirin AdvReac upset Verified 04/05/18 23:30 stomach Review of Systems ROS Statement: Except As Marked, All Systems Reviewed And Found Negative Psych: Negative for: Suicidal ideation (and homicidal ideation), Other (hallucinations) Physical Exam - Reviewed Nursing Documentation Reviewed: Yes Vital Signs Reviewed: Yes - Physical Exam Appears: Positive for: No Acute Distress Eye Exam: Positive for: Normal appearance Neurologic/Psych: Positive for: Alert, Oriented (x3), Mood/Affect (calm and cooperative mood) - ECG O2 Sat by Pulse Oximetry: 100 (RA) Pulse Ox Interpretation: Normal Medical Decision Making Medical Decision Making: Initial Impression: Medication refill Initial Plan: Patient advised to follow up with Dr. Don as previously scheduled without fail. Scribe Attestation: Documented by Jesus Quijano acting as a scribe for Jono ZEPEDA Provider Scribe Attestation: All medical record entries made by the Scribe were at my direction and personally dictated by me. I have reviewed the chart and agree that the record accurately reflects my personal performance of the history, physical exam, medical decision making, and the department course for this patient. I have also personally directed, reviewed, and agree with the discharge instructions and disposition. Disposition - Clinical Impression Clinical Impression: Medication refill, Bipolar disorder - Patient ED Disposition Is Patient to be Admitted: No - Disposition Referrals: Zi Butler MD [Primary Care Provider] - Disposition: Routine/Home Disposition Time: 19:00 Condition: STABLE Additional Instructions: FOLLOW UP WITH DR. DON ON SUNDAY PREVIOUSLY SCHEDULED WITHOUT FAIL RETURN TO ED IMMEDIATELY IF SYMPTOMS WORSEN DEANNA CASTRO, thank you for letting us take care of you today. Your provider was Santo Ramos MD and you were treated for NEEDS REFILL OF RX. The emergency medical care you received today was directed at your acute symptoms. If you were prescribed any medication, please fill it and take as directed. It may take several days for your symptoms to resolve. Return to the Emergency Department if your symptoms worsen, do not improve, or if you have any other problems. Please contact your doctor or call one of the physicians/clinics you have been referred to that are listed on the Patient Visit Information form that is included in your discharge packet. Bring any paperwork you were given at discharge with you along with any medications you are taking to your follow up visit. Our treatment cannot replace ongoing medical care by a primary care provider outside of the emergency department. Thank you for allowing the [facility] team to be part of your care today. If you had an X-Ray or CT scan: A Radiologist will review the ED reading if any change in treatment is needed we will contact you. If you had a blood, urine, or wound culture: It will take several days for the results, if any change in treatment is needed we will contact you. If you had an STI test: It will take 48 hours for the results. Please call after 1 week if you have not heard back. Prescriptions: OLANZapine [ZyPREXA] 10 mg PO DAILY #4 tab Instructions: Bipolar Disorder (DC) Forms: [facility] ([place])
== END 2018-04-26 19:30 | disposition home or self-care (01) ==
LOC: SUPCPDRO 18:21 → H.ER 18:21
DX: Z76.0 Encounter for issue of repeat prescription (principal); F31.9 Bipolar disorder, unspecified

== ENCOUNTER 2018-05-07 11:31 | Emergency (ER) | payer MEDICAID ==
[2018-05-07 11:31] VITALS: BMI 22.4
[2018-05-07 11:40] VITALS: BP 153/99; PULSE 97; RESP 18; TEMP 98.5; O2SAT 98
--- NOTE | 2018-05-07 12:53 | ED PDOC ---
HPI: General Adult Time Seen by Provider: 05/07/18 12:10 Chief Complaint (Nursing): Med Refill Chief Complaint (Provider): Medication Refill History Per: Patient History/Exam Limitations: no limitations Onset/Duration Of Symptoms: Days (x4) Additional Complaint(s): 37 year old female presents to the ED requesting a refill of her Zyprexa 10mg hs which she takes for her bipolar and schizophrenia. Patient states that she was supposed to see her psychiatrist, Dr. Don, but missed her appointment accidentally and does not have another one until 05/22. She is reporting that she is tired, but this always occurs when not on Zyprexa. Otherwise denies suicidal ideation, homicidal ideation, hallucinations, weakness, fever, and chills. PMD: Zi Butler Psychiatrist: Dr. Don Past Medical History Reviewed: Historical Data, Nursing Documentation, Vital Signs Vital Signs: Last Vital Signs Temp 98.5 F 05/07/18 11:39 Pulse 97 H 05/07/18 11:39 Resp 18 05/07/18 11:39 BP 153/99 H 05/07/18 11:39 Pulse Ox 98 05/07/18 11:39 - Medical History PMH: Anxiety, Bipolar Disorder, Depression, Hypercholesterolemia, Schizophrenia Denies: Diabetes, Hepatitis, HIV, HTN, Chronic Kidney Disease, Seizures, Sexually Transmitted Disease - Surgical History Surgical History: (x3) - Family History Family History: States: Unknown Family Hx - Social History Current smoker - smoking cessation education provided: Yes (heavy) Alcohol: Social Drugs: Denies - Immunization History Hx Tetanus Toxoid Vaccination: No Hx Influenza Vaccination: No Hx Pneumococcal Vaccination: No - Home Medications Home Medications: Ambulatory Orders Medication Instructions Recorded Acetaminophen [Acetaminophen 8 650 mg PO Q8 PRN #21 tablet.er 12/23/17 Hour] Amoxicillin/Clavulanate [Augmentin 1 tab PO BID #14 tab 12/23/17 875 MG-125 MG Tab] Nitrofurantoin Macrocrystals 100 mg PO Q12 4 Days #8 cap 01/18/18 [Macrobid] OLANZapine [Zyprexa] 10 mg PO HS 30 Days #30 tab 01/18/18 Olanzapine [Zyprexa] 5 mg PO DAILY 30 Days #30 tablet 01/18/18 Penicillin VK [Penicillin VK Tab] 500 mg PO BID #14 tab 01/25/18 oxyCODONE/Acetaminophen [Percocet 1 ea PO Q6 PRN #7 tab 01/25/18 5/325 mg Tab] Acetaminophen [Athenol] 650 mg PO Q6H #10 tablet 02/07/18 Amoxicillin/Clavulanate [Augmentin 1 tab PO BID #20 tab 02/07/18 875 MG-125 MG] Tranexamic Acid 1,300 mg PO TID #30 tablet 03/15/18 OLANZapine [ZyPREXA] 10 mg PO DAILY #4 tab 04/26/18 OLANZapine [ZyPREXA] 10 mg PO HS #2 tab 05/07/18 - Allergies Allergies/Adverse Reactions: Allergies Allergy/AdvReac Type Severity Reaction Status Date / Time aspirin AdvReac upset Verified 05/07/18 11:37 stomach Review of Systems ROS Statement: Except As Marked, All Systems Reviewed And Found Negative Constitutional: Positive for: Other (tiredness). Negative for: Fever, Chills, Weakness Psych: Negative for: Suicidal ideation (or homicidal ideation), Other (hallucinations) Physical Exam - Reviewed Nursing Documentation Reviewed: Yes Vital Signs Reviewed: Yes - Physical Exam Appears: Positive for: No Acute Distress Eye Exam: Positive for: Normal appearance Cardiovascular/Chest: Positive for: Regular Rate, Rhythm Respiratory: Positive for: Normal Breath Sounds. Negative for: Respiratory Distress Neurologic/Psych: Positive for: Alert, Oriented (x3), Mood/Affect (calm, cooperative, friendly), Gait (steady, unassisted) - ECG O2 Sat by Pulse Oximetry: 98 (RA) Pulse Ox Interpretation: Normal Medical Decision Making Medical Decision Making: Time: 1215 Initial Impression: medication refill Initial Plan: --Patient informed that she cannot be given a full refill to cover her until her next appointment. Attempted to call Dr. Don, however, he did not answer or call back. Patient advised to contact him as soon as possible. All questions answered and patient verbalized agreement with plan. ------- Scribe Attestation: Documented by Thi Jain, acting as a scribe for Jono Nj PA-C. Provider Scribe Attestation: All medical record entries made by the Scribe were at my direction and personally dictated by me. I have reviewed the chart and agree that the record accurately reflects my personal performance of the history, physical exam, medical decision making, and the department course for this patient. I have also personally directed, reviewed, and agree with the discharge instructions and disposition. Disposition - Clinical Impression Clinical Impression: Medication refill - Patient ED Disposition Is Patient to be Admitted: No Counseled Patient/Family Regarding: Need For Followup, Rx Given - Disposition Referrals: [facility] [Outside] Disposition Time: 12:30 Condition: STABLE Additional Instructions: DEANNA CASTRO, thank you for letting us take care of you today. Your provider was Job Green MD and you were treated for TIRED,MED REFILL. The emergency medical care you received today was directed at your acute symptoms. If you were prescribed any medication, please fill it and take as directed. It may take several days for your symptoms to resolve. Return to the Emergency Department if your symptoms worsen, do not improve, or if you have any other problems. Please contact your doctor or call one of the physicians/clinics you have been referred to that are listed on the Patient Visit Information form that is included in your discharge packet. Bring any paperwork you were given at discharge with you along with any medications you are taking to your follow up visit. Our treatment cannot replace ongoing medical care by a primary care provider outside of the emergency department. Thank you for allowing the [facility] team to be part of your care today. If you had an X-Ray or CT scan: A Radiologist will review the ED reading if any change in treatment is needed we will contact you. If you had a blood, urine, or wound culture: It will take several days for the results, if any change in treatment is needed we will contact you. If you had an STI test: It will take 48 hours for the results. Please call after 1 week if you have not heard back. Prescriptions: OLANZapine [ZyPREXA] 10 mg PO HS #2 tab Instructions: Olanzapine Forms: [employer] (Slovak)
== END 2018-05-07 12:40 | disposition home or self-care (01) ==
LOC: H.ER 11:31
DX: F20.9 Schizophrenia, unspecified (principal); F31.9 Bipolar disorder, unspecified; F17.200 Nicotine dependence, unspecified, uncomplicated; Z76.0 Encounter for issue of repeat prescription; Z88.6 Allergy status to analgesic agent